=== PATIENT | female | born 1930 | race Caucasian/White ===

== ENCOUNTER 2016-11-17 16:19 | Inpatient (IN) | payer OTHER ==
[~2016-11-17] VITALS: Ht 172.7 cm; Wt 96.5 kg
[2016-11-17] MEDS ORDERED: FURO80TA63 PO (17:04)
[2016-11-17] MEDS ORDERED: TRAZ50TA35 PO (17:04)
[2016-11-17] MEDS ORDERED: ATOR-24 PO (17:04)
[2016-11-17] MEDS ORDERED: GLC/500 PO (17:04)
[2016-11-17] MEDS ORDERED: FLUT0.15 NAE (17:04)
[2016-11-17] MEDS ORDERED: ASPI81TA28 PO (17:04)
[2016-11-17] MEDS ORDERED: LORA-741 PO (17:04)
[2016-11-17] MEDS ORDERED: ALLO300T2 PO (17:04)
[2016-11-17 17:12] LABS: BASO % 0.4 %; BASO ABS # 0.03 K/uL (0-0.2); COMPLETE YES; EOS % 0.6 %; HEMATOCRIT 38.4 % (37-47); IG% 0.4 %; LYMPH % 14.3 %; LYMPH ABS # 0.98 K/uL (1.2-3.4); MEAN CELL VOLUME 90.6 fL (80-100); MEAN CORPUSCULAR HEMOGLOBIN 27.6 pg (25-34); MEAN CORPUSCULAR HGB CONC 30.5 g/dl (32-36); MEAN PLATELET VOLUME 11.3 fL (7.4-10.4); MONO % 5.8 %; NEUT % 78.5 %; PLATELET COUNT 217 K/uL (130-400); RED BLOOD COUNT 4.24 M/uL (4.2-5.4); WHITE BLOOD COUNT 6.85 K/uL (4.8-10.8)
[2016-11-17 17:18] LABS: CALCIUM 9.3 mg/dl (8.5-10.1); CREATININE 2.1 mg/dl (0.60-1.20); POTASSIUM 3.3 mmol/L (3.5-5.1)
--- NOTE | 2016-11-17 17:27 | DIAGNOSTIC IMAGING REPORT ---
CHEST ONE VIEW PORTABLE CLINICAL HISTORY: Respiratory distress COMPARISON STUDY: No previous studies for comparison. FINDINGS: The heart is enlarged. There is slight elevation of the interstitium suggesting mild pulmonary vascular congestion. There is no lobar consolidation. There are no significant pleural fusions.[ IMPRESSION: Cardiomegaly and mild pulmonary vascular congestion. No evidence of lobar consolidation Electronically signed by: Chris Sharif M.D. 11/17/2016 5:26 PM Dictated Date/Time: 11/17/2016 5:25 PM
[2016-11-17 17:30] LABS: ALB/GLOB RATIO 1.2 (0.9-2)
--- NOTE | 2016-11-17 17:41 | EMERGENCY ROOM VISIT NOTE ---
History First contact with patient: 16:47 Chief Complaint: SHORTNESS OF BREATH Stated Complaint: SOB, CHF History of Present Illness The patient is a 86 year old female who presents to the Emergency Room with complaints of exertional shortness of breath over the past month or so that has been progressively worsening. Patient states that she went to see her PCP today for a routine checkup, her doctor was concerned that she hasn't had a 10 pound weight gain in 2 weeks, with increasing lower extremity edema, crackles on lung exam, and shortness of breath at rest. She was sent to the emergency department for further evaluation and possible admission. She does report a history of congestive heart failure in the past and she currently takes 80 mg of oral Lasix daily, she states she has been taking this as prescribed and has not missed any doses. She denies any chest pain, palpitations, dizziness or syncope, abdominal pain, leg pain, urinary complaints, rash. She denies any history of DVT or PE. She is not on blood thinners. Review of Systems A complete 10 point review of systems was reviewed with the patient with pertinent positives and negatives as per history of present illness. All else were negative. Past Medical/Surgical History Medical Problems: (1) Anxiety (2) Breast cancer (3) DM type 2 (diabetes mellitus, type 2) (4) HLD (hyperlipidemia) (5) HTN (hypertension) (6) EVGENY (obstructive sleep apnea) (7) Systolic CHF Social History Smoking Status: Never Smoker Current/Historical Medications Scheduled Allopurinol (Zyloprim), 300 MG PO DAILY Aspirin (Aspirin Ec), 81 MG PO DAILY Atorvastatin (Lipitor), 40 MG PO DAILY Fluticasone Propionate (Nasal) (Flonase Allergy Relief), 2 SPRAYS CLARISSE DAILY Furosemide (Lasix), 80 MG PO DAILY Metformin Hcl (Glucophage), 500 MG PO BID Trazodone Hcl (Trazodone), 2 TAB PO HS Scheduled PRN Lorazepam (Ativan), 0.5 MG PO HS PRN for Insomnia Allergies Coded Allergies: Naproxen (Verified Allergy, Unknown, ., 11/17/16) Tramadol (Verified Allergy, Unknown, ., 11/17/16) Physical Exam Vital Signs Date Time Temp Pulse Resp B/P (MAP) Pulse Ox O2 Delivery O2 Flow Rate FiO2 11/17/16 17:44 Nasal Cannula 2.0 11/17/16 17:42 95 28 102/62 96 Room Air 11/17/16 16:28 95 Room Air 11/17/16 16:28 95 Room Air 11/17/16 16:28 36.9 101 25 98/60 97 Room Air Physical Exam CONSTITUTIONAL: No acute distress, but does appear to have slightly labored breathing. She is able to speak in full sentences. Well appearing and well nourished. Alert and oriented X 4 with normal affect. HEENT: Normocephalic, atraumatic. Pupils equal, round and reactive to light, EOMI. TMs normal. Pharynx normal. NECK: Supple, full active range of motion without discomfort. RESPIRATORY: Mildly tachypnea with labored breathing. Lungs diminished throughout, with fine crackles bilaterally, no wheezing or rhonchi heard. CARDIOVASCULAR: Regular rate and rhythm with no murmurs, rubs or gallops. Normal peripheral perfusion. Bilateral lower extremity 3+ pitting edema. GASTROINTESTINAL: Soft, nontender, distended, obese. Bowel sounds present in all quadrants. MUSCULOSKELETAL: Full range of motion of all joints without discomfort. INTEGUMENTARY: No rash or other significant dermatologic conditions noted. NEUROLOGIC: Cranial nerves II-XII grossly intact. No focal neurologic deficits noted. Medical Decision & Procedures ER Provider Diagnostic Interpretation: CHEST ONE VIEW PORTABLE CLINICAL HISTORY: Respiratory distress COMPARISON STUDY: No previous studies for comparison. FINDINGS: The heart is enlarged. There is slight elevation of the interstitium suggesting mild pulmonary vascular congestion. There is no lobar consolidation. There are no significant pleural fusions. IMPRESSION: Cardiomegaly and mild pulmonary vascular congestion. No evidence of lobar consolidation. Laboratory Results 11/17/16 16:29 Red Blood Count 4.24, Mean Corpuscular Volume 90.6, Mean Corpuscular Hemoglobin 27.6, Mean Corpuscular Hemoglobin Concent 30.5, Mean Platelet Volume 11.3, Neutrophils (%) (Auto) 78.5, Lymphocytes (%) (Auto) 14.3, Monocytes (%) (Auto) 5.8, Eosinophils (%) (Auto) 0.6, Basophils (%) (Auto) 0.4, Neutrophils # (Auto) 5.37, Lymphocytes # (Auto) 0.98, Monocytes # (Auto) 0.40, Eosinophils # (Auto) 0.04, Basophils # (Auto) 0.03 11/17/16 16:29 Test 11/17/16 16:29 11/17/16 17:38 White Blood Count 6.85 K/uL (4.8-10.8) Red Blood Count 4.24 M/uL (4.2-5.4) Hemoglobin 11.7 g/dL (12.0-16.0) Hematocrit 38.4 % (37-47) Mean Corpuscular Volume 90.6 fL (80-100) Mean Corpuscular Hemoglobin 27.6 pg (25-34) Mean Corpuscular Hemoglobin Concent 30.5 g/dl (32-36) Platelet Count 217 K/uL (130-400) Mean Platelet Volume 11.3 fL (7.4-10.4) Neutrophils (%) (Auto) 78.5 % Lymphocytes (%) (Auto) 14.3 % Monocytes (%) (Auto) 5.8 % Eosinophils (%) (Auto) 0.6 % Basophils (%) (Auto) 0.4 % Neutrophils # (Auto) 5.37 K/uL (1.4-6.5) Lymphocytes # (Auto) 0.98 K/uL (1.2-3.4) Monocytes # (Auto) 0.40 K/uL (0.11-0.59) Eosinophils # (Auto) 0.04 K/uL (0-0.5) Basophils # (Auto) 0.03 K/uL (0-0.2) RDW Standard Deviation 59.4 fL (36.4-46.3) RDW Coefficient of Variation 18.4 % (11.5-14.5) Immature Granulocyte % (Auto) 0.4 % Immature Granulocyte # (Auto) 0.03 K/uL (0.00-0.02) Prothrombin Time 12.6 SECONDS (9.0-12.0) Prothromb Time International Ratio 1.2 (0.9-1.1) Activated Partial Thromboplast Time 25.9 SECONDS (21.0-31.0) Partial Thromboplastin Ratio 1.0 Anion Gap 11.0 mmol/L (3-11) Est Creatinine Clear Calc Drug Dose 23.8 ml/min Estimated GFR () 23.9 Estimated GFR (Non- 20.6 BUN/Creatinine Ratio 29.0 (10-20) Calcium Level 9.3 mg/dl (8.5-10.1) Magnesium Level 1.3 mg/dl (1.8-2.4) Total Bilirubin 1.4 mg/dl (0.2-1) Aspartate Amino Transf (AST/SGOT) 34 U/L (15-37) Alanine Aminotransferase (ALT/SGPT) 20 U/L (12-78) Alkaline Phosphatase 73 U/L (45-117) Pro-B-Type Natriuretic Peptide 85594 pg/ml (0-1800) Total Protein 7.0 gm/dl (6.4-8.2) Albumin 3.8 gm/dl (3.4-5.0) Globulin 3.2 gm/dl (2.5-4.0) Albumin/Globulin Ratio 1.2 (0.9-2) Arterial Blood pH 7.47 (7.35-7.45) Arterial Blood Partial Pressure CO2 34 mmHg (35-46) Arterial Blood Partial Pressure O2 78 mm/Hg (80-95) Arterial Blood HCO3 25 mmol/L (19-24) Arterial Blood Oxygen Saturation 95.2 % (90-95) Arterial Blood Base Excess 1.1 mEq/L (-9-1.8) Arterial Blood Gas Delivery ROOM AIR Rainer Test POS (POS) ECG Indication: SOB/dyspnea Rate (beats per minute): 98 Rhythm: sinus rhythm Findings: PVC Medical Decision CC: Patient presenting with complaint of dyspnea on exertion and at rest Interpretation of Labs: No leukocytosis, no anemia, mild hypokalemia, no other significant electrolyte abnormalities, renal insufficiency with elevated creatinine noted (unknown baseline), elevated T bili, liver enzymes otherwise normal. Slightly elevated troponin, significantly elevated pro-BNP. UA negative. Differential Diagnosis: Includes, but not limited to CHF exacerbation, fluid overload, pleural effusion, pulmonary edema, pneumonia, PE, COPD, among others. Medication Reconciliation: I attest that I have personally reviewed the patient' s current medication list. Vital signs review: I reviewed the patient's vital signs and interpret them as follows: T: Afebrile; BP: Hypotensive; HR: Tachycardic; RR: Tachypneic; Pulse Ox: Within normal limits on room air. Summary: Patient was evaluated at bedside, history of physical exam performed. Patient is alert and in no acute distress, but noted to be mildly tachypneic with respiratory rate 26-30 breaths per minute, mild use of intercostal muscles. She is also noted to be hypotensive and tachycardic on initial evaluation. Lung sounds diminished throughout, bilateral rales two thirds of the way up. EKG reviewed at bedside, sinus rhythm with occasional PVCs, wide-complex QRS and possible lateral ischemic changes, no previous EKG for comparison. Orders were placed at bedside for labs including troponin and pro-BNP, UA, chest x-ray to evaluate for congestive heart failure, pneumonia. Patient discussed with Dr. Gaxiola, who agrees with my assessment and plan. Labs reviewed as above, notable for elevated creatinine of 2.1 (unknown baseline ). Significantly elevated proBNP, as well as a partially elevated troponin which may indicate an ischemia versus developing NSTEMI. Chest x-ray suggestive of pulmonary vascular congestion consistent with CHF exacerbation. I discussed the patient with ALLISON Garcia with the hospitalist group, who agrees to evaluate the patient for admission. I did inform her of patient's hypotension, she requested we withhold any diuretics at this time until she can evaluate the patient. Patient reassessed multiple times throughout ED stay, she remained stable, tachycardia improving, and no acute complaints. She continues to deny any chest pain. Patient stable at time of admission. Impression Primary Impression: Congestive heart failure Additional Impression: Renal insufficiency Departure Information Dispostion Admitted as an inpatient Condition FAIR Referrals Danielle Nicholson M.D. (PCP) Patient Instructions My [facility] Problem Qualifiers Primary Impression: Congestive heart failure Congestive heart failure type: unspecified congestive heart failure type Congestive heart failure chronicity: acute on chronic Qualified Codes: I50.9 - Heart failure, unspecified
[2016-11-17 18:00] LABS: ALLEN TEST POS (POS); ARTERIAL BLD GAS O2 SATURATION 95.2 % (90-95); ARTERIAL BLOOD GAS BASE EXCESS 1.1 mEq/L (-9-1.8); ARTERIAL BLOOD GAS HCO3 25 mmol/L (19-24); ARTERIAL BLOOD GAS PO2 78 mm/Hg (80-95); ARTERIAL BLOOD GAS pH 7.47 (7.35-7.45); O2 ADMINISTRATION ROOM AIR
--- NOTE | 2016-11-17 18:31 | DIAGNOSTIC IMAGING REPORT ---
BILATERAL LOWER EXTREMITY VENOUS DOPPLER CLINICAL HISTORY: Bilateral lower extremity edema. COMPARISON STUDY: No previous studies for comparison. TECHNIQUE: Sonography of the deep venous system of the bilateral lower extremities was performed. Compression and augmentation were evaluated. FINDINGS: The bilateral common femoral, superficial femoral and popliteal veins were compressible. Augmentation was normal. Flow was shown within the deep calf vessels. Lower extremity edema was identified. IMPRESSION: No evidence of deep venous thrombus within the bilateral lower extremities. Electronically signed by: Cruz Barajas M.D. 11/17/2016 6:30 PM Dictated Date/Time: 11/17/2016 6:29 PM
[2016-11-17] MEDS ORDERED: ACETAMINOPHEN 325 MG TAB PO PRN (19:00)
[2016-11-17] MEDS ORDERED: PROMETHAZINE HCL INJ 12.5 MG in SODIUM CHLORIDE 0.9% 50ML 50 ML IV PRN (19:15)
--- NOTE | 2016-11-17 19:26 | EMERGENCY ROOM VISIT NOTE ---
ED Visit Note First contact with patient: 16:47 Patient was seen by our PA/COKE OVEN MASON. I was involved in the patient's care and did evaluate the patient myself. I was involved in the care throughout the ER stay. The patient appears to be fluid overloaded. She presents mildly tachycardic and somewhat hypotensive. She has been short of breath. BNP is quite elevated. Troponin is mildly elevated. There is renal insufficiency. A hospital stay for diuresis and further care is required. The on-call hospitalist has been consulted.
[2016-11-17 19:34] VITALS: Ht 172.7 cm; Wt 96.5 kg
[2016-11-17] MEDS ORDERED: GLUCOSE 10 TABS/TUBE PO PRN (20:00)
[2016-11-17] MEDS ORDERED: GLUCAGON FOR INJ 1 MG VIAL SQ PRN (20:00)
[2016-11-17] MEDS ORDERED: GLUCOSE 40% GEL 15 GM TUBE PO PRN (20:00)
[2016-11-17] MEDS ORDERED: DEXTROSE 50% 50 ML SYR IV PRN (20:00)
[2016-11-17 20:15] VITALS: BP 106/70; PULSE 105; TEMP 36.6; O2SAT 100
[2016-11-17] MEDS: INSULIN ASPART 100 UNITS/ML 3 ML PEN SC SCH (21:00)
[2016-11-17] MEDS ORDERED: FUROSEMIDE INJ 40 MG in SYRINGE 0 ML IV ONE (21:00)
[2016-11-17] MEDS ORDERED: POTASSIUM CHLORIDE 20 MEQ TABCR PO ONE (21:00)
[2016-11-17] MEDS ORDERED: INFLUENZA VACCINE HIGH DOSE 65+ 0.5 ML SYR IM. ONE (21:00)
[2016-11-17] MEDS ORDERED: INFLUENZA ADMINISTRATION CHARGE ONE (21:00)
[2016-11-17] MEDS: MAGNESIUM SULFATE 1GM / D5W 1 GM in PREMIXED IN D5W 100 ML IV SCH ×3 (21:01→23:06)
[2016-11-17 21:04] LABS: INR 1.2 (0.9-1.1); PROTHROMBIN TIME (PATIENT) 12.6 SECONDS (9.0-12.0)
[2016-11-17 21:30] LABS: URINE APPEARANCE CLOUDY (CLEAR); URINE BILIRUBIN NEG (NEG); URINE COLOR DK YELLOW; URINE NITRITE NEG (NEG); URINE SPECIFIC GRAVITY 1.022 (1.000-1.030); UROBILINOGEN NEG (NEG)
[2016-11-17 21:42] LABS: MANUAL MICROSCOPIC REQUIRED? YES; REVIEW REQ? NO
[2016-11-17 21:43] LABS: URINE AMORPHOUS SEDIMENT PRESENT (NONE PRSENT); URINE BACTERIA NEG (NEG); URINE MUCUS PRESENT (NONE PRSENT); URINE RBC 0-4 /hpf (0-4)
[2016-11-17] MEDS: HEPARIN SOD 5000 UNIT/0.5 ML CARP SQ SCH (22:05)
--- NOTE | 2016-11-17 22:42 | History and Physical ---
History & Physical Date & Time of Service: Nov 17, 2016 ~ 18:30 Chief Complaint: Shortness of Breath, Weight Gain, Edema Primary Care Physician: Radames Valdez M.D. History of Present Illness 86 year old female who presented to the ED by referral of her PCP for evaluation of shortness of breath, worsening edema, and weight gain. 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 She has been been having symptoms of shortness of breath and edema for the past 1 1/2 months. She initially was taking Lasix 80mg daily and that was increased to BID dosing. She continued to have symptoms so Zaroxolyn 3 times weekly was added. Then due to worsening renal function, Zaroxolyn was stopped and she was continued on the Lasix 80mg BID. Labs were then again checked and renal function was unchanged so she was decreased back down to Lasix 80mg daily. Patient reports persistent shortness of breath. She has shortness of breath with minimal activity. She has had a dry non productive cough. She denies chest pain or palpitations. She reports some mild lightheadedness when standing too quickly. No syncopal events. She has lower extremity edema that has been gradually worsening. Abdomen is a little more swollen as well. She denies abdominal pain, nausea, vomiting, or diarrhea. She denies fever or chills. No urinary symptoms. In the ED, patient is saturating well on room air. CXR shows mild CHF. Creat is 2.1, K+ 3.3, Mg+ 1.3. Past Medical/Surgical History Medical Problems: (1) Anxiety Status: Chronic (2) Breast cancer Permanent Comment: s/p lymph node resection Status: Chronic (3) DM type 2 (diabetes mellitus, type 2) Status: Chronic (4) HLD (hyperlipidemia) Status: Chronic (5) HTN (hypertension) Status: Chronic (6) EVGENY (obstructive sleep apnea) Status: Chronic (7) Systolic CHF Status: Chronic Family History non contributory due to patient's advanced age Social History Smoking Status: Never Smoker Alcohol Use: none Immunizations History of Influenza Vaccine: Yes Influenza Vaccine Date: Nov 27, 2015 History of Tetanus Vaccine?: Yes Tetanus Immunization Date: Sep 17, 2015 History of Pneumococcal: Yes Pneumococcal Date: Oct 29, 2014 Multi-Drug Resistant Organisms History of MDRO: No Allergies Coded Allergies: Naproxen (Verified Allergy, Unknown, ., 11/17/16) Tramadol (Verified Allergy, Unknown, ., 11/17/16) Home Medications Scheduled Allopurinol (Zyloprim), 300 MG PO DAILY Aspirin (Aspirin Ec), 81 MG PO DAILY Atorvastatin (Lipitor), 40 MG PO DAILY Fluticasone Propionate (Nasal) (Flonase Allergy Relief), 2 SPRAYS CLARISSE DAILY Furosemide (Lasix), 80 MG PO DAILY Metformin Hcl (Glucophage), 500 MG PO BID Trazodone Hcl (Trazodone), 2 TAB PO HS Scheduled PRN Lorazepam (Ativan), 0.5 MG PO HS PRN for Insomnia Review of Systems ROS per HPI, all other systems reviewed and negative Physical Exam Vital Signs Date Time Temp Pulse Resp B/P (MAP) Pulse Ox O2 Delivery O2 Flow Rate FiO2 11/17/16 19:41 100 18 102/66 97 Nasal Cannula 2.0 11/17/16 19:34 Nasal Cannula 2.5 11/17/16 17:44 Nasal Cannula 2.0 11/17/16 17:42 95 28 102/62 96 Room Air 11/17/16 16:28 95 Room Air 11/17/16 16:28 95 Room Air 11/17/16 16:28 36.9 101 25 98/60 97 Room Air General Appearance: no apparent distress Head: normocephalic, atraumatic Eyes: normal inspection ENT: hearing grossly normal Neck: supple Respiratory/Chest: + decreased breath sounds, + pertinent finding (mild conversational dyspnea) Cardiovascular: + tachycardia (mild, HR in the 90s; regular rhythm), + pertinent finding (+2 pitting edema BLLE) Abdomen/GI: normal bowel sounds, non tender, soft, + distended Extremities/Musculoskelatal: normal inspection, no calf tenderness Neurologic/Psych: no motor/sensory deficits, alert, normal mood/affect, oriented x 3 Skin: normal color, warm/dry Diagnostics Laboratory Results Results Past 24 Hours Test 11/17/16 16:29 11/17/16 17:38 Range/Units White Blood Count 6.85 4.8-10.8 K/uL Red Blood Count 4.24 4.2-5.4 M/uL Hemoglobin 11.7 12.0-16.0 g/dL Hematocrit 38.4 37-47 % Mean Corpuscular Volume 90.6 80-100 fL Mean Corpuscular Hemoglobin 27.6 25-34 pg Mean Corpuscular Hemoglobin Concent 30.5 32-36 g/dl Platelet Count 217 130-400 K/uL Mean Platelet Volume 11.3 7.4-10.4 fL Neutrophils (%) (Auto) 78.5 % Lymphocytes (%) (Auto) 14.3 % Monocytes (%) (Auto) 5.8 % Eosinophils (%) (Auto) 0.6 % Basophils (%) (Auto) 0.4 % Neutrophils # (Auto) 5.37 1.4-6.5 K/uL Lymphocytes # (Auto) 0.98 1.2-3.4 K/uL Monocytes # (Auto) 0.40 0.11-0.59 K/uL Eosinophils # (Auto) 0.04 0-0.5 K/uL Basophils # (Auto) 0.03 0-0.2 K/uL RDW Standard Deviation 59.4 36.4-46.3 fL RDW Coefficient of Variation 18.4 11.5-14.5 % Immature Granulocyte % (Auto) 0.4 % Immature Granulocyte # (Auto) 0.03 0.00-0.02 K/uL Sodium Level 141 136-145 mmol/L Potassium Level 3.3 3.5-5.1 mmol/L Chloride Level 101 98-107 mmol/L Carbon Dioxide Level 29 21-32 mmol/L Anion Gap 11.0 3-11 mmol/L Blood Urea Nitrogen 61 7-18 mg/dl Creatinine 2.10 0.60-1.20 mg/dl Est Creatinine Clear Calc Drug Dose 23.8 ml/min Estimated GFR () 23.9 Estimated GFR (Non- 20.6 BUN/Creatinine Ratio 29.0 10-20 Random Glucose 115 70-99 mg/dl Calcium Level 9.3 8.5-10.1 mg/dl Magnesium Level 1.3 1.8-2.4 mg/dl Total Bilirubin 1.4 0.2-1 mg/dl Aspartate Amino Transf (AST/SGOT) 34 15-37 U/L Alanine Aminotransferase (ALT/SGPT) 20 12-78 U/L Alkaline Phosphatase 73 45-117 U/L Troponin I 0.086 0-0.045 ng/ml Pro-B-Type Natriuretic Peptide 82731 0-1800 pg/ml Total Protein 7.0 6.4-8.2 gm/dl Albumin 3.8 3.4-5.0 gm/dl Globulin 3.2 2.5-4.0 gm/dl Albumin/Globulin Ratio 1.2 0.9-2 Arterial Blood pH 7.47 7.35-7.45 Arterial Blood Partial Pressure CO2 34 35-46 mmHg Arterial Blood Partial Pressure O2 78 80-95 mm/Hg Arterial Blood HCO3 25 19-24 mmol/L Arterial Blood Oxygen Saturation 95.2 90-95 % Arterial Blood Base Excess 1.1 -9-1.8 mEq/L Arterial Blood Gas Delivery ROOM AIR Rainer Test POS POS Diagnostic Radiology CXR IMPRESSION: Cardiomegaly and mild pulmonary vascular congestion. No evidence of lobar consolidation BLLE DOPPLER IMPRESSION: No evidence of deep venous thrombus within the bilateral lower extremities. Impression Assessment and Plan ACUTE ON CHRONIC SYSTOLIC CHF SONIA ON CKD STAGE III - admit to tele - patient presenting to the ED by referral of her PCP for worsening shortness of breath and edema over the past ~ 6 weeks - patient with history of cardiomyopathy, presumed ischemic, with an EF of 20-25 % on echo from 02/2015 (note patient declined further ischemic work up) - patient had been on beta nadeen therapy in the past however it appears as though she self stopped this over the summer - PCP has been titrating diuretic therapy over the past ~ 6 weeks however patient has developed worsening renal function; baseline creat had run in the mid 1's and more recently has been running ~ 1.9-2.1; may need to allow higher creatine to allow for appropriate diuresis - noted no TAMMY/ARB therapy due to CKD - consider resumption of beta nadeen if BP allows - will give Lasix 40mg IV tonight - place squires for strict I/Os, daily weight, low Na+ diet - update echo - cardiology consult, input appreciated ELEVATED TROPONIN - likely demand ischemia due to acute CHF - no reports of chest pain - EKG shows new intraventricular block which is new from EKG from April 2015 however was present on EKG from the clinic on 11/06/16 - will continue to cycle cardiac enzymes - continue ASA and statin HYPOKALEMIA, HYPOMAGNESEMIA - replace, follow up labs in AM DM - hgb a1c 5.9 08/2016 - hold metformin and utilize SSI while hospitalized DVT PROPHYLAXIS - SQ Heparin CODE STATUS - Patient is a DNR as per my discussion with her. DISPO - In my clinical judgment this beneficiary meets acute admission criteria, established by [facility], that includes being hospitalized through two midnights. 86 yo F with chronic systolic heart failure from presumed ischemic heart disease (declined workup in past/no ICD in place-declined) p/w 10 lb weight gain. She has chronic orthopnea and JASMINE that has not changed. She is comfortable and denies any chest pain. She has had multiple changes in her diuretic therapy as above with Lasix and metolazone in recent weeks. She also reports a dry cough x 2 weeks. Agree that mildly elevated troponin is related to demand ischemia, however, TRS is 5 so would be quick to add heparin if cardiac enzymes carlos overnight. She self administers meds and has noted noncompliance in the past. Would likely benefit from spironolactone, hydralazine/nitrates as cannot take ACEI or ARB at this time, BB. No mortality benefit from dig but this has also been suggested. Defer med management to Cardiology. Repeat TTE pending with h/o . Denies syncope or angina. Awaiting response from Lasix given tonight and titrate as tolerated for symptom relief. I have seen and examined the patient and otherwise agree with the assessment and plan as stated. DO Parmjit Level of Care Telemetry Advanced Directives Existing Living Will: Yes Existing Power of Supervisor Tank Storage: Yes Resuscitation Status DO NOT RESUSCITATE VTE Prophylaxis VTE Risk Assessment Done? Y/N: Yes Risk Level: Moderate
[2016-11-17 23:24] VITALS: BP 105/70; PULSE 99; TEMP 36.8; O2SAT 98
[2016-11-18] MEDS: MAGNESIUM SULFATE 1GM / D5W 1 GM in PREMIXED IN D5W 100 ML IV SCH (00:21)
[2016-11-18 04:00] VITALS: BP 93/68; PULSE 99; TEMP 36.5; O2SAT 94
[2016-11-18 04:14] LABS: HEMATOCRIT 36.7 % (37-47); MEAN CELL VOLUME 91.5 fL (80-100); MEAN CORPUSCULAR HEMOGLOBIN 27.9 pg (25-34); MEAN CORPUSCULAR HGB CONC 30.5 g/dl (32-36); MEAN PLATELET VOLUME 10.7 fL (7.4-10.4); PLATELET COUNT 198 K/uL (130-400); RED BLOOD COUNT 4.01 M/uL (4.2-5.4); WHITE BLOOD COUNT 7.34 K/uL (4.8-10.8)
[2016-11-18 04:43] LABS: BLOOD UREA NITROGEN 59 mg/dl (7-18); BUN/CREATININE RATIO 31.2 (10-20); CALCIUM 8.9 mg/dl (8.5-10.1); CARBON DIOXIDE 28 mmol/L (21-32); CHLORIDE 103 mmol/L (98-107); GLUCOSE 129 mg/dl (70-99); MAGNESIUM 2.2 mg/dl (1.8-2.4); POTASSIUM 3.9 mmol/L (3.5-5.1); SODIUM 141 mmol/L (136-145)
[2016-11-18] MEDS: HEPARIN SOD 5000 UNIT/0.5 ML CARP SQ SCH ×2 (06:11→20:50)
[2016-11-18] MEDS ORDERED: PERFLUTREN LIPID MICROSPHERE (DEFINITY) IV ONE (06:42)
[2016-11-18 08:15] VITALS: BP 101/67; PULSE 99; TEMP 36.5; O2SAT 94
[2016-11-18] MEDS: INSULIN ASPART 100 UNITS/ML 3 ML PEN SC SCH ×4 (09:34→20:44)
[2016-11-18] MEDS: ASPIRIN 81 MG ECTAB PO SCH (09:34)
[2016-11-18] MEDS: ATORVASTATIN 40 MG TAB PO SCH (09:35)
--- NOTE | 2016-11-18 09:36 | ECHOCARDIOGRAM REPORT ---
*NOTICE TO RECEIVING [employer] AGENCY This information is strictly Confidential and protected under [place] law. [place] law prohibits you from making any further disclosure of this information unless further disclosure is expressly permitted by the written consent of the person to whom it pertains or is authorized by law. A general authorization for the release of medical or other information is not sufficient for this purpose. Hospital accepts no responsibility if the information is made available to any other person, INCLUDING THE PATIENT. Interpretation Summary * Name: LOTUS ZALDIVAR Study Date: 11/18/2016 06:17 AM BP: 93/68 mmHg * Patient Location: C.2T\S\E221\S\1 HR: 100 * : 1930 (M/d/y) Gender: Female Height: 68 in * Age: 86 yrs Ethnicity: CA Weight: 229 lb * Ordering Physician: Suzy Martinez * Referring Physician: Radames Valdez * Performed By: Yolie Rao RCS * * Reason For Study: CHF * BSA: 2.2 m2 * -- Conclusions -- * The left ventricle is mildly dilated. * There is diffuse left ventricular myocardial thinning. * There is diffuse hypokinesis to dyskinesis. * Left ventricular systolic function is severely reduced. * The qualitative left ventricular ejection fraction is < 20% * The right ventricle is normal size. * The right ventricular systolic function is reduced as assessed by tricuspid annular plane systolic excursion (TAPSE) (TAPSE <1.6 cm). * The left atrium is moderately dilated. * Aortic valve sclerosis moderate, without significant aortic valvular stenosis. 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 * There is moderate mitral annular calcification. * There is mild secondary mitral regurgitation, due to the cardiomyopathy. * There is moderate to severe tricuspid regurgitation. * Doppler findings do not suggest pulmonary hypertension. * Diastolic dysfunction, Grade III (restrictive pattern), consistent with markedly increased left atrial pressure. * Compared to the report of the prior study performed as an outpatient on 03/26/15 at [facility] , severe LV systolic dysfunction was noted at that time as well. Procedure Details * A complete two-dimensional transthoracic echocardiogram was performed (2D, M-mode, Doppler and color flow Doppler). * A contrast injection of Definity was performed to improve assessment of LV function. * Contrast was injected into an intravenous site in the right arm. * One vial of Definity ultrasound contrast was diluted in normal saline to a total volume of 10 ml. A total of '1' ml of solution was administered during imaging. * Lot # [id number] of Definity utilized for procedure. * Expiration date DEC 15. * The attending nurse who injected the contrast agent was NEETA BUI, RN. Left Ventricle * The left ventricle is mildly dilated. * There is diffuse left ventricular myocardial thinning. * Left ventricular systolic function is severely reduced. * The qualitative left ventricular ejection fraction is < 20% * There is diffuse hypokinesis to dyskinesis. Right Ventricle * The right ventricle is normal size. * The right ventricular systolic function is reduced as assessed by tricuspid annular plane systolic excursion (TAPSE) (TAPSE <1.6 cm). Atria * The left atrium is moderately dilated. * The right atrium is mildly dilated. * There is no evidence of atrial septal defect, but resolution does not allow assessment for a patent foramen ovale. Mitral Valve * There is moderate mitral annular calcification. * There is no mitral valve stenosis. * There is mild mitral regurgitation. Tricuspid Valve * The tricuspid valve is normal. * There is no tricuspid stenosis. * There is moderate to severe tricuspid regurgitation. * Doppler findings do not suggest pulmonary hypertension. Aortic Valve * The aortic valve is trileaflet. * Aortic valve sclerosis moderate, without significant aortic valvular stenosis. * Aortic stenosis is absent. * There is no significant aortic regurgitation. Pulmonic Valve * The pulmonary valve is inadequately visualized, but the Doppler data is adequate for interpretation. * There is no pulmonic valvular stenosis. * Mild pulmonic valvular regurgitation. Great Vessels * The aortic root and proximal ascending aorta are normal sized. Pericardium/Pleural * There is a trace circumferential pericardial effusion. * There are no echocardiographic indications of cardiac tamponade. * Small left pleural effusion. Great Vessels * Normal inferior vena cava diameter and respiratory variation suggests normal central venous pressure. Left Ventricular Diastolic Function * Diastolic dysfunction, Grade III (restrictive pattern), consistent with markedly increased left atrial pressure. MMode 2D Measurements and Calculations IVSd 1.3 cm IVSs 1.3 cm LVIDd 5.7 cm LVIDs 5.2 cm LVPWd 1.1 cm LVPWs 0.82 cm IVS/LVPW 1.1 FS 7.6 % EDV(Teich) 158.2 ml ESV(Teich) 131.7 ml EF(Teich) 16.8 % EDV(cubed) 182.4 ml ESV(cubed) 143.7 ml EF(cubed) 21.2 % % IVS thick 1.7 % % LVPW thick -26.53 % LV mass(C)d 283.5 grams LV mass(C)dI 131.0 grams/m\S\2 LV mass(C)s 211.0 grams LV mass(C)sI 97.5 grams/m\S\2 SV(Teich) 26.5 ml SI(Teich) 12.2 ml/m\S\2 SV(cubed) 38.7 ml SI(cubed) 17.9 ml/m\S\2 Ao root diam 2.8 cm Ao root area 6.1 cm\S\2 ACS 1.3 cm LA dimension 4.3 cm LA/Ao 1.6 LVOT diam 2.0 cm LVOT area 3.3 cm\S\2 Doppler Measurements and Calculations MV E max waqar 104.6 cm/sec MV A max waqar 91.1 cm/sec MV E/A 1.1 MV P1/2t max waqar 119.1 cm/sec MV P1/2t 69.7 msec MVA(P1/2t) 3.2 cm\S\2 MV dec slope 500.6 cm/sec\S\2 MV dec time 0.18 sec Ao V2 max 221.5 cm/sec Ao max PG 19.6 mmHg Ao max PG (full) 19.0 mmHg Ao V2 mean 158.0 cm/sec Ao mean PG 10.9 mmHg Ao V2 VTI 43.2 cm MARIA ALEJANDRA(V,A) 0.60 cm\S\2 MARIA ALEJANDRA(V,D) 0.60 cm\S\2 LV V1 max PG 0.67 mmHg LV V1 max 41.0 cm/sec MR max waqar 413.5 cm/sec MR max PG 68.4 mmHg SV(Ao) 261.7 ml SI(Ao) 120.9 ml/m\S\2 PA V2 max 74.2 cm/sec PA max PG 2.2 mmHg TR max waqar 240.1 cm/sec
[2016-11-18] MEDS: ALLOPURINOL 300 MG TAB PO SCH (09:37)
--- NOTE | 2016-11-18 09:55 | Cardiology Consultation ---
Cardiology Consultation Date of Consultation: Nov 18, 2016 Requesting Physician: Paula Attending Multifocal Lens Assembler: Juliano (Antwon Reese PA-C) History of Present Illness Ms. Villegas is a pleasant 86 year old female who is being seen at the request of Dr. Parnell. Reason for consultation is congestive heart failure. Ms. Villegas notes a nonproductive cough without fevers or chills for the past three weeks. This cough is associated with acute on chronic dyspnea that does not permit her from ambulating from one room to another in her house without having to stop and rest for a few minutes. On questioning she describes 2 pillow orthopnea with intermittent PND, abdominal bloating, lower extremity peripheral edema, and progressive weight gain. She has been followed closely by her PCP with titration of furosemide as well as the addition of metolazone not providing any symptomatic relief, though with worsening renal dysfunction observed. She denies chest pain or discomfort. She denies palpitations. She has mild intermittent lightheadedness with positional changes. No dizziness. No near syncope or syncope. No fevers or chills. No rash. No nausea, vomiting, or diarrhea. No dysuria or hematuria. No uremic symptoms. (Antwon Reese PA-C) Past Medical/Surgical History Problem List: Past Medical and Surgical History: Chronic systolic congestive heart failure, severe cardiomyopathy - presumably ischemic (declined ischemic workup) Chart history of CAD noted in 2010 (declined by the patient) NYHA Class III+ dyspnea with LVEF 15-20% and a QRS interval less than 150 ms. Aortic stenosis, likely underestimated due to reduced systolic function. Type II diabetes mellitus ACEI/ARB contraindicated Stage III chronic kidney disease Untreated obstructive sleep apnea by remote testing Hypertension Dyslipidemia Left breast cancer status post lumpectomy and radiation therapy, 2002 History of gout Right ureteral calculus Generalized anxiety disorder Irritable bowel syndrome Slow transit constipation Osteoarthritis (Antwon Reese PA-C) Family History Family History: Mother at 35 with breast cancer. Her father and four paternal uncles all with DC's prior to the age of 64. Two brothers with DC's. (Antwon Reese PA-C) Social History Social History: Lifelong nonsmoker. No alcohol. No illegal drug use. . Two son and one daughter, four grandchildren, four great grandchildren. 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 (Antwon Reese PA-C) Review Of Systems General: Weight gain. "They said 10 pounds but I don't no." No fever or chills. HEENT: Glasses. Cataracts. No amaurosis fugax. No headaches. Cardiovascular: See above. Pulmonary: See above. + Cough. + Untreated sleep apnea. Sleep testing was ~10- 12 years ago. No pleurisy. No hemoptysis. Gastrointestinal: Constipation of late. Taking laxative as needed. No nausea, vomiting, or diarrhea. Denies melena or hematochezia. Skin: No rash. Musculoskeletal: See above. Neurological: Denies history of TIA, CVA, or seizure disorder. Complete review of systems is as stated above, negative, or noncontributory. (Antwon Reese PA-C) Allergies Coded Allergies: Naproxen (Verified Allergy, Unknown, ., 11/17/16) Tramadol (Verified Allergy, Unknown, ., 11/17/16) Medications Reported Home Medications Medications Dose Route/Sig Max Daily Dose Days Date Category Aspirin Ec (Aspirin) 81 Mg Tab 81 Mg PO DAILY 11/17/16 Reported Flonase Allergy Relief (Fluticasone Propionate (Nasal)) 50 Mcg/Act Spr 2 Sprays CLARISSE DAILY 11/17/16 Reported Zyloprim (Allopurinol) 300 Mg Tab 300 Mg PO DAILY 11/17/16 Reported Ativan (Lorazepam) 0.5 Mg Tab 0.5 Mg PO HS PRN 11/17/16 Reported Trazodone (Trazodone HCl) 50 Mg Tab 2 Tab PO HS 11/17/16 Reported Lipitor (Atorvastatin Calcium) 40 Mg Tab 40 Mg PO DAILY 11/17/16 Reported Lasix (Furosemide) 80 Mg Tab 80 Mg PO DAILY 11/17/16 Reported Glucophage (Metformin Hcl) 500 Mg Tab 500 Mg PO BID 11/17/16 Reported (Antwon Reese PA-C) Physical Exam Vital Signs (Last 8hrs): Last 8 Hrs Date Time Temp Pulse Resp B/P (MAP) Pulse Ox O2 Delivery O2 Flow Rate FiO2 11/18/16 04:00 36.5 99 18 93/68 (76) 94 Nasal Cannula 2.0 11/18/16 04:00 Nasal Cannula 2.0 General Appearance: Alert and Oriented x3. NAD. Hard of hearing HEENT: Normocephalic Atraumatic. PER, EOMI, conjunctiva and sclera clear Neck: Elevated JVP. + HJR. Bilateral carotid bruits. Respiratory: Diminished. Faint left posterior expiratory wheeze. Fine left basilar rales. No rhonchi. Cardiovascular: Somewhat distant heart sounds. Irregular irregular. + Gallop. Grade II/ systolic ejection murmur. No diastolic murmur. No rub. PMI was not felt. Abdomen: Obese. +BS. No bruits. Soft. Nontender. Extremities: 1-2+ edema. No clubbing. No cyanosis. Distal pulses were weak, 1/4 bilaterally. Neuro: No focal deficits. Psychiatric: Normal affect. (Antwon Reese, PARickiC) Data Last 24 Hours Test 11/17/16 16:29 11/17/16 17:38 11/17/16 21:15 11/17/16 22:00 White Blood Count 6.85 K/uL Red Blood Count 4.24 M/uL Hemoglobin 11.7 g/dL Hematocrit 38.4 % Mean Corpuscular Volume 90.6 fL Mean Corpuscular Hemoglobin 27.6 pg Mean Corpuscular Hemoglobin Concent 30.5 g/dl Platelet Count 217 K/uL Mean Platelet Volume 11.3 fL Neutrophils (%) (Auto) 78.5 % Lymphocytes (%) (Auto) 14.3 % Monocytes (%) (Auto) 5.8 % Eosinophils (%) (Auto) 0.6 % Basophils (%) (Auto) 0.4 % Neutrophils # (Auto) 5.37 K/uL Lymphocytes # (Auto) 0.98 K/uL Monocytes # (Auto) 0.40 K/uL Eosinophils # (Auto) 0.04 K/uL Basophils # (Auto) 0.03 K/uL RDW Standard Deviation 59.4 fL RDW Coefficient of Variation 18.4 % Immature Granulocyte % (Auto) 0.4 % Immature Granulocyte # (Auto) 0.03 K/uL Prothrombin Time 12.6 SECONDS Prothromb Time International Ratio 1.2 Activated Partial Thromboplast Time 25.9 SECONDS Partial Thromboplastin Ratio 1.0 Sodium Level 141 mmol/L Potassium Level 3.3 mmol/L Chloride Level 101 mmol/L Carbon Dioxide Level 29 mmol/L Anion Gap 11.0 mmol/L Blood Urea Nitrogen 61 mg/dl Creatinine 2.10 mg/dl Est Creatinine Clear Calc Drug Dose 23.8 ml/min Estimated GFR () 23.9 Estimated GFR (Non- 20.6 BUN/Creatinine Ratio 29.0 Random Glucose 115 mg/dl Calcium Level 9.3 mg/dl Magnesium Level 1.3 mg/dl Total Bilirubin 1.4 mg/dl Aspartate Amino Transf (AST/SGOT) 34 U/L Alanine Aminotransferase (ALT/SGPT) 20 U/L Alkaline Phosphatase 73 U/L Troponin I 0.086 ng/ml Pro-B-Type Natriuretic Peptide 35874 pg/ml Total Protein 7.0 gm/dl Albumin 3.8 gm/dl Globulin 3.2 gm/dl Albumin/Globulin Ratio 1.2 Arterial Blood pH 7.47 Arterial Blood Partial Pressure CO2 34 mmHg Arterial Blood Partial Pressure O2 78 mm/Hg Arterial Blood HCO3 25 mmol/L Arterial Blood Oxygen Saturation 95.2 % Arterial Blood Base Excess 1.1 mEq/L Arterial Blood Gas Delivery ROOM AIR Rainer Test POS Urine Color DK YELLOW Urine Appearance CLOUDY Urine pH 5.0 Urine Specific [place] 1.022 Urine Protein 2+ Urine Glucose (UA) NEG Urine Ketones NEG Urine Occult Blood NEG Urine Nitrite NEG Urine Bilirubin NEG Urine Urobilinogen NEG Urine Leukocyte Esterase NEG Urine WBC (Auto) /hpf Urine RBC (Auto) /hpf Urine Hyaline Casts (Auto) /lpf Urine Epithelial Cells (Auto) /lpf Urine Bacteria (Auto) Urine RBC 0-4 /hpf Urine WBC 1-5 /hpf Urine Epithelial Cells >30 /lpf Urine Renal Epithelial Cells /lpf Urine Amorphous Sediment PRESENT Urine Bacteria NEG Urine Pathogenic Casts /lpf Urine Mucus PRESENT Creatine Kinase MB Ratio Test 11/17/16 22:22 11/18/16 04:00 11/18/16 06:39 Creatine Kinase MB 2.5 ng/ml 2.7 ng/ml Troponin I 0.104 ng/ml 0.094 ng/ml White Blood Count 7.34 K/uL Red Blood Count 4.01 M/uL Hemoglobin 11.2 g/dL Hematocrit 36.7 % Mean Corpuscular Volume 91.5 fL Mean Corpuscular Hemoglobin 27.9 pg Mean Corpuscular Hemoglobin Concent 30.5 g/dl RDW Standard Deviation 59.7 fL RDW Coefficient of Variation 18.2 % Platelet Count 198 K/uL Mean Platelet Volume 10.7 fL Sodium Level 141 mmol/L Potassium Level 3.9 mmol/L Chloride Level 103 mmol/L Carbon Dioxide Level 28 mmol/L Anion Gap 10.0 mmol/L Blood Urea Nitrogen 59 mg/dl Creatinine 1.90 mg/dl Est Creatinine Clear Calc Drug Dose 26.3 ml/min Estimated GFR () 27.0 Estimated GFR (Non- 23.3 BUN/Creatinine Ratio 31.2 Random Glucose 129 mg/dl Calcium Level 8.9 mg/dl Magnesium Level 2.2 mg/dl Creatine Kinase MB Ratio Bedside Glucose 120 mg/dl Chest x-ray on presentation was read as cardiomegaly and mild pulmonary vascular congestion with no evidence of lobar consolidation. EKG dated and timed 17-NOV-2016 @ 16:28:32: Sinus rhythm at 98 bpm with premature supraventricular complexes, occasional premature ventricular complexes , and fusion complexes. Low voltage QRS. Cannot rule out anteroseptal infarct, age undetermined. ST & T wave abnormality, consider lateral ischemia. EKG dated and timed 18-NOV-2016 @ 07:01:36: Sinus tachycardia at 101 bpm with premature atrial complexes with aberrant conduction, left bundle branch block pattern. QRS duration 136 bpm. QTc: 516. Telemetry: Sinus/sinus tachycardia with frequent atrial ectopy, left bundle branch block pattern. No overt atrial fibrillation. No significant pauses. TTE: Pending Venous duplex was negative for DVT bilaterally on admission. Creatinine Clearance (Cockcroft-Gault Equation): 31.81 mL/min (86 y/o female with creatinine 1.9 mg/dL, weight of 96.9 kg) (Antwon Reese PA-C) Assessment & Plan Admission with acute decompensated systolic congestive heart failure, failing outpatient attempts of management with titration of furosemide and use of metolazone. Severe systolic congestive heart failure (presumably ischemic) with NYHA Class III+ dyspnea, LVEF 15-20%, QRS interval less than 150 ms. Valvular heart disease with at least moderate aortic valve stenosis by auscultation today Stage III chronic kidney disease Untreated obstructive sleep apnea Type II diabetes mellitus ACEI/ARB contraindicated Hypokalemia History of left breast cancer status post lumpectomy and radiation therapy, 2001 RECOMMENDATIONS/PLAN: Low dose IV furosemide, 40 mg once or twice a day pending response. Start spironolactone 12.5 mg/day Start Toprol XL 12.5 mg/day Start Isordil 5 mg twice a day if BP permits following the above. No TAMMY inhibition, ARB, or Entresto. No hydralazine. No digoxin. Sodium restrict to less than 1,500 mg/day Maintain electrolytes Transition to oral Torsemide prior to discharge. Continue ASA and statin Recommend reevaluation and treatment of the sleep apnea. Further recommendations pending TTE interpretation, evaluation by Dr. Henao, and her ongoing hospitalization. (Antwon Reese PA-C) CARDIOLOGY ATTENDING ADDENDUM: The patient was seen and personally examined. Agree with Antwon Reese PA-C's findings and plans as documented above. The patient is seen and examined in room 221. She is completed by her daughter at the bedside. She believes her shortness of breath is improved. Exam: Last Vital Signs Documentation Date Time Temp Pulse Resp B/P (MAP) Pulse Ox O2 Delivery O2 Flow Rate FiO2 11/18/16 15:38 36.6 92 20 93/59 (70) 100 Nasal Cannula 2.0 Cardiovascular regular rate and rhythm, no murmurs Extremities 1+ ankle edema Abdomen, mild abdominal bloating EKG, sinus rhythm left bundle branch block, QRS duration 130 ms Telemetry sinus rhythm with occasional ventricular and supraventricular ectopy Echocardiogram performed today and reviewed independently reveals severe left ventricular systolic dysfunction with grade 3 diastolic dysfunction, compared to the prior outpatient echocardiogram performed at [facility] dated 03/26/15, severe LV systolic dysfunction was also noted at that time Impression Acute decompensation, acute on chronic systolic heart failure, based on appearance of echocardiogram, suspect possible ischemic etiology, although given left bundle branch block, 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 Plan: Patient received furosemide 40 mg IV today. Plan to reassess her clinically and reassess her labs tomorrow prior to next dose. Recommend ongoing conservative medical management of cardiomyopathy in this frail 86-year-old female. Tyrese Henao DO (Daniel Henao.,D.O.)
--- NOTE | 2016-11-18 10:21 | Progress Note ---
Medicine Progress Note Date & Time of Visit: Nov 18, 2016 at 10:19. Subjective patient seen sitting in wheelchair states she got winded after walking breathing is better at rest, on 2 liters denies chest pain, dizziness no other symptoms Objective Last 8 Hrs Date Time Temp Pulse Resp B/P (MAP) Pulse Ox O2 Delivery O2 Flow Rate FiO2 11/18/16 08:15 Nasal Cannula 2.0 11/18/16 04:00 36.5 99 18 93/68 (76) 94 Nasal Cannula 2.0 11/18/16 04:00 Nasal Cannula 2.0 Physical Exam: General- oriented x 3, not in distress, speaks in sentences with no effort Head- atraumatic Eyes- EOMI, anicteric ENT- oropharynx clear Neck- supple, no JVD, no adenopathy, no thyromegaly Lungs- mild rales at the bases, no wheezing Heart- regular rhythm; (+) grade 4/6 LPSB murmur, normal rate Abdomen- normal bowel sounds, soft, nontender, no masses Extremities- mild lower leg edema, no calf tenderness; peripheral pulses intact Neuro- alert, oriented x 3; no gross focal deficits Skin- warm & dry Laboratory Results: Last 24 Hours Test 11/17/16 16:29 11/17/16 17:38 11/17/16 21:15 11/17/16 22:00 White Blood Count 6.85 K/uL Red Blood Count 4.24 M/uL Hemoglobin 11.7 g/dL Hematocrit 38.4 % Mean Corpuscular Volume 90.6 fL Mean Corpuscular Hemoglobin 27.6 pg Mean Corpuscular Hemoglobin Concent 30.5 g/dl Platelet Count 217 K/uL Mean Platelet Volume 11.3 fL Neutrophils (%) (Auto) 78.5 % Lymphocytes (%) (Auto) 14.3 % Monocytes (%) (Auto) 5.8 % Eosinophils (%) (Auto) 0.6 % Basophils (%) (Auto) 0.4 % Neutrophils # (Auto) 5.37 K/uL Lymphocytes # (Auto) 0.98 K/uL Monocytes # (Auto) 0.40 K/uL Eosinophils # (Auto) 0.04 K/uL Basophils # (Auto) 0.03 K/uL RDW Standard Deviation 59.4 fL RDW Coefficient of Variation 18.4 % Immature Granulocyte % (Auto) 0.4 % Immature Granulocyte # (Auto) 0.03 K/uL Prothrombin Time 12.6 SECONDS Prothromb Time International Ratio 1.2 Activated Partial Thromboplast Time 25.9 SECONDS Partial Thromboplastin Ratio 1.0 Sodium Level 141 mmol/L Potassium Level 3.3 mmol/L Chloride Level 101 mmol/L Carbon Dioxide Level 29 mmol/L Anion Gap 11.0 mmol/L Blood Urea Nitrogen 61 mg/dl Creatinine 2.10 mg/dl Est Creatinine Clear Calc Drug Dose 23.8 ml/min Estimated GFR () 23.9 Estimated GFR (Non- 20.6 BUN/Creatinine Ratio 29.0 Random Glucose 115 mg/dl Calcium Level 9.3 mg/dl Magnesium Level 1.3 mg/dl Total Bilirubin 1.4 mg/dl Aspartate Amino Transf (AST/SGOT) 34 U/L Alanine Aminotransferase (ALT/SGPT) 20 U/L Alkaline Phosphatase 73 U/L Troponin I 0.086 ng/ml Pro-B-Type Natriuretic Peptide 88556 pg/ml Total Protein 7.0 gm/dl Albumin 3.8 gm/dl Globulin 3.2 gm/dl Albumin/Globulin Ratio 1.2 Arterial Blood pH 7.47 Arterial Blood Partial Pressure CO2 34 mmHg Arterial Blood Partial Pressure O2 78 mm/Hg Arterial Blood HCO3 25 mmol/L Arterial Blood Oxygen Saturation 95.2 % Arterial Blood Base Excess 1.1 mEq/L Arterial Blood Gas Delivery ROOM AIR Rainer Test POS Urine Color DK YELLOW Urine Appearance CLOUDY Urine pH 5.0 Urine Specific [place] 1.022 Urine Protein 2+ Urine Glucose (UA) NEG Urine Ketones NEG Urine Occult Blood NEG Urine Nitrite NEG Urine Bilirubin NEG Urine Urobilinogen NEG Urine Leukocyte Esterase NEG Urine WBC (Auto) /hpf Urine RBC (Auto) /hpf Urine Hyaline Casts (Auto) /lpf Urine Epithelial Cells (Auto) /lpf Urine Bacteria (Auto) Urine RBC 0-4 /hpf Urine WBC 1-5 /hpf Urine Epithelial Cells >30 /lpf Urine Renal Epithelial Cells /lpf Urine Amorphous Sediment PRESENT Urine Bacteria NEG Urine Pathogenic Casts /lpf Urine Mucus PRESENT Creatine Kinase MB Ratio Test 11/17/16 22:22 11/18/16 04:00 11/18/16 06:39 Creatine Kinase MB 2.5 ng/ml 2.7 ng/ml Troponin I 0.104 ng/ml 0.094 ng/ml White Blood Count 7.34 K/uL Red Blood Count 4.01 M/uL Hemoglobin 11.2 g/dL Hematocrit 36.7 % Mean Corpuscular Volume 91.5 fL Mean Corpuscular Hemoglobin 27.9 pg Mean Corpuscular Hemoglobin Concent 30.5 g/dl RDW Standard Deviation 59.7 fL RDW Coefficient of Variation 18.2 % Platelet Count 198 K/uL Mean Platelet Volume 10.7 fL Sodium Level 141 mmol/L Potassium Level 3.9 mmol/L Chloride Level 103 mmol/L Carbon Dioxide Level 28 mmol/L Anion Gap 10.0 mmol/L Blood Urea Nitrogen 59 mg/dl Creatinine 1.90 mg/dl Est Creatinine Clear Calc Drug Dose 26.3 ml/min Estimated GFR () 27.0 Estimated GFR (Non- 23.3 BUN/Creatinine Ratio 31.2 Random Glucose 129 mg/dl Calcium Level 8.9 mg/dl Magnesium Level 2.2 mg/dl Creatine Kinase MB Ratio Bedside Glucose 120 mg/dl Assessment & Plan ACUTE ON CHRONIC SYSTOLIC CHF SONIA ON CKD STAGE III - Cardiology input noted - Lasix IV + Spironolactone,Metoprolol ordered - monitor response, crea ELEVATED TROPONIN - likely demand ischemia due to acute CHF - no reports of chest pain HYPOKALEMIA, HYPOMAGNESEMIA - improved, monitor DM - hgb a1c 5.9 08/2016 - hold metformin and utilize SSI while hospitalized DVT PROPHYLAXIS - SQ Heparin CODE STATUS - Patient is a DNR DISPO pending lives at home will need PT/OT, 2 step exercise test if not going to Rehab/SNF, will need home health services Current Inpatient Medications: Current Inpatient Medications Medications (Trade) Dose Ordered Sig/Jeri Route Start Time Stop Time Status Last Admin Dose Admin Acetaminophen (Tylenol Tab) 650 mg Q4H PRN PO 11/17/16 19:00 12/17/16 18:59 Promethazine HCl 12.5 mg/Sodium Chloride 50.5 ml @ 204 mls/hr Q6H PRN IV 11/17/16 19:15 12/17/16 19:14 Allopurinol (Zyloprim Tab) 300 mg DAILY PO 11/18/16 09:00 12/18/16 08:59 11/18/16 09:37 300 MG Aspirin (Ecotrin Tab) 81 mg DAILY PO 11/18/16 09:00 12/18/16 08:59 11/18/16 09:34 81 MG Atorvastatin Calcium (Lipitor Tab) 40 mg DAILY PO 11/18/16 09:00 12/18/16 08:59 11/18/16 09:35 40 MG Lorazepam (Ativan Tab) 0.5 mg HS PRN PO 11/17/16 20:00 12/17/16 19:59 Insulin Aspart (novoLOG ASPART) SLIDING SCALE If C... ACHS SC 11/17/16 21:00 12/17/16 20:59 11/18/16 09:34 1 UNITS Glucose (Glucose 40% Gel) 15-30 GRAMS 15 GRAMS... UD PRN PO 11/17/16 20:00 12/17/16 19:59 Glucose (Glucose Chew Tab) 4-8 Tablets 4 Tabl... UD PRN PO 11/17/16 20:00 12/17/16 19:59 Dextrose (Dextrose 50% 50ML Syringe) 25-50ML OF 50% DW IV FOR... UD PRN IV 11/17/16 20:00 12/17/16 19:59 Glucagon (Glucagon Inj) 1 mg UD PRN SQ 11/17/16 20:00 12/17/16 19:59 Heparin Sodium (Porcine) (Heparin Sq 5000 Unit/0.5ml) 5,000 unit Q12 SQ 11/18/16 21:00 12/17/16 21:59 Furosemide 40 mg/ Syringe 4 ml @ 4 mls/min ONE ONCE IV 11/18/16 10:30 11/18/16 10:31 Potassium Chloride (Klor-Con M10) 10 meq ONE ONCE PO 11/18/16 10:30 11/18/16 10:31 Spironolactone (Aldactone Tab) 12.5 mg QAM PO 11/19/16 09:00 12/19/16 08:59 Metoprolol Succinate (Toprol Xl Tab) 12.5 mg QAM PO 11/18/16 11:00 12/18/16 10:59
[2016-11-18] MEDS ORDERED: POTASSIUM CHLORIDE 10 MEQ TABCR PO ONE (10:30)
[2016-11-18] MEDS ORDERED: FUROSEMIDE INJ 40 MG in SYRINGE 0 ML IV ONE (10:30)
[2016-11-18] MEDS: METOPROLOL SUCC 25MG EXT REL TAB PO SCH (11:17)
[2016-11-18 14:54] VITALS: BP 98/68; PULSE 91; O2SAT 97
[2016-11-18 15:23] VITALS: BP 103/69; PULSE 94; TEMP 35; O2SAT 99
[2016-11-18 15:38] VITALS: BP 93/59; PULSE 92; TEMP 36.6; O2SAT 100
[2016-11-18 20:20] VITALS: BP 103/69; PULSE 92; TEMP 36.4; O2SAT 99
[2016-11-19] VITALS (7 sets, daily range): BP systolic 96–119; BP diastolic 58–70; PULSE 90–99; TEMP 36.3–37; O2SAT 94–100
[2016-11-19] MEDS ORDERED: FUROSEMIDE INJ 40 MG in SYRINGE 0 ML IV STA (04:01)
[2016-11-19] MEDS: ALLOPURINOL 300 MG TAB PO SCH (07:38)
[2016-11-19] MEDS: METOPROLOL SUCC 25MG EXT REL TAB PO SCH (07:38)
[2016-11-19] MEDS: ATORVASTATIN 40 MG TAB PO SCH (07:39)
[2016-11-19] MEDS: ASPIRIN 81 MG ECTAB PO SCH (07:39)
[2016-11-19] MEDS: SPIRONOLACTONE 25 MG TAB PO SCH (07:40)
[2016-11-19] MEDS: HEPARIN SOD 5000 UNIT/0.5 ML CARP SQ SCH ×2 (07:44→19:57)
[2016-11-19 07:49] LABS: BUN/CREATININE RATIO 31.4 (10-20); CALCIUM 9.5 mg/dl (8.5-10.1); POTASSIUM 4.2 mmol/L (3.5-5.1)
[2016-11-19] MEDS: INSULIN ASPART 100 UNITS/ML 3 ML PEN SC SCH ×4 (08:15→19:56)
--- NOTE | 2016-11-19 09:34 | Cardiology Follow-Up ---
Subjective General Date of Service: Nov 19, 2016. History of Present Illness Patient seen and examined. Dyspneic with minimal ambulation Nonproductive cough Unchanged fluid retention Slept well "except for when they woke me." No chest pain. No palpitations. No fevers or chills. No rash. Telemetry: Currently sinus at 93 bpm. Intermittent sinus tachycardia. Atrial ectopy. Nonspecific intraventricular block, left bundle branch block pattern. November 18, 2016 TTE Interpretation Summary ([facility], Dr. Henao): The left ventricle is mildly dilated. There is diffuse left ventricular myocardial thinning. There is diffuse hypokinesis to dyskinesis. Left ventricular systolic function is severely reduced. The qualitative left ventricular ejection fraction is < 20%. The right ventricle is normal size. The right ventricular systolic function is reduced as assessed by tricuspid annular plane systolic excursion (TAPSE) (TAPSE <1.6 cm). The left atrium is moderately dilated. Aortic valve sclerosis moderate, without significant aortic valvular stenosis. 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 There is moderate mitral annular calcification. There is mild secondary mitral regurgitation, due to the cardiomyopathy. There is moderate to severe tricuspid regurgitation. Doppler findings do not suggest pulmonary hypertension. Diastolic dysfunction, Grade III (restrictive pattern), consistent with markedly increased left atrial pressure. Compared to the report of the prior study performed as an outpatient on 03/26/15 at [facility], severe LV systolic dysfunction was noted at that time as well. Allergies Coded Allergies: Naproxen (Verified Allergy, Unknown, ., 11/17/16) Tramadol (Verified Allergy, Unknown, ., 11/17/16) Social History Hx Tobacco Use In Past Year?: No Hx Alcohol Use - Type And Amou: No Physical Exam Vital Signs Last Vital Signs Documentation Date Time Temp Pulse Resp B/P (MAP) Pulse Ox O2 Delivery O2 Flow Rate FiO2 11/19/16 07:45 Nasal Cannula 2.0 11/19/16 07:30 37.0 90 18 119/68 (85) 100 Physical Exam Constitutional: General Apperance: overweight Level of Distress: NAD Psychiatric: Mental Status: active & alert Orientation: to time, to place, to person Memory: recent memory normal, remote memory normal Head: normocephalic, atraumatic Eyes: Pupils: PERRLA Neck: pertinent finding (No overt JVD (examined in the bedside chair)) Lungs: Respiratory effort: no dyspnea Auscultation: no wheezing, no rales/crackles, no rhonchi, deminished air movement, decreased breath sounds Cardiovascular: Heart Auscultation: no rubs, II/ TONIA, gallop, irregular rate rhythm Peripheral Pulses: Radial Pulse: normal on the left, normal on the right Dorsalis Pedis Pulse: absent on the left, absent on the right Abdomen: Bowel Sounds: normal Inspection & Palpation: soft, non-distended, no masses Extremities: no varicosities, no clubbing, no ulcers, edema (1-2+) Neurologic: Cranial Nerves: grossly intact Additional Comments: Avila catheter draining concentrated urine Assessment and Plan Assessment and Plan Admission with acute decompensated systolic congestive heart failure, failing outpatient attempts of management with titration of furosemide and use of metolazone. Severe systolic congestive heart failure (presumably ischemic) with NYHA Class III+ dyspnea, LVEF 15-20%, QRS interval less than 150 ms. Stage III chronic kidney disease Untreated obstructive sleep apnea Type II diabetes mellitus ACEI/ARB contraindicated History of left breast cancer status post lumpectomy and radiation therapy, 2001 RECOMMENDATIONS/PLAN: Continue cautious diuresis. She received 40 mg IV furosemide at 04:11 this morning. Orders written for another dose this afternoon Increase Toprol XL to 25 mg/day. Trial Isordil 5 mg twice a day Continue low dose spironolactone. No TAMMY inhibition, ARB, Entresto, hydralazine, or digoxin. Maintain electrolytes Sodium restrict to less than 1,500 mg/day Transition to oral Torsemide prior to discharge. Assess need for supplemental oxygen therapy prior to discharge Continue ASA and statin Consider reevaluation and treatment of the sleep apnea. CARDIOLOGY ATTENDING ADDENDUM: The patient was seen and personally examined. Agree with Antwon Reese PA-C's findings and plans as documented above. Laboratory Results Last 24 Hours Test 11/18/16 10:50 11/18/16 16:10 11/18/16 20:23 11/19/16 06:36 Bedside Glucose 121 mg/dl 130 mg/dl 140 mg/dl 115 mg/dl Test 9/22/17 06:59 Sodium Level 138 mmol/L Potassium Level 4.2 mmol/L Chloride Level 102 mmol/L Carbon Dioxide Level 25 mmol/L Anion Gap 11.0 mmol/L Blood Urea Nitrogen 63 mg/dl Creatinine 2.00 mg/dl Est Creatinine Clear Calc Drug Dose 24.4 ml/min Estimated GFR () 25.4 Estimated GFR (Non- 21.9 BUN/Creatinine Ratio 31.4 Random Glucose 111 mg/dl Calcium Level 9.5 mg/dl
--- NOTE | 2016-11-19 12:33 | DIAGNOSTIC IMAGING REPORT ---
SINGLE VIEW CHEST CLINICAL HISTORY: Follow-up CHF. FINDINGS: An AP, portable, upright chest radiograph is compared to study dated 11/17/2016. The examination is degraded by portable technique and patient rotation. The heart is enlarged and there is atherosclerotic calcification of the thoracic and. There is mild pulmonary basilar congestion. Small pleural effusions are suspected and there is bibasilar atelectasis. No pneumothorax is seen. The skeletal structures are osteopenic. The bony thorax is grossly intact. IMPRESSION: 1. Cardiomegaly with mild pulmonary vascular congestion. 2. Suspect small pleural effusions. Electronically signed by: Sohan Burch M.D. 11/19/2016 12:31 PM Dictated Date/Time: 11/19/2016 12:30 PM
[2016-11-19] MEDS ORDERED: FUROSEMIDE INJ 40 MG in SYRINGE 0 ML IV ONE (16:00)
[2016-11-19] MEDS: ISOSORBIDE DINITRATE 5 MG TAB PO SCH (16:08)
--- NOTE | 2016-11-19 19:47 | Progress Note ---
Medicine Progress Note Date & Time of Visit: Nov 19, 2016 at 19:47. Subjective seen sitting in bed, watching tv, comfortable had mild shortness of breath with exertion no chest pain no other symptoms Objective Last 8 Hrs Date Time Temp Pulse Resp B/P (MAP) Pulse Ox O2 Delivery O2 Flow Rate FiO2 11/19/16 19:38 36.4 96 20 96/63 (74) 100 Nasal Cannula 2.0 11/19/16 17:02 36.5 90 18 103/69 (80) 98 Nasal Cannula 2.0 11/19/16 16:00 Nasal Cannula 2.0 11/19/16 11:52 Nasal Cannula 2.0 Physical Exam: General- oriented x 3, not in distress, speaks in sentences with no effort Eyes- anicteric Neck- supple, no JVD Lungs- mild rales at the bases, no wheezes Heart- regular rhythm; (+) grade 4/6 LPSB murmur, normal rate Abdomen- normal bowel sounds, soft, nontender, no masses Extremities- grade 1 lower leg edema, no calf tenderness; peripheral pulses intact Neuro- alert, oriented x 3; no gross focal deficits Skin- warm & dry Laboratory Results: Last 24 Hours Test 11/18/16 20:23 11/19/16 06:36 11/19/16 06:59 11/19/16 11:38 Bedside Glucose 140 mg/dl 115 mg/dl 106 mg/dl Sodium Level 138 mmol/L Potassium Level 4.2 mmol/L Chloride Level 102 mmol/L Carbon Dioxide Level 25 mmol/L Anion Gap 11.0 mmol/L Blood Urea Nitrogen 63 mg/dl Creatinine 2.00 mg/dl Est Creatinine Clear Calc Drug Dose 24.4 ml/min Estimated GFR () 25.4 Estimated GFR (Non- 21.9 BUN/Creatinine Ratio 31.4 Random Glucose 111 mg/dl Calcium Level 9.5 mg/dl Test 11/19/16 16:17 Bedside Glucose 110 mg/dl Assessment & Plan ACUTE ON CHRONIC SYSTOLIC CHF SONIA ON CKD STAGE III - Cardiology input noted - Lasix IV BID + Spironolactone,Metoprolol, Imdur ordered - diuresing slowly - monitor response, crea ELEVATED TROPONIN - likely demand ischemia due to acute CHF - no reports of chest pain HYPOKALEMIA, HYPOMAGNESEMIA - improved, monitor DM - hgb a1c 5.9 08/2016 - hold metformin and utilize SSI while hospitalized DVT PROPHYLAXIS - SQ Heparin CODE STATUS - Patient is a DNR DISPO pending lives at home will need PT/OT, 2 step exercise test if not going to Rehab/SNF, will need home health services Current Inpatient Medications: Current Inpatient Medications Medications (Trade) Dose Ordered Sig/Jeri Route Start Time Stop Time Status Last Admin Dose Admin Acetaminophen (Tylenol Tab) 650 mg Q4H PRN PO 11/17/16 19:00 12/17/16 18:59 Promethazine HCl 12.5 mg/Sodium Chloride 50.5 ml @ 204 mls/hr Q6H PRN IV 11/17/16 19:15 12/17/16 19:14 Allopurinol (Zyloprim Tab) 300 mg DAILY PO 11/18/16 09:00 12/18/16 08:59 11/19/16 07:38 300 MG Aspirin (Ecotrin Tab) 81 mg DAILY PO 11/18/16 09:00 12/18/16 08:59 11/19/16 07:39 81 MG Atorvastatin Calcium (Lipitor Tab) 40 mg DAILY PO 11/18/16 09:00 12/18/16 08:59 11/19/16 07:39 40 MG Lorazepam (Ativan Tab) 0.5 mg HS PRN PO 11/17/16 20:00 12/17/16 19:59 Insulin Aspart (novoLOG ASPART) SLIDING SCALE If C... ACHS SC 11/17/16 21:00 12/17/16 20:59 11/19/16 17:22 2 UNITS Glucose (Glucose 40% Gel) 15-30 GRAMS 15 GRAMS... UD PRN PO 11/17/16 20:00 12/17/16 19:59 Glucose (Glucose Chew Tab) 4-8 Tablets 4 Tabl... UD PRN PO 11/17/16 20:00 12/17/16 19:59 Dextrose (Dextrose 50% 50ML Syringe) 25-50ML OF 50% DW IV FOR... UD PRN IV 11/17/16 20:00 12/17/16 19:59 Glucagon (Glucagon Inj) 1 mg UD PRN SQ 11/17/16 20:00 12/17/16 19:59 Heparin Sodium (Porcine) (Heparin Sq 5000 Unit/0.5ml) 5,000 unit Q12 SQ 11/18/16 21:00 12/17/16 21:59 11/19/16 07:44 5,000 UNIT Spironolactone (Aldactone Tab) 12.5 mg QAM PO 11/19/16 09:00 12/19/16 08:59 11/19/16 07:40 12.5 MG Metoprolol Succinate (Toprol Xl Tab) 25 mg QAM PO 11/20/16 09:00 12/18/16 10:59 Isosorbide Dinitrate (Isordil Tab) 5 mg BID17 PO 11/19/16 17:00 12/19/16 16:59 11/19/16 16:08 5 MG
[2016-11-20] VITALS (7 sets, daily range): BP systolic 94–128; BP diastolic 65–99; PULSE 82–135; TEMP 36.5–36.9; O2SAT 97–99
[2016-11-20 05:23] LABS: HEMATOCRIT 39.4 % (37-47); MEAN CELL VOLUME 90.8 fL (80-100); MEAN CORPUSCULAR HEMOGLOBIN 28.8 pg (25-34); MEAN CORPUSCULAR HGB CONC 31.7 g/dl (32-36); MEAN PLATELET VOLUME 11.2 fL (7.4-10.4); PLATELET COUNT 203 K/uL (130-400); RED BLOOD COUNT 4.34 M/uL (4.2-5.4)
[2016-11-20 05:45] LABS: BUN/CREATININE RATIO 33.1 (10-20); CALCIUM 9.2 mg/dl (8.5-10.1); POTASSIUM 4.2 mmol/L (3.5-5.1)
[2016-11-20] MEDS: METOPROLOL SUCC 25MG EXT REL TAB PO SCH (07:56)
[2016-11-20] MEDS: SPIRONOLACTONE 25 MG TAB PO SCH (07:56)
[2016-11-20] MEDS: ASPIRIN 81 MG ECTAB PO SCH (07:56)
[2016-11-20] MEDS: ALLOPURINOL 300 MG TAB PO SCH (07:57)
[2016-11-20] MEDS: ATORVASTATIN 40 MG TAB PO SCH (07:57)
[2016-11-20] MEDS: ISOSORBIDE DINITRATE 5 MG TAB PO SCH ×2 (07:58→15:37)
[2016-11-20] MEDS: INSULIN ASPART 100 UNITS/ML 3 ML PEN SC SCH ×4 (07:59→19:37)
[2016-11-20] MEDS: HEPARIN SOD 5000 UNIT/0.5 ML CARP SQ SCH ×2 (08:01→20:43)
--- NOTE | 2016-11-20 09:28 | Progress Note ---
Medicine Progress Note Date & Time of Visit: Nov 20, 2016 at 09:23. Subjective patient noted to be tachycardic in early AM, EKG showing possible SVT, HR 136 BP on the low side, patient asymptomatic back to SR HR 65 this am after Metoprolol PO sitting in bedside chair, reports orthopnea, no chest pain/dizziness also reports lack of sleep, being awakened at night to be checked and to get blood work no other symptoms Objective Last 8 Hrs Date Time Temp Pulse Resp B/P (MAP) Pulse Ox O2 Delivery O2 Flow Rate FiO2 11/20/16 08:00 Nasal Cannula 2.0 11/20/16 06:52 36.6 135 24 98/66 (77) 97 Nasal Cannula 2.0 11/20/16 04:45 36.5 132 20 95/65 (75) 97 Nasal Cannula 2.0 11/20/16 04:45 97 Nasal Cannula 2.0 Physical Exam: General- oriented x 3, not in distress, speaks in sentences with no effort Neck- no JVD Lungs- decreased breath sounds right base, mild rales on the left Heart- regular rhythm; (+) grade 4/6 LPSB murmur, normal rate Abdomen- normal bowel sounds, soft, nontender, no masses Extremities- grade 1 lower leg edema, no calf tenderness; peripheral pulses intact Neuro- alert, oriented x 3; no gross focal deficits Skin- warm & dry Laboratory Results: Last 24 Hours Test 11/19/16 11:38 11/19/16 16:17 11/19/16 19:48 11/20/16 05:07 Bedside Glucose 106 mg/dl 110 mg/dl 127 mg/dl White Blood Count 8.20 K/uL Red Blood Count 4.34 M/uL Hemoglobin 12.5 g/dL Hematocrit 39.4 % Mean Corpuscular Volume 90.8 fL Mean Corpuscular Hemoglobin 28.8 pg Mean Corpuscular Hemoglobin Concent 31.7 g/dl RDW Standard Deviation 60.1 fL RDW Coefficient of Variation 18.5 % Platelet Count 203 K/uL Mean Platelet Volume 11.2 fL Sodium Level 137 mmol/L Potassium Level 4.2 mmol/L Chloride Level 102 mmol/L Carbon Dioxide Level 26 mmol/L Anion Gap 9.0 mmol/L Blood Urea Nitrogen 66 mg/dl Creatinine 2.00 mg/dl Est Creatinine Clear Calc Drug Dose 24.4 ml/min Estimated GFR () 25.4 Estimated GFR (Non- 21.9 BUN/Creatinine Ratio 33.1 Random Glucose 116 mg/dl Calcium Level 9.2 mg/dl Test 11/20/16 06:57 Bedside Glucose 111 mg/dl Assessment & Plan ACUTE ON CHRONIC SYSTOLIC CHF SONIA ON CKD STAGE III - Cardiology input noted - Lasix IV BID + Spironolactone,Metoprolol, Imdur ordered - repeat CXR today Lasix 40mg IV now further diuretic recommendations per Cardiology - diuresing slowly - monitor response, crea EPISODE OF TACHYCARDIA - WIDE COMPLEX, HR 130S - resolved this AM - electrolytes ok ELEVATED TROPONIN - likely demand ischemia due to acute CHF - no reports of chest pain HYPOKALEMIA, HYPOMAGNESEMIA - improved, monitor DM - hgb a1c 5.9 08/2016 - hold metformin and utilize SSI while hospitalized DVT PROPHYLAXIS - SQ Heparin CODE STATUS - Patient is a DNR DISPO pending lives at home will need PT/OT, 2 step exercise test if not going to Rehab/SNF, will need home health services Current Inpatient Medications: Current Inpatient Medications Medications (Trade) Dose Ordered Sig/Jeri Route Start Time Stop Time Status Last Admin Dose Admin Acetaminophen (Tylenol Tab) 650 mg Q4H PRN PO 11/17/16 19:00 12/17/16 18:59 Promethazine HCl 12.5 mg/Sodium Chloride 50.5 ml @ 204 mls/hr Q6H PRN IV 11/17/16 19:15 12/17/16 19:14 Allopurinol (Zyloprim Tab) 300 mg DAILY PO 11/18/16 09:00 12/18/16 08:59 11/20/16 07:57 300 MG Aspirin (Ecotrin Tab) 81 mg DAILY PO 11/18/16 09:00 12/18/16 08:59 11/20/16 07:56 81 MG Atorvastatin Calcium (Lipitor Tab) 40 mg DAILY PO 11/18/16 09:00 12/18/16 08:59 11/20/16 07:57 40 MG Lorazepam (Ativan Tab) 0.5 mg HS PRN PO 11/17/16 20:00 12/17/16 19:59 Insulin Aspart (novoLOG ASPART) SLIDING SCALE If C... ACHS SC 11/17/16 21:00 12/17/16 20:59 11/20/16 07:59 2 UNITS Glucose (Glucose 40% Gel) 15-30 GRAMS 15 GRAMS... UD PRN PO 11/17/16 20:00 12/17/16 19:59 Glucose (Glucose Chew Tab) 4-8 Tablets 4 Tabl... UD PRN PO 11/17/16 20:00 12/17/16 19:59 Dextrose (Dextrose 50% 50ML Syringe) 25-50ML OF 50% DW IV FOR... UD PRN IV 11/17/16 20:00 12/17/16 19:59 Glucagon (Glucagon Inj) 1 mg UD PRN SQ 11/17/16 20:00 12/17/16 19:59 Heparin Sodium (Porcine) (Heparin Sq 5000 Unit/0.5ml) 5,000 unit Q12 SQ 11/18/16 21:00 12/17/16 21:59 11/20/16 08:01 5,000 UNIT Spironolactone (Aldactone Tab) 12.5 mg QAM PO 11/19/16 09:00 12/19/16 08:59 11/20/16 07:56 12.5 MG Metoprolol Succinate (Toprol Xl Tab) 25 mg QAM PO 11/20/16 09:00 12/18/16 10:59 11/20/16 07:56 25 MG Isosorbide Dinitrate (Isordil Tab) 5 mg BID17 PO 11/19/16 17:00 12/19/16 16:59 11/20/16 07:58 5 MG Furosemide 40 mg/ Syringe 4 ml @ 4 mls/min ONE IV 11/20/16 09:30 12/20/16 09:29 UNV
[2016-11-20] MEDS ORDERED: FUROSEMIDE INJ 40 MG in SYRINGE 0 ML IV ONE ×2 (10:00→10:30)
[2016-11-20] MEDS ORDERED: DIGOXIN 0.25 MG TAB PO ONE (10:30)
--- NOTE | 2016-11-20 10:30 | CARDIOLOGY PROGRESS NOTE ---
DATE: 11/20/2016 HISTORY OF PRESENT ILLNESS: Ms. Villegas is an 86-year-old female who was admitted to the hospital on 11/17/2016 with acute decompensated systolic heart failure. The patient has been treated with intravenous diuretic therapy. She has had mild diuresis at best. The patient failed outpatient therapy prior to admission. Over the past 24 hours, her fluid balance is essentially even. Overnight, she developed an episode of sustained supraventricular tachycardia. Heart rate approximately 130 beats per minute. The patient states she was awoken by the staff to notice her heart racing. The tachycardia spontaneously resolved. She is currently resting comfortably. Telemetry demonstrates sinus rhythm with left bundle-branch block and occasional premature atrial complexes as well as atrial bigeminy. She describes orthopnea as well as paroxysmal nocturnal dyspnea. She notes dyspnea with minimal exertion. Denies chest discomfort. No lightheadedness, dizziness, syncope or near syncope. REVIEW OF SYSTEMS: The pertinent positives noted above. A comprehensive 10-system review is otherwise negative. LABORATORY DATA: Sodium 137, potassium 4.2, chloride is 102, BUN is 66, and creatinine is 2.0. White blood cell count 8.20, hemoglobin is 12.5, and platelet count is 203. Echocardiogram read by Dr. Henao on November 18 demonstrates severe left ventricular systolic dysfunction with an ejection fraction of less than 20% and aortic sclerosis, moderate, without significant stenosis. 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 PHYSICAL EXAMINATION: VITAL SIGNS: Temperature 36.6 degrees centigrade, pulse currently 90 beats per minute and irregular, respiratory rate 24 breaths per minute, blood pressure 98/66, and SaO2 is 97% on 2 liters. GENERAL: NAD, awake and alert. HEENT: Her mucous membranes are moist. No scleral icterus. Conjunctivae pink. NECK: Supple without carotid bruit. There is no elevated jugular venous distention in upright position. HEART: Regular with frequent ectopy. Normal S1 and S2. There is a soft 1/6 systolic ejection murmur heard best at the right second intercostal space. LUNGS: Demonstrate crackles at the bases bilaterally, faint expiratory wheezing noted. ABDOMEN: Soft with mild distention. No rebound or guarding. Normal bowel sounds. EXTREMITIES: Demonstrate 2+ pitting LE and presacral edema. NEUROLOGIC: Demonstrates no focal deficit. FINAL IMPRESSION: 1. Acute on chronic decompensated systolic heart failure with cardorenal syndrome. 2. 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 3. Paroxysmal supraventricular tachycardia, PSVT versus possible flutter. 4. Moderate to severe tricuspid regurgitation without evidence of pulmonary hypertension on recent resting 2D transthoracic echo. 5. Chronic kidney disease stage III. PLAN AND RECOMMENDATIONS: The patient's diuretics will be increased today, I have ordered Lasix 40 mg IV q. 12 hours. Consider addition of Zaroxolyn to aide diuresis pending clinical response. In light of her episode of sustained supraventricular tachycardia, I am adding digoxin, 250 mcg x1 now. We will follow closely due to renal dysfunction. Consider titration of Toprol further during hospitalization. Her Toprol was increased to 25 mg daily yesterday. Her blood pressures remain borderline hypotensive. We will continue sodium restriction as well as total fluid restriction of less than 1500 mL daily. We will continue to follow closely. Repeat magnesium level has also been ordered as well. MTDD
[2016-11-20] MEDS: FUROSEMIDE INJ 40 MG in SYRINGE 0 ML IV SCH (15:37)
[2016-11-21] VITALS (8 sets, daily range): BP systolic 88–131; BP diastolic 48–91; PULSE 80–95; TEMP 36.2–37; O2SAT 96–100
[2016-11-21 07:32] LABS: BUN/CREATININE RATIO 34.6 (10-20); CALCIUM 9.8 mg/dl (8.5-10.1); CREATININE 2.1 mg/dl (0.60-1.20); POTASSIUM 4.2 mmol/L (3.5-5.1)
[2016-11-21] MEDS: ALLOPURINOL 300 MG TAB PO SCH (07:44)
[2016-11-21] MEDS: ASPIRIN 81 MG ECTAB PO SCH (07:44)
[2016-11-21] MEDS: ATORVASTATIN 40 MG TAB PO SCH (07:45)
[2016-11-21] MEDS: ISOSORBIDE DINITRATE 5 MG TAB PO SCH ×2 (07:45→15:37)
[2016-11-21] MEDS: METOPROLOL SUCC 25MG EXT REL TAB PO SCH ×3 (07:47→22:13)
[2016-11-21] MEDS: SPIRONOLACTONE 25 MG TAB PO SCH (07:48)
[2016-11-21] MEDS: HEPARIN SOD 5000 UNIT/0.5 ML CARP SQ SCH ×2 (07:52→21:37)
[2016-11-21] MEDS: INSULIN ASPART 100 UNITS/ML 3 ML PEN SC SCH ×4 (07:52→21:00)
[2016-11-21] MEDS: FUROSEMIDE INJ 40 MG in SYRINGE 0 ML IV SCH (07:56)
--- NOTE | 2016-11-21 11:42 | Cardiology Follow-Up ---
Subjective General Date of Service: Nov 21, 2016. Pt evaluation today including: conversation w/ patient, physical exam, chart review, lab review, review of studies, review of inpatient medication list History of Present Illness The patient is a 86 year old female seen in follow-up. Patient's fluid balance remains positive with mild weight gain overnight. No significant diuresis despite titration of Lasix. Patient denies chest pain or unusual shortness of breath. Dyspnea on exertion unchanged. Continues to report orthopnea and difficulty sleeping. She would like to be discharged if possible. No recurrent supraventricular tachycardia overnight. Allergies Coded Allergies: Naproxen (Verified Allergy, Unknown, ., 11/17/16) Tramadol (Verified Allergy, Unknown, ., 11/17/16) Social History Hx Tobacco Use In Past Year?: No Hx Alcohol Use - Type And Amou: No Review of Systems Respiratory: + shortness of breath, + dyspnea on exertion, No cough, No sputum , No dyspnea at rest, No hemoptysis Cardiac: + orthopnea, + edema, No chest pain, No PND, No claudication, No palpitations Physical Exam Vital Signs Last Vital Signs Documentation Date Time Temp Pulse Resp B/P (MAP) Pulse Ox O2 Delivery O2 Flow Rate FiO2 11/21/16 10:37 36.8 80 17 99/66 (77) 96 Nasal Cannula 3.0 Physical Exam Constitutional: General Apperance: overweight Level of Distress: NAD Psychiatric: Mental Status: active & alert Orientation: to time, to place, to person Memory: recent memory normal, remote memory normal Head: normocephalic, atraumatic Eyes: Pupils: PERRLA Neck: pertinent finding (No overt JVD (examined in the bedside chair)) Lungs: Respiratory effort: no dyspnea Auscultation: no wheezing, no rales/crackles, no rhonchi, deminished air movement, decreased breath sounds Cardiovascular: Heart Auscultation: no rubs, II/ TONIA, gallop, irregular rate rhythm Peripheral Pulses: Radial Pulse: normal on the left, normal on the right Dorsalis Pedis Pulse: absent on the left, absent on the right Abdomen: Bowel Sounds: normal Inspection & Palpation: soft, non-distended, no masses Extremities: no varicosities, no clubbing, no ulcers, edema (2+ LE edema up to her waist. +presacral edema) Neurologic: Cranial Nerves: grossly intact Assessment and Plan Assessment and Plan FINAL IMPRESSION: 1. Acute on chronic decompensated biventricular systolic heart failure with cardiorenal syndrome and 2+ pitting lower extremity and presacral edema. Patient has not diuresed significantly despite titration of Lasix to 40 mg twice daily 2. 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 3. Paroxysmal supraventricular tachycardia, PSVT versus possible flutter. -No recurrence overnight 4. Moderate to severe tricuspid regurgitation without evidence of pulmonary hypertension on recent resting 2D transthoracic echo. 5. Chronic kidney disease stage III. PLAN AND RECOMMENDATIONS: Give 2.5 mg of oral Zaroxolyn then 80 mg of intravenous lasix. Lasix will be increased to 80 mg IV BID. Metoprolol will be increased to 25 mg twice daily. Follow daily weight, GFR, fluid balance, and electrolytes closely. Laboratory Results Last 24 Hours Test 11/20/16 16:15 11/20/16 19:35 11/21/16 06:42 11/21/16 06:51 Bedside Glucose 124 mg/dl 157 mg/dl 119 mg/dl Sodium Level 136 mmol/L Potassium Level 4.2 mmol/L Chloride Level 99 mmol/L Carbon Dioxide Level 26 mmol/L Anion Gap 11.0 mmol/L Blood Urea Nitrogen 73 mg/dl Creatinine 2.10 mg/dl Est Creatinine Clear Calc Drug Dose 23.4 ml/min Estimated GFR () 23.9 Estimated GFR (Non- 20.6 BUN/Creatinine Ratio 34.6 Random Glucose 116 mg/dl Calcium Level 9.8 mg/dl
[2016-11-21] MEDS ORDERED: METOLAZONE 2.5 MG TAB PO ONE (12:45)
[2016-11-21] MEDS: FUROSEMIDE INJ 80 MG in SYRINGE 0 ML IV ONE ×2 (13:50→13:54)
[2016-11-21] MEDS ORDERED: NURSING VERBAL MED ORDER ONE (18:15)
--- NOTE | 2016-11-21 18:21 | Progress Note ---
Medicine Progress Note Date & Time of Visit: Nov 21, 2016 at 18:19. Subjective sitting on bedside chair comfortable states she feels fine denies dyspnea, orthopnea no leg pain no chest pain, dyspnea, dizziness no other symptoms Objective Last 8 Hrs Date Time Temp Pulse Resp B/P (MAP) Pulse Ox O2 Delivery O2 Flow Rate FiO2 11/21/16 17:52 82 94/62 (73) 11/21/16 16:09 36.2 81 18 104/70 (81) 99 Nasal Cannula 3.0 11/21/16 16:00 Nasal Cannula 3.0 11/21/16 13:51 88/48 (61) 11/21/16 12:00 Nasal Cannula 3.0 11/21/16 10:37 36.8 80 17 99/66 (77) 96 Nasal Cannula 3.0 Physical Exam: General- oriented x 3, not in distress, speaks in sentences with no effort Neck- no JVD Lungs- mild rales bilateral bases Heart- regular rhythm; (+) grade 4/6 LPSB murmur, normal rate Abdomen- normal bowel sounds, soft, nontender, no masses Extremities- grade 1 lower leg edema, no calf tenderness; peripheral pulses intact Neuro- alert, oriented x 3; no gross focal deficits Skin- warm & dry Laboratory Results: Last 24 Hours Test 11/20/16 19:35 11/21/16 06:42 11/21/16 06:51 11/21/16 11:09 Bedside Glucose 157 mg/dl 119 mg/dl 141 mg/dl Sodium Level 136 mmol/L Potassium Level 4.2 mmol/L Chloride Level 99 mmol/L Carbon Dioxide Level 26 mmol/L Anion Gap 11.0 mmol/L Blood Urea Nitrogen 73 mg/dl Creatinine 2.10 mg/dl Est Creatinine Clear Calc Drug Dose 23.4 ml/min Estimated GFR () 23.9 Estimated GFR (Non- 20.6 BUN/Creatinine Ratio 34.6 Random Glucose 116 mg/dl Calcium Level 9.8 mg/dl Test 11/21/16 16:32 Bedside Glucose 111 mg/dl Assessment & Plan ACUTE ON CHRONIC SYSTOLIC CHF SONIA ON CKD STAGE III - Cardiology input noted - Lasix IV BID + Spironolactone,Metoprolol, Imdur ordered -- Lasix increased to 80mg BID IV, Zaroxylyn added Metoprolol increased further diuretic recommendations per Cardiology - diuresing slowly - monitor response, crea EPISODE OF PSVT - WIDE COMPLEX, HR 130S - Digoxin added ELEVATED TROPONIN - likely demand ischemia due to acute CHF - no reports of chest pain HYPOKALEMIA, HYPOMAGNESEMIA - improved, monitor DM - hgb a1c 5.9 08/2016 - hold metformin and utilize SSI while hospitalized DVT PROPHYLAXIS - SQ Heparin CODE STATUS - Patient is a DNR DISPO pending lives at home will need PT/OT, 2 step exercise test if not going to Rehab/SNF, will need home health services Current Inpatient Medications: Current Inpatient Medications Medications (Trade) Dose Ordered Sig/Jeri Route Start Time Stop Time Status Last Admin Dose Admin Acetaminophen (Tylenol Tab) 650 mg Q4H PRN PO 11/17/16 19:00 12/17/16 18:59 Promethazine HCl 12.5 mg/Sodium Chloride 50.5 ml @ 204 mls/hr Q6H PRN IV 11/17/16 19:15 12/17/16 19:14 Allopurinol (Zyloprim Tab) 300 mg DAILY PO 11/18/16 09:00 12/18/16 08:59 11/21/16 07:44 300 MG Aspirin (Ecotrin Tab) 81 mg DAILY PO 11/18/16 09:00 12/18/16 08:59 11/21/16 07:44 81 MG Atorvastatin Calcium (Lipitor Tab) 40 mg DAILY PO 11/18/16 09:00 12/18/16 08:59 11/21/16 07:45 40 MG Lorazepam (Ativan Tab) 0.5 mg HS PRN PO 11/17/16 20:00 12/17/16 19:59 Insulin Aspart (novoLOG ASPART) SLIDING SCALE If C... ACHS SC 11/17/16 21:00 12/17/16 20:59 11/21/16 07:52 2 UNITS Glucose (Glucose 40% Gel) 15-30 GRAMS 15 GRAMS... UD PRN PO 11/17/16 20:00 12/17/16 19:59 Glucose (Glucose Chew Tab) 4-8 Tablets 4 Tabl... UD PRN PO 11/17/16 20:00 12/17/16 19:59 Dextrose (Dextrose 50% 50ML Syringe) 25-50ML OF 50% DW IV FOR... UD PRN IV 11/17/16 20:00 12/17/16 19:59 Glucagon (Glucagon Inj) 1 mg UD PRN SQ 11/17/16 20:00 12/17/16 19:59 Heparin Sodium (Porcine) (Heparin Sq 5000 Unit/0.5ml) 5,000 unit Q12 SQ 11/18/16 21:00 12/17/16 21:59 11/21/16 07:52 5,000 UNIT Spironolactone (Aldactone Tab) 12.5 mg QAM PO 11/19/16 09:00 12/19/16 08:59 11/21/16 07:48 12.5 MG Isosorbide Dinitrate (Isordil Tab) 5 mg BID17 PO 11/19/16 17:00 12/19/16 16:59 11/21/16 07:45 5 MG Furosemide 80 mg/ Syringe 8 ml @ 4 mls/min BID17 IV 11/21/16 17:00 12/21/16 16:59 Metoprolol Succinate (Toprol Xl Tab) 25 mg BID PO 11/21/16 21:00 12/21/16 20:59 Miscellaneous Information (Nursing Verbal Med Order) 1 ea ONE ONCE N/A 11/21/16 18:15 11/21/16 18:16 UNV
[2016-11-21] MEDS: FUROSEMIDE INJ 80 MG in SYRINGE 0 ML IV SCH (22:13)
[2016-11-22] VITALS (8 sets, daily range): BP systolic 90–115; BP diastolic 53–86; PULSE 73–88; TEMP 36.3–36.9; O2SAT 97–100
[2016-11-22 07:48] LABS: BUN/CREATININE RATIO 35.7 (10-20); CALCIUM 9.5 mg/dl (8.5-10.1); CREATININE 2.1 mg/dl (0.60-1.20); POTASSIUM 3.6 mmol/L (3.5-5.1)
[2016-11-22] MEDS: INSULIN ASPART 100 UNITS/ML 3 ML PEN SC SCH ×4 (08:27→20:28)
[2016-11-22] MEDS: ALLOPURINOL 300 MG TAB PO SCH (08:53)
[2016-11-22] MEDS: METOPROLOL SUCC 25MG EXT REL TAB PO SCH ×2 (08:54→20:28)
[2016-11-22] MEDS: ISOSORBIDE DINITRATE 5 MG TAB PO SCH ×2 (08:54→17:00)
[2016-11-22] MEDS: ATORVASTATIN 40 MG TAB PO SCH (08:54)
[2016-11-22] MEDS: ASPIRIN 81 MG ECTAB PO SCH (08:54)
[2016-11-22] MEDS: METOLAZONE 2.5 MG TAB PO SCH (08:55)
[2016-11-22] MEDS: SPIRONOLACTONE 25 MG TAB PO SCH (08:55)
[2016-11-22] MEDS: HEPARIN SOD 5000 UNIT/0.5 ML CARP SQ SCH ×2 (08:56→20:37)
--- NOTE | 2016-11-22 09:31 | Cardiology Follow-Up ---
Subjective General Date of Service: Nov 22, 2016. Pt evaluation today including: conversation w/ patient, physical exam, chart review, lab review, review of studies, review of inpatient medication list History of Present Illness The patient is a 86 year old female seen in follow-up. Diuresis improved with titration of Lasix and addition of a.m. Zaroxolyn. Patient resting comfortably. Edema has not significantly changed. Confusion noted overnight. No recurrent tachycardia. Allergies Coded Allergies: Naproxen (Verified Allergy, Unknown, ., 11/17/16) Tramadol (Verified Allergy, Unknown, ., 11/17/16) Social History Hx Tobacco Use In Past Year?: No Hx Alcohol Use - Type And Amou: No Review of Systems Respiratory: + cough, + shortness of breath, + dyspnea on exertion, No sputum, No wheezing, No dyspnea at rest, No hemoptysis Cardiac: + orthopnea, + edema, No chest pain, No PND, No claudication, No palpitations Physical Exam Vital Signs Last Vital Signs Documentation Date Time Temp Pulse Resp B/P (MAP) Pulse Ox O2 Delivery O2 Flow Rate FiO2 11/22/16 08:00 36.3 73 16 105/67 (80) 97 Nasal Cannula 3.0 Physical Exam Constitutional: General Apperance: overweight Level of Distress: NAD Psychiatric: Mental Status: active & alert Orientation: to time, to place, to person Memory: recent memory normal, remote memory normal Head: normocephalic, atraumatic Eyes: Pupils: PERRLA Neck: pertinent finding (No overt JVD (examined in the bedside chair)) Lungs: Respiratory effort: no dyspnea Auscultation: no wheezing, no rales/crackles, no rhonchi, decreased breath sounds Cardiovascular: Heart Auscultation: no rubs, II/ TONIA, gallop, irregular rate rhythm Peripheral Pulses: Radial Pulse: normal on the left, normal on the right Dorsalis Pedis Pulse: absent on the left, absent on the right Abdomen: Bowel Sounds: normal Inspection & Palpation: soft, non-distended, no masses Extremities: no varicosities, no clubbing, no ulcers, edema (2+ LE edema up to her waist. +presacral edema) Neurologic: Cranial Nerves: grossly intact Assessment and Plan Assessment and Plan FINAL IMPRESSION: 1. Acute on chronic decompensated biventricular systolic heart failure with cardiorenal syndrome and 2+ pitting lower extremity and presacral edema. - urine output improved with titration of lasix plus addition of Zaroxolyn. 2. 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 3. Paroxysmal supraventricular tachycardia, PSVT versus possible flutter. -No recurrence overnight 4. Moderate to severe tricuspid regurgitation without evidence of pulmonary hypertension on recent resting 2D transthoracic echo. 5. Chronic kidney disease stage III. PLAN AND RECOMMENDATIONS: Give 2.5 mg of oral Zaroxolyn 30 minutes prior to a.m. dose intravenous lasix. Continue Lasix 80 mg IV BID plus aldactone. Continue Toprol-XL 25 mg twice daily. Follow daily weight, GFR, fluid balance, and electrolytes closely. Laboratory Results Last 24 Hours Test 11/21/16 11:09 11/21/16 16:32 11/21/16 21:31 11/22/16 06:26 Bedside Glucose 141 mg/dl 111 mg/dl 126 mg/dl Sodium Level 137 mmol/L Potassium Level 3.6 mmol/L Chloride Level 99 mmol/L Carbon Dioxide Level 25 mmol/L Anion Gap 13.0 mmol/L Blood Urea Nitrogen 75 mg/dl Creatinine 2.10 mg/dl Est Creatinine Clear Calc Drug Dose 23.4 ml/min Estimated GFR () 23.9 Estimated GFR (Non- 20.6 BUN/Creatinine Ratio 35.7 Random Glucose 108 mg/dl Calcium Level 9.5 mg/dl
[2016-11-22] MEDS: FUROSEMIDE INJ 80 MG in SYRINGE 0 ML IV SCH ×2 (10:13→17:00)
[2016-11-22] MEDS: LORAZEPAM 0.5 MG TAB PO PRN (20:38)
--- NOTE | 2016-11-22 20:44 | Progress Note ---
Medicine Progress Note Date & Time of Visit: Nov 22, 2016 at 20:42. Subjective seen sitting at the bed, RN at bedside, patient was upset states she really wants to go home tomorrow occasional gets confused denies shortness of breath, chest pain, dizziness no others symptoms Objective Last 8 Hrs Date Time Temp Pulse Resp B/P (MAP) Pulse Ox O2 Delivery O2 Flow Rate FiO2 11/22/16 19:34 36.9 80 18 99/63 (75) 98 Nasal Cannula 3.0 11/22/16 16:00 Nasal Cannula 2.0 11/22/16 15:40 36.4 76 20 91/53 (66) 98 Nasal Cannula 2.0 11/22/16 13:03 36.7 80 22 114/69 (84) 100 Room Air Physical Exam: General- oriented x 3, not in distress, speaks in sentences with no effort Neck- no JVD Lungs- mild rales BL bases Heart- regular rhythm; (+) grade 4/6 LPSB murmur, normal rate Abdomen- normal bowel sounds, soft, nontender, no masses Extremities- grade 1 lower leg edema, no calf tenderness; peripheral pulses intact Neuro- alert, oriented x 3; no gross focal deficits Skin- warm & dry Laboratory Results: Last 24 Hours Test 11/21/16 21:31 11/22/16 06:26 11/22/16 11:03 11/22/16 16:09 Bedside Glucose 126 mg/dl 136 mg/dl 112 mg/dl Sodium Level 137 mmol/L Potassium Level 3.6 mmol/L Chloride Level 99 mmol/L Carbon Dioxide Level 25 mmol/L Anion Gap 13.0 mmol/L Blood Urea Nitrogen 75 mg/dl Creatinine 2.10 mg/dl Est Creatinine Clear Calc Drug Dose 23.4 ml/min Estimated GFR () 23.9 Estimated GFR (Non- 20.6 BUN/Creatinine Ratio 35.7 Random Glucose 108 mg/dl Calcium Level 9.5 mg/dl Assessment & Plan ACUTE ON CHRONIC SYSTOLIC CHF SONIA ON CKD STAGE III - Cardiology input noted - Lasix IV BID + Spironolactone, Metoprolol, Imdur ordered -- Lasix increased to 80mg BID IV, Zaroxylyn added Metoprolol increased -- diureses improving further diuretic recommendations per Cardiology - monitor response, crea EPISODE OF PSVT - WIDE COMPLEX, HR 130S - Digoxin added - resolved CONFUSION - possible hospital delirium - usual Trazodone at HS resumed has PRN Ativan at HS ELEVATED TROPONIN - likely demand ischemia due to acute CHF - no reports of chest pain HYPOKALEMIA, HYPOMAGNESEMIA - improved, monitor DM - hgb a1c 5.9 08/2016 - hold metformin and utilize SSI while hospitalized DVT PROPHYLAXIS - SQ Heparin CODE STATUS - Patient is a DNR DISPO pending lives at home will need PT/OT, 2 step exercise test if not going to Rehab/SNF, will need home health services Current Inpatient Medications: Current Inpatient Medications Medications (Trade) Dose Ordered Sig/Jeri Route Start Time Stop Time Status Last Admin Dose Admin Acetaminophen (Tylenol Tab) 650 mg Q4H PRN PO 11/17/16 19:00 12/17/16 18:59 Promethazine HCl 12.5 mg/Sodium Chloride 50.5 ml @ 204 mls/hr Q6H PRN IV 11/17/16 19:15 12/17/16 19:14 Allopurinol (Zyloprim Tab) 300 mg DAILY PO 11/18/16 09:00 12/18/16 08:59 11/22/16 08:53 300 MG Aspirin (Ecotrin Tab) 81 mg DAILY PO 11/18/16 09:00 12/18/16 08:59 11/22/16 08:54 81 MG Atorvastatin Calcium (Lipitor Tab) 40 mg DAILY PO 11/18/16 09:00 12/18/16 08:59 11/22/16 08:54 40 MG Lorazepam (Ativan Tab) 0.5 mg HS PRN PO 11/17/16 20:00 12/17/16 19:59 11/22/16 20:38 0.5 MG Insulin Aspart (novoLOG ASPART) SLIDING SCALE If C... ACHS SC 11/17/16 21:00 12/17/16 20:59 11/22/16 16:15 3 UNITS Glucose (Glucose 40% Gel) 15-30 GRAMS 15 GRAMS... UD PRN PO 11/17/16 20:00 12/17/16 19:59 Glucose (Glucose Chew Tab) 4-8 Tablets 4 Tabl... UD PRN PO 11/17/16 20:00 12/17/16 19:59 Dextrose (Dextrose 50% 50ML Syringe) 25-50ML OF 50% DW IV FOR... UD PRN IV 11/17/16 20:00 12/17/16 19:59 Glucagon (Glucagon Inj) 1 mg UD PRN SQ 11/17/16 20:00 12/17/16 19:59 Heparin Sodium (Porcine) (Heparin Sq 5000 Unit/0.5ml) 5,000 unit Q12 SQ 11/18/16 21:00 12/17/16 21:59 11/22/16 20:37 5,000 UNIT Spironolactone (Aldactone Tab) 12.5 mg QAM PO 11/19/16 09:00 12/19/16 08:59 11/22/16 08:55 12.5 MG Isosorbide Dinitrate (Isordil Tab) 5 mg BID17 PO 11/19/16 17:00 12/19/16 16:59 11/22/16 17:00 5 MG Furosemide 80 mg/ Syringe 8 ml @ 4 mls/min BID17 IV 11/21/16 17:00 12/21/16 16:59 11/22/16 17:00 4 MLS/MIN Metoprolol Succinate (Toprol Xl Tab) 25 mg BID PO 11/21/16 21:00 12/21/16 20:59 11/22/16 20:28 25 MG Metolazone (Zaroxolyn Tab) 2.5 mg DAILY@0830 PO 11/22/16 08:30 12/22/16 08:29 11/22/16 08:55 2.5 MG Trazodone HCl (Desyrel Tab) 100 mg HS PO 11/22/16 21:00 12/22/16 20:59
[2016-11-22] MEDS: TRAZODONE HCL 50 MG TAB PO SCH (21:00)
[2016-11-23] VITALS (8 sets, daily range): BP systolic 92–171; BP diastolic 52–72; PULSE 60–79; TEMP 36.3–36.5; O2SAT 90–99
[2016-11-23 05:39] LABS: HEMATOCRIT 35.3 % (37-47); MEAN CELL VOLUME 89.4 fL (80-100); MEAN CORPUSCULAR HEMOGLOBIN 27.8 pg (25-34); MEAN CORPUSCULAR HGB CONC 31.2 g/dl (32-36); MEAN PLATELET VOLUME 10.9 fL (7.4-10.4); PLATELET COUNT 159 K/uL (130-400); RED BLOOD COUNT 3.95 M/uL (4.2-5.4); WHITE BLOOD COUNT 6.34 K/uL (4.8-10.8)
[2016-11-23 06:09] LABS: BUN/CREATININE RATIO 42.2 (10-20); CALCIUM 9.3 mg/dl (8.5-10.1); CREATININE 1.9 mg/dl (0.60-1.20); POTASSIUM 3.2 mmol/L (3.5-5.1)
--- NOTE | 2016-11-23 08:50 | Progress Note ---
Medicine Progress Note Date & Time of Visit: Nov 23, 2016 at 08:42. Subjective called by RN as patient was very agitated towards them, would not answer questions or allow VS to be taken on exam, patient sleeping, not in distress tried to put back oxygen on, as O2 sats 87-90%, patient would push it away aggressively explained she needs to wear it so she does not get short of breath, states go away when asked how she is feeling, patient was yelling "go away" repeatedly not in distress, speaks in sentences with no effort does not report any symptoms Objective Last 8 Hrs Date Time Temp Pulse Resp B/P (MAP) Pulse Ox O2 Delivery O2 Flow Rate FiO2 11/23/16 04:00 Nasal Cannula 3.0 11/23/16 03:37 36.4 78 23 97/64 (75) 92 Nasal Cannula 3.0 Physical Exam: patient did not allow me to examine her at this time, will re-evaluated General- not in distress, speaks in sentences with no effort, no accessory muscle use, orientation not able to be assessed Laboratory Results: Last 24 Hours Test 11/22/16 11:03 11/22/16 16:09 11/22/16 20:26 11/23/16 05:17 Bedside Glucose 136 mg/dl 112 mg/dl 138 mg/dl White Blood Count 6.34 K/uL Red Blood Count 3.95 M/uL Hemoglobin 11.0 g/dL Hematocrit 35.3 % Mean Corpuscular Volume 89.4 fL Mean Corpuscular Hemoglobin 27.8 pg Mean Corpuscular Hemoglobin Concent 31.2 g/dl RDW Standard Deviation 59.6 fL RDW Coefficient of Variation 18.7 % Platelet Count 159 K/uL Mean Platelet Volume 10.9 fL Sodium Level 138 mmol/L Potassium Level 3.2 mmol/L Chloride Level 99 mmol/L Carbon Dioxide Level 27 mmol/L Anion Gap 12.0 mmol/L Blood Urea Nitrogen 80 mg/dl Creatinine 1.90 mg/dl Est Creatinine Clear Calc Drug Dose 25.9 ml/min Estimated GFR () 27.0 Estimated GFR (Non- 23.3 BUN/Creatinine Ratio 42.2 Random Glucose 114 mg/dl Calcium Level 9.3 mg/dl Test 11/23/16 06:34 Bedside Glucose 121 mg/dl Assessment & Plan ACUTE ON CHRONIC SYSTOLIC CHF SONIA ON CKD STAGE III - Cardiology input noted - Lasix IV BID + Spironolactone, Metoprolol, Imdur ordered -- Lasix increased to 80mg BID IV + Metolazone Metoprolol increased -- diuresing better -1600 so far further diuretic recommendations per Cardiology - monitor response, crea EPISODE OF PSVT - WIDE COMPLEX, HR 130S - Digoxin added - resolved CONFUSION - possible hospital delirium possible Trazodone withdrawal? has not received x 5 days, resumed last night will order Psych consult possible Ativan withdrawal? has not received x 5 days, received last night r/o UTI, Infection check UA, Urinalysis - discussed with RN monitor pulse ox closely ELEVATED TROPONIN - likely demand ischemia due to acute CHF - no reports of chest pain HYPOKALEMIA, HYPOMAGNESEMIA - replace DM - hgb a1c 5.9 08/2016 - hold metformin and utilize SSI while hospitalized DVT PROPHYLAXIS - SQ Heparin CODE STATUS - Patient is a DNR DISPO pending lives at home will need PT/OT, 2 step exercise test if not going to Rehab/SNF, will need home health services Current Inpatient Medications: Current Inpatient Medications Medications (Trade) Dose Ordered Sig/Jeri Route Start Time Stop Time Status Last Admin Dose Admin Acetaminophen (Tylenol Tab) 650 mg Q4H PRN PO 11/17/16 19:00 12/17/16 18:59 Promethazine HCl 12.5 mg/Sodium Chloride 50.5 ml @ 204 mls/hr Q6H PRN IV 11/17/16 19:15 12/17/16 19:14 Allopurinol (Zyloprim Tab) 300 mg DAILY PO 11/18/16 09:00 12/18/16 08:59 11/22/16 08:53 300 MG Aspirin (Ecotrin Tab) 81 mg DAILY PO 11/18/16 09:00 12/18/16 08:59 11/22/16 08:54 81 MG Atorvastatin Calcium (Lipitor Tab) 40 mg DAILY PO 11/18/16 09:00 12/18/16 08:59 11/22/16 08:54 40 MG Lorazepam (Ativan Tab) 0.5 mg HS PRN PO 11/17/16 20:00 12/17/16 19:59 11/22/16 20:38 0.5 MG Insulin Aspart (novoLOG ASPART) SLIDING SCALE If C... ACHS SC 11/17/16 21:00 12/17/16 20:59 11/22/16 16:15 3 UNITS Glucose (Glucose 40% Gel) 15-30 GRAMS 15 GRAMS... UD PRN PO 11/17/16 20:00 12/17/16 19:59 Glucose (Glucose Chew Tab) 4-8 Tablets 4 Tabl... UD PRN PO 11/17/16 20:00 12/17/16 19:59 Dextrose (Dextrose 50% 50ML Syringe) 25-50ML OF 50% DW IV FOR... UD PRN IV 11/17/16 20:00 12/17/16 19:59 Glucagon (Glucagon Inj) 1 mg UD PRN SQ 11/17/16 20:00 12/17/16 19:59 Heparin Sodium (Porcine) (Heparin Sq 5000 Unit/0.5ml) 5,000 unit Q12 SQ 11/18/16 21:00 12/17/16 21:59 11/22/16 20:37 5,000 UNIT Spironolactone (Aldactone Tab) 12.5 mg QAM PO 11/19/16 09:00 12/19/16 08:59 11/22/16 08:55 12.5 MG Isosorbide Dinitrate (Isordil Tab) 5 mg BID17 PO 11/19/16 17:00 12/19/16 16:59 11/22/16 17:00 5 MG Furosemide 80 mg/ Syringe 8 ml @ 4 mls/min BID17 IV 11/21/16 17:00 12/21/16 16:59 11/22/16 17:00 4 MLS/MIN Metoprolol Succinate (Toprol Xl Tab) 25 mg BID PO 11/21/16 21:00 12/21/16 20:59 11/22/16 20:28 25 MG Metolazone (Zaroxolyn Tab) 2.5 mg DAILY@0830 PO 11/22/16 08:30 12/22/16 08:29 11/22/16 08:55 2.5 MG Trazodone HCl (Desyrel Tab) 100 mg HS PO 11/22/16 21:00 12/22/16 20:59 11/22/16 21:00 100 MG Metolazone (Zaroxolyn Tab) 2.5 mg NOW ONCE PO 11/23/16 08:30 11/23/16 08:31 UNV Potassium Chloride (Klor-Con Tab) 20 meq QAM PO 11/23/16 09:00 12/23/16 08:59 UNV Potassium Chloride (Klor-Con Tab) 20 meq 0829 ONCE PO 11/23/16 08:29 11/23/16 08:30 UNV
[2016-11-23] MEDS: ISOSORBIDE DINITRATE 5 MG TAB PO SCH ×3 (09:00→17:32)
[2016-11-23] MEDS: ALLOPURINOL 300 MG TAB PO SCH ×2 (09:00→11:04)
[2016-11-23] MEDS: METOPROLOL SUCC 25MG EXT REL TAB PO SCH ×3 (09:00→20:55)
[2016-11-23] MEDS: ASPIRIN 81 MG ECTAB PO SCH ×2 (09:00→11:05)
[2016-11-23] MEDS: SPIRONOLACTONE 25 MG TAB PO SCH ×2 (09:00→11:06)
[2016-11-23] MEDS: ATORVASTATIN 40 MG TAB PO SCH ×2 (09:00→11:05)
[2016-11-23] MEDS: INSULIN ASPART 100 UNITS/ML 3 ML PEN SC SCH ×4 (09:11→20:55)
[2016-11-23] MEDS: METOLAZONE 2.5 MG TAB PO SCH ×2 (09:12→11:07)
[2016-11-23] MEDS ORDERED: METOLAZONE 2.5 MG TAB PO ONE (09:15)
[2016-11-23] MEDS ORDERED: POTASSIUM CHLORIDE 20 MEQ TABCR PO ONE (09:15)
[2016-11-23 09:40] LABS: URINE APPEARANCE CLEAR (CLEAR); URINE BILIRUBIN NEG (NEG); URINE COLOR YELLOW; URINE EPITHELIAL CELL AUTO >30 /lpf (0-5); URINE NITRITE NEG (NEG); URINE PH 5.5 (4.5-7.5); URINE SPECIFIC GRAVITY 1.011 (1.000-1.030); UROBILINOGEN NEG (NEG)
[2016-11-23 09:43] LABS: MANUAL MICROSCOPIC REQUIRED? NO; REVIEW REQ? YES
[2016-11-23] MEDS: FUROSEMIDE INJ 80 MG in SYRINGE 0 ML IV SCH ×2 (09:55→17:33)
[2016-11-23] MEDS: HEPARIN SOD 5000 UNIT/0.5 ML CARP SQ SCH ×2 (09:56→20:55)
[2016-11-23] MEDS ORDERED: ROCEPHIN CONSULT PHARMACY PRN (10:58)
[2016-11-23] MEDS: CEFTRIAXONE SOD INJ 1 GM in DEXTROSE 5% ADD-VANTAGE 50ML 50 ML IV SCH (12:15)
[2016-11-23] MEDS ORDERED: NURSING VERBAL MED ORDER ONE (12:30)
--- NOTE | 2016-11-23 14:11 | Psychiatric Consultation ---
Consultation Date of Consultation Nov 23, 2016. Identifying Data 86-year-old woman who was admitted November 17 with acute on chronic systolic heart failure. We are consulted to evaluate anxiety and aggressive behaviors. Information is gathered from the electronic medical record, the patient and her daughter who was at the bedside, and all considered to be reliable. Chief Complaint "I don't know who to trust". History of Present Illness The patient is an 86-year-old woman, who resides at home with her daughter, who was brought to the emergency room on November 17 due to increasing edema and shortness of breath. Her condition has been improving but over the course of the last day or so has been becoming increasingly confused and combative. At the time I see the patient, she is complaining loudly that she wants to be out of bed. She is complaining that she doesn't know why multiple people are coming at her with needles and says "I don't know who to trust". The nurses are adjusting her position in bed and after she is settled comfortably, we resume our conversation. She begins by saying that she had been in the hospital and expected to see a lot of different people but thought that she was no longer in the hospital. She is aware that it is October 2016. She is able to accurately identify her daughter who was in the room. She admits that she feels confused and even remembers trying to call her several get days ago, now knowing that it was wrong but feeling at the time that was the right thing to do. She has become agitated, striking out against her nurses and refusing her oxygen. When we discuss these things, she is able to say she recognizes that she is confused. She remembers refusing her oxygen but felt that she did not need it when she was at rest in bed. Her daughter denies that she has seen her hallucinate and says that her mother has always been "ornery". The patient is described dressed because she wants to go home and feels that she was promised by the attending that he would be around to see her yesterday morning but did not arrive until after 9 PM last night. This upset her. She also gives other examples in which she was promised treatment, for example to get out of bed, which never happened has been nursing staff said they were busy. She admits that these things are disappointing and irritate her. She understands that she is in the hospital for treatment of her cardiac condition and can say that she has been told if she "takes it easy" in life that she will do all right. She was also told that they would discuss discharge this morning which has not yet happened. The patient says that her mood has been "pretty good". She is able to sleep well when she takes her medicines which include trazodone and Ativan. She is denying any current hallucinations, but acknowledging fearful confused thoughts that she doesn't know who to trust. She denies any previous psychiatric history. I ask her daughter whether there are any other concerns, whether she has seen her to hallucinate and the daughter says that she has not. Past Psychiatric History Current OP Treatment: no current treatment Prior OP Treatment: no prior treatment Prior Psych Hospitalizations: none Access to a Gun: No Suicide Attempts: No Past Medical/Surgical History (1) CKD (chronic kidney disease), stage III (2) DM type 2 (diabetes mellitus, type 2) (3) HTN (hypertension) (4) Systolic CHF (5) EVGENY (obstructive sleep apnea) (6) HLD (hyperlipidemia) Allergies Allergies: Coded Allergies: Naproxen (Verified Allergy, Unknown, ., 11/17/16) Tramadol (Verified Allergy, Unknown, ., 11/17/16) Home Medications Scheduled Allopurinol (Zyloprim), 300 MG PO DAILY Aspirin (Aspirin Ec), 81 MG PO DAILY Atorvastatin (Lipitor), 40 MG PO DAILY Fluticasone Propionate (Nasal) (Flonase Allergy Relief), 2 SPRAYS CLARISSE DAILY Furosemide (Lasix), 80 MG PO DAILY Metformin Hcl (Glucophage), 500 MG PO BID Trazodone Hcl (Trazodone), 2 TAB PO HS Scheduled PRN Lorazepam (Ativan), 0.5 MG PO HS PRN for Insomnia Alcohol Use Alcohol Use In Past 12 Months: No Personal History Lives in: [place] with her daughter Relationship History: (3 years ago) Examination Physical Examination As per Dr. Oneil Vital Signs Vital Signs Past 12 Hours Date Time Temp Pulse Resp B/P (MAP) Pulse Ox O2 Delivery O2 Flow Rate FiO2 11/23/16 12:00 Nasal Cannula 2.0 11/23/16 10:58 36.4 74 20 103/66 (78) 98 Nasal Cannula 2.0 11/23/16 08:00 90 Room Air 2.0 11/23/16 04:00 Nasal Cannula 3.0 11/23/16 03:37 36.4 78 23 97/64 (75) 92 Nasal Cannula 3.0 Laboratory Results Last 24 Hours Test 11/22/16 16:09 11/22/16 20:26 11/23/16 00:00 11/23/16 05:17 Bedside Glucose 112 mg/dl 138 mg/dl Urine Color YELLOW Urine Appearance CLEAR Urine pH 5.5 Urine Specific [place] 1.011 Urine Protein 1+ Urine Glucose (UA) NEG Urine Ketones NEG Urine Occult Blood 3+ Urine Nitrite NEG Urine Bilirubin NEG Urine Urobilinogen NEG Urine Leukocyte Esterase SMALL Urine WBC (Auto) 5-10 /hpf Urine RBC (Auto) >30 /hpf Urine Hyaline Casts (Auto) 5-10 /lpf Urine Epithelial Cells (Auto) >30 /lpf Urine Bacteria (Auto) NEG Urine Renal Epithelial Cells 0-5 /lpf Urine Yeast (Auto) BUD W/ HYPHAE White Blood Count 6.34 K/uL Red Blood Count 3.95 M/uL Hemoglobin 11.0 g/dL Hematocrit 35.3 % Mean Corpuscular Volume 89.4 fL Mean Corpuscular Hemoglobin 27.8 pg Mean Corpuscular Hemoglobin Concent 31.2 g/dl RDW Standard Deviation 59.6 fL RDW Coefficient of Variation 18.7 % Platelet Count 159 K/uL Mean Platelet Volume 10.9 fL Sodium Level 138 mmol/L Potassium Level 3.2 mmol/L Chloride Level 99 mmol/L Carbon Dioxide Level 27 mmol/L Anion Gap 12.0 mmol/L Blood Urea Nitrogen 80 mg/dl Creatinine 1.90 mg/dl Est Creatinine Clear Calc Drug Dose 25.9 ml/min Estimated GFR () 27.0 Estimated GFR (Non- 23.3 BUN/Creatinine Ratio 42.2 Random Glucose 114 mg/dl Calcium Level 9.3 mg/dl Test 11/23/16 06:34 11/23/16 11:15 Bedside Glucose 121 mg/dl 102 mg/dl Mental Examination During interview pt is: alert and oriented, cooperative Appearance: appropriately groomed Eye contact is: good Motor behavior is: psychomotor agitation (mild) Speech: normal in rate, rhythm & volume Affect: irritable Mood is: irritable Thought process: goal directed Thought content: paranoid Suicidal thought are: denied Homicidal thoughts are: denied Hallucinations: denies auditory, denies visual Cognition: attention grossly intact, language grossly intact Intelligence estimated to be: average Insight: fair Judgement: fair Impression / Recommendations Impression 86-year-old woman admitted with acute on chronic heart failure. We are consulted to evaluate agitation and anxiety. The patient is a very pleasant woman and admits that she is confused. She is oriented but remembers trying to phone her and can feeling confused about who to trust. Beyond this, she is aware why she is here and her sole purpose right now is to get home where she feels more comfortable, with her daughter. Her daughter is in the room, confirms her mother's presentation. I do not think that this delirium is in need of medications at this time as the patient is relatively easily reoriented and calmed when you're able to spend time with her. She is a woman who holds due to her word and finds frustration when those things do not happen. I talked with both patient and the daughter that if her confusion gets worse we may have medications that can be helpful, but at this time I think nursing interventions relative to her delirium, specifically reorientation, introducing yourself in your task with her, getting her out of bed when able will all be of benefit. There are multiple contributing factors to her delirium including her age, change in location, medical conditions, possible hypoxia. She takes trazodone and Ativan at bedtime and although this has helped her at home, I would encourage that we moved toward discontinuing the Ativan to reduce the possibility for confusion or falls in the future. If the patient becomes combative and ways that cannot be managed less intrusive measures, we could certainly consider low-dose when necessary of Seroquel. Inventory Assets Strengths: Lives with daughter Risk Factors Assessment : Yes /single/: Yes Higher / Fall in social status: No Access to guns: No Health problems: Yes Mental Health Diagnoses: No Substance use disorders: No Protective Factors Assessment Temple beliefs: Yes : No Responsible for young children: No Employed: No Stable relationships: Yes Supportive family: Yes Recommendations (1) Delirium 11/23 - No recommendations for medications at this time in deference to her age. - Recommend that nursing employed good delirium techniques including out of bed when possible, good day night cycles, frequent reorientation, etc. - Verbal redirection and reassurance. Orientation cues with each interaction. Fall precautions to include low bed. Consider need for 1-on-1 observation. Encourage regular visits from family and friends if medically appropriate. Lights on in day, windows open; opposite at night. Use of glasses, dentures and hearing aides. Avoid opiate analgesics where possible. Avoid anticholinergics and benzos Has been reviewed with Dr. Wandy Quinones
--- NOTE | 2016-11-23 14:23 | Cardiology Follow-Up ---
Subjective General Date of Service: Nov 23, 2016. Pt evaluation today including: conversation w/ patient, conversation w/ family , physical exam, chart review, lab review, review of studies, review of inpatient medication list History of Present Illness The patient is a 86 year old female seen in follow-up. Fluid balance -1600 mL overnight. Edema improving. She was able to sleep well lying supine. No orthopnea or PND. Creatinine trending downward. Allergies Coded Allergies: Naproxen (Verified Allergy, Unknown, ., 11/17/16) Tramadol (Verified Allergy, Unknown, ., 11/17/16) Social History Hx Tobacco Use In Past Year?: No Hx Alcohol Use - Type And Amou: No Review of Systems Respiratory: + dyspnea on exertion, No cough, No sputum, No wheezing, No shortness of breath, No dyspnea at rest, No hemoptysis Cardiac: + edema, No chest pain, No orthopnea, No PND, No claudication, No palpitations Physical Exam Vital Signs Last Vital Signs Documentation Date Time Temp Pulse Resp B/P (MAP) Pulse Ox O2 Delivery O2 Flow Rate FiO2 11/23/16 12:00 Nasal Cannula 2.0 11/23/16 10:58 36.4 74 20 103/66 (78) 98 Physical Exam Constitutional: General Apperance: overweight Level of Distress: NAD Psychiatric: Mental Status: active & alert Orientation: to time, to place, to person Memory: recent memory normal, remote memory normal Head: normocephalic, atraumatic Eyes: Pupils: PERRLA Neck: pertinent finding (No overt JVD (examined in the bedside chair)) Lungs: Respiratory effort: no dyspnea Auscultation: no wheezing, no rales/crackles, no rhonchi, decreased breath sounds Cardiovascular: Heart Auscultation: no rubs, II/ TONIA, gallop, irregular rate rhythm Peripheral Pulses: Radial Pulse: normal on the left, normal on the right Dorsalis Pedis Pulse: absent on the left, absent on the right Abdomen: Bowel Sounds: normal Inspection & Palpation: soft, non-distended, no masses Extremities: no varicosities, no clubbing, no ulcers, edema (2+ LE edema up to her waist. +presacral edema) Neurologic: Cranial Nerves: grossly intact Assessment and Plan Assessment and Plan FINAL IMPRESSION: 1. Acute on chronic decompensated biventricular systolic heart failure with cardiorenal syndrome and 2+ pitting lower extremity and presacral edema. - urine output improving with titration of lasix plus addition of Zaroxolyn. 2. 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 3. Paroxysmal supraventricular tachycardia, PSVT versus possible flutter. -No recurrence overnight 4. Moderate to severe tricuspid regurgitation without evidence of pulmonary hypertension on recent resting 2D transthoracic echo. 5. Chronic kidney disease stage III -Creatinine trending downward PLAN AND RECOMMENDATIONS: Continue Zaroxolyn 2.5 mg daily in the a.m. 30 minutes prior to intravenous dose of Lasix. Continue Lasix 80 mg IV BID plus aldactone. Continue Toprol-XL 25 mg twice daily. Follow daily weight, GFR, fluid balance, and electrolytes closely. Patient's medical condition and therapeutic goals discussed with her daughter at bedside. They understand patient requires inpatient care at this time for intravenous diuretic therapy and close monitoring. Laboratory Results Last 24 Hours Test 11/22/16 16:09 11/22/16 20:26 11/23/16 00:00 11/23/16 05:17 Bedside Glucose 112 mg/dl 138 mg/dl Urine Color YELLOW Urine Appearance CLEAR Urine pH 5.5 Urine Specific [place] 1.011 Urine Protein 1+ Urine Glucose (UA) NEG Urine Ketones NEG Urine Occult Blood 3+ Urine Nitrite NEG Urine Bilirubin NEG Urine Urobilinogen NEG Urine Leukocyte Esterase SMALL Urine WBC (Auto) 5-10 /hpf Urine RBC (Auto) >30 /hpf Urine Hyaline Casts (Auto) 5-10 /lpf Urine Epithelial Cells (Auto) >30 /lpf Urine Bacteria (Auto) NEG Urine Renal Epithelial Cells 0-5 /lpf Urine Yeast (Auto) BUD W/ HYPHAE White Blood Count 6.34 K/uL Red Blood Count 3.95 M/uL Hemoglobin 11.0 g/dL Hematocrit 35.3 % Mean Corpuscular Volume 89.4 fL Mean Corpuscular Hemoglobin 27.8 pg Mean Corpuscular Hemoglobin Concent 31.2 g/dl RDW Standard Deviation 59.6 fL RDW Coefficient of Variation 18.7 % Platelet Count 159 K/uL Mean Platelet Volume 10.9 fL Sodium Level 138 mmol/L Potassium Level 3.2 mmol/L Chloride Level 99 mmol/L Carbon Dioxide Level 27 mmol/L Anion Gap 12.0 mmol/L Blood Urea Nitrogen 80 mg/dl Creatinine 1.90 mg/dl Est Creatinine Clear Calc Drug Dose 25.9 ml/min Estimated GFR () 27.0 Estimated GFR (Non- 23.3 BUN/Creatinine Ratio 42.2 Random Glucose 114 mg/dl Calcium Level 9.3 mg/dl Test 11/23/16 06:34 11/23/16 11:15 Bedside Glucose 121 mg/dl 102 mg/dl
[2016-11-23] MEDS: TRAZODONE HCL 50 MG TAB PO SCH (21:42)
[2016-11-24] VITALS (8 sets, daily range): BP systolic 92–119; BP diastolic 53–86; PULSE 65–76; TEMP 36–36.8; O2SAT 92–99
[2016-11-24] MEDS: INSULIN ASPART 100 UNITS/ML 3 ML PEN SC SCH ×4 (07:00→20:17)
[2016-11-24 07:01] LABS: BUN/CREATININE RATIO 38.2 (10-20); CALCIUM 9.2 mg/dl (8.5-10.1); CREATININE 2.1 mg/dl (0.60-1.20); POTASSIUM 3.2 mmol/L (3.5-5.1)
[2016-11-24] MEDS: FUROSEMIDE INJ 80 MG in SYRINGE 0 ML IV SCH ×2 (08:31→16:37)
[2016-11-24] MEDS: METOLAZONE 2.5 MG TAB PO SCH (08:32)
[2016-11-24] MEDS: SPIRONOLACTONE 25 MG TAB PO SCH (08:32)
[2016-11-24] MEDS: ATORVASTATIN 40 MG TAB PO SCH (08:33)
[2016-11-24] MEDS: ASPIRIN 81 MG ECTAB PO SCH (08:33)
[2016-11-24] MEDS: ALLOPURINOL 300 MG TAB PO SCH (08:33)
[2016-11-24] MEDS: ISOSORBIDE DINITRATE 5 MG TAB PO SCH ×2 (08:36→16:37)
[2016-11-24] MEDS: METOPROLOL SUCC 25MG EXT REL TAB PO SCH ×2 (08:37→20:17)
[2016-11-24] MEDS: HEPARIN SOD 5000 UNIT/0.5 ML CARP SQ SCH ×2 (08:39→20:22)
[2016-11-24] MEDS ORDERED: POTASSIUM CHLORIDE 20 MEQ TABCR PO SCH (09:00)
[2016-11-24] MEDS: POTASSIUM CHLORIDE 20 MEQ TABCR PO SCH (11:02)
[2016-11-24] MEDS: CEFTRIAXONE SOD INJ 1 GM in DEXTROSE 5% ADD-VANTAGE 50ML 50 ML IV SCH (11:03)
--- NOTE | 2016-11-24 12:00 | Progress Note ---
Subjective Date of Service: Nov 24, 2016. Subjective Pt evaluation today including: conversation w/ patient, physical exam, lab review, review of studies, review of inpatient medication list Saw/examined the patient in room 221 She is seated in a chair States she's doing well; knows she has more fluid in her legs that need to come off She is okay with staying in the hospital while getting diuresed Review of Systems Constitutional: No fever, No chills, No weakness Respiratory: + cough, + shortness of breath, + dyspnea on exertion, + dyspnea at rest, No sputum, No wheezing, No hemoptysis Cardiac: + edema, No chest pain, No palpitations Abdomen: No pain, No nausea, No vomiting, No diarrhea Medications Current Inpatient Medications Medications (Trade) Dose Ordered Sig/Jeri Route Start Time Stop Time Status Last Admin Dose Admin Acetaminophen (Tylenol Tab) 650 mg Q4H PRN PO 11/17/16 19:00 12/17/16 18:59 Promethazine HCl 12.5 mg/Sodium Chloride 50.5 ml @ 204 mls/hr Q6H PRN IV 11/17/16 19:15 12/17/16 19:14 Allopurinol (Zyloprim Tab) 300 mg DAILY PO 11/18/16 09:00 12/18/16 08:59 11/24/16 08:33 300 MG Aspirin (Ecotrin Tab) 81 mg DAILY PO 11/18/16 09:00 12/18/16 08:59 11/24/16 08:33 81 MG Atorvastatin Calcium (Lipitor Tab) 40 mg DAILY PO 11/18/16 09:00 12/18/16 08:59 11/24/16 08:33 40 MG Lorazepam (Ativan Tab) 0.5 mg HS PRN PO 11/17/16 20:00 12/17/16 19:59 11/22/16 20:38 0.5 MG Insulin Aspart (novoLOG ASPART) SLIDING SCALE If C... ACHS SC 11/17/16 21:00 12/17/16 20:59 11/22/16 16:15 3 UNITS Glucose (Glucose 40% Gel) 15-30 GRAMS 15 GRAMS... UD PRN PO 11/17/16 20:00 12/17/16 19:59 Glucose (Glucose Chew Tab) 4-8 Tablets 4 Tabl... UD PRN PO 11/17/16 20:00 12/17/16 19:59 Dextrose (Dextrose 50% 50ML Syringe) 25-50ML OF 50% DW IV FOR... UD PRN IV 11/17/16 20:00 12/17/16 19:59 Glucagon (Glucagon Inj) 1 mg UD PRN SQ 11/17/16 20:00 12/17/16 19:59 Heparin Sodium (Porcine) (Heparin Sq 5000 Unit/0.5ml) 5,000 unit Q12 SQ 11/18/16 21:00 12/17/16 21:59 11/24/16 08:39 5,000 UNIT Spironolactone (Aldactone Tab) 12.5 mg QAM PO 11/19/16 09:00 12/19/16 08:59 11/24/16 08:32 12.5 MG Isosorbide Dinitrate (Isordil Tab) 5 mg BID17 PO 11/19/16 17:00 12/19/16 16:59 11/24/16 08:36 5 MG Furosemide 80 mg/ Syringe 8 ml @ 4 mls/min BID17 IV 11/21/16 17:00 12/21/16 16:59 11/24/16 08:31 4 MLS/MIN Metoprolol Succinate (Toprol Xl Tab) 25 mg BID PO 11/21/16 21:00 12/21/16 20:59 11/24/16 08:37 25 MG Metolazone (Zaroxolyn Tab) 2.5 mg DAILY@0830 PO 11/22/16 08:30 12/22/16 08:29 11/24/16 08:32 2.5 MG Trazodone HCl (Desyrel Tab) 100 mg HS PO 11/22/16 21:00 12/22/16 20:59 11/23/16 21:42 100 MG Miscellaneous Information (Pharmacy Consult) 1 ea UD PRN N/A 11/23/16 10:58 12/23/16 10:57 Ceftriaxone Sodium 1 gm/ Dextrose 50 ml @ 120 mls/hr Q24H IV 11/23/16 12:00 12/03/16 11:59 11/24/16 11:03 120 MLS/HR Potassium Chloride (Klor-Con Tab) 40 meq QAM PO 11/24/16 10:00 12/24/16 09:59 11/24/16 11:02 40 MEQ Objective Vital Signs Date Time Temp Pulse Resp B/P (MAP) Pulse Ox O2 Delivery O2 Flow Rate FiO2 11/24/16 08:30 65 119/86 (97) 11/24/16 08:00 Nasal Cannula 2.0 11/24/16 07:56 36.8 71 24 94/55 (68) 96 Nasal Cannula 2.0 11/24/16 04:00 Room Air 11/24/16 03:25 36.4 76 20 93/53 (66) 94 Nasal Cannula 2.0 11/24/16 00:01 Room Air 11/23/16 23:20 36.5 79 18 100/64 (76) 97 Nasal Cannula 2.0 11/23/16 20:50 97/64 (75) 11/23/16 20:00 Room Air 11/23/16 19:38 36.4 77 18 92/63 (73) 92 Room Air 11/23/16 16:04 36.3 74 18 99/52 (68) 99 Nasal Cannula 3.0 11/23/16 16:00 Nasal Cannula 3.0 11/23/16 12:00 Nasal Cannula 2.0 Physical Exam General Appearance: no apparent distress Respiratory/Chest: no respiratory distress, no accessory muscle use, + decreased breath sounds Cardiovascular: regular rate, rhythm, no murmur Extremities: + pertinent finding (+3 pitting edema b/l LE) Laboratory Results Last 24 Hours Test 11/23/16 16:32 11/23/16 20:30 11/24/16 06:24 11/24/16 06:29 Bedside Glucose 111 mg/dl 153 mg/dl 113 mg/dl Sodium Level 135 mmol/L Potassium Level 3.2 mmol/L Chloride Level 96 mmol/L Carbon Dioxide Level 28 mmol/L Anion Gap 11.0 mmol/L Blood Urea Nitrogen 80 mg/dl Creatinine 2.10 mg/dl Est Creatinine Clear Calc Drug Dose 22.8 ml/min Estimated GFR () 23.9 Estimated GFR (Non- 20.6 BUN/Creatinine Ratio 38.2 Random Glucose 109 mg/dl Calcium Level 9.2 mg/dl Assessment and Plan This is an 86 year old female with a PMH of CAD, presumed ischemic cardiomyopathy and systolic CHF with EF of ~ 15-20%, HTN, DM2, HLD, CKD stage 3 presents with worsening shortness of breath, edema, weight gain Ischemic Cardiomyopathy Acute on Chronic Systolic CHF presented with bilateral lower extremity edema echo shows an EF of around 15-20% diuretic dosing being adjusted by cardiology; currently on Lasix and Zaroxolyn has been added continue Aldactone IV Lasix 80mg BID for now; monitor kidney function replete K, which was added this morning (11/24) by cardiology negative 2.5L fluid balance on 11/23 Acute Kidney Injury superimposed on CKD stage 3 creatinine on admission = 2.1 creatinine has been fluctuating likely cardiorenal syndrome due to above monitor the creatinine, avoid nephrotoxic agents when able creatinine ~ 2.0 may be new baseline UTI started on Rocephin urine culture pending Confusion likely sundowning/hospital psychosis appreciate mental health input - no medical intervention as this would make things worse reassurance and possibly one-to-one may be needed CAD continue aspirin, statin, b-nadeen, Imdur DVT ppx subq heparin DNR
--- NOTE | 2016-11-24 12:21 | Cardiology Follow-Up ---
Subjective General Date of Service: Nov 24, 2016. Pt evaluation today including: conversation w/ patient, physical exam, chart review, lab review, review of studies, review of inpatient medication list History of Present Illness The patient is a 86 year old female seen in follow-up. Fluid balance negative 1.5 liters over the past 24 hours. Creatinine has trended upward slightly. Patient is feeling better. Denies orthopnea. Lower extremity edema has improved. Requesting discharge if possible. Allergies Coded Allergies: Naproxen (Verified Allergy, Unknown, ., 11/17/16) Tramadol (Verified Allergy, Unknown, ., 11/17/16) Social History Hx Tobacco Use In Past Year?: No Hx Alcohol Use - Type And Amou: No Review of Systems Respiratory: + dyspnea on exertion, No cough, No wheezing, No shortness of breath, No dyspnea at rest, No hemoptysis Cardiac: + edema, No chest pain, No orthopnea, No PND, No claudication, No palpitations Physical Exam Vital Signs Last Vital Signs Documentation Date Time Temp Pulse Resp B/P (MAP) Pulse Ox O2 Delivery O2 Flow Rate FiO2 11/24/16 11:40 36.0 75 22 98/62 (74) 96 Nasal Cannula 2.0 Physical Exam Constitutional: General Apperance: overweight Level of Distress: NAD Psychiatric: Mental Status: active & alert Orientation: to time, to place, to person Memory: recent memory normal, remote memory normal Head: normocephalic, atraumatic Eyes: Pupils: PERRLA Neck: pertinent finding (No overt JVD (examined in the bedside chair)) Lungs: Respiratory effort: no dyspnea Auscultation: no wheezing, no rales/crackles, no rhonchi, decreased breath sounds Cardiovascular: Heart Auscultation: no rubs, II/ TONIA, gallop, irregular rate rhythm Peripheral Pulses: Radial Pulse: normal on the left, normal on the right Dorsalis Pedis Pulse: absent on the left, absent on the right Abdomen: Bowel Sounds: normal Inspection & Palpation: soft, non-distended, no masses Extremities: no varicosities, no clubbing, no ulcers, edema (2+ LE edema up to her waist. +presacral edema) Neurologic: Cranial Nerves: grossly intact Assessment and Plan Assessment and Plan FINAL IMPRESSION: 1. Acute on chronic decompensated biventricular systolic heart failure with cardiorenal syndrome. -Improving with aggressive IV diuresis -Weight is down 9 kg since admission -Creatinine trending upward slightly today 2. Severe, presumed ischemic, cardiomyopathy with an ejection fraction of 15%- 20%. 3. PSVT versus possible atrial flutter. -No recurrence overnight 4. Moderate to severe tricuspid regurgitation without evidence of pulmonary hypertension on recent resting 2D transthoracic echo. 5. Chronic kidney disease stage III PLAN AND RECOMMENDATIONS: Hold a.m. dose of Zaroxolyn. Continue IV Lasix 80 mg BID plus aldactone. Continue Toprol-XL 25 mg twice daily. Follow daily weight, GFR, fluid balance, and electrolytes closely. 40 mEq of potassium will be given this a.m. Repeat basic metabolic panel tomorrow. Laboratory Results Last 24 Hours Test 11/23/16 16:32 11/23/16 20:30 11/24/16 06:24 11/24/16 06:29 Bedside Glucose 111 mg/dl 153 mg/dl 113 mg/dl Sodium Level 135 mmol/L Potassium Level 3.2 mmol/L Chloride Level 96 mmol/L Carbon Dioxide Level 28 mmol/L Anion Gap 11.0 mmol/L Blood Urea Nitrogen 80 mg/dl Creatinine 2.10 mg/dl Est Creatinine Clear Calc Drug Dose 22.8 ml/min Estimated GFR () 23.9 Estimated GFR (Non- 20.6 BUN/Creatinine Ratio 38.2 Random Glucose 109 mg/dl Calcium Level 9.2 mg/dl Test 11/24/16 11:20 Bedside Glucose 153 mg/dl
[2016-11-24] MEDS ORDERED: DOCUSATE SODIUM 100 MG CAP PO ONE (16:45)
[2016-11-24] MEDS ORDERED: NURSING DECISION MEDICATION ORDER SCH (16:45)
[2016-11-24] MEDS ORDERED: COUGH DROP (SUGAR FREE) LOZ 24 LOZ/1 BOX PO PRN (17:00)
[2016-11-24] MEDS: TRAZODONE HCL 50 MG TAB PO SCH (20:19)
[2016-11-24] MEDS: DOCUSATE SODIUM 100 MG CAP PO SCH (20:19)
[2016-11-25] VITALS (8 sets, daily range): BP systolic 93–109; BP diastolic 53–72; PULSE 60–82; TEMP 36.2–36.8; O2SAT 92–98
[2016-11-25 06:56] LABS: HEMATOCRIT 34.9 % (37-47); MEAN CELL VOLUME 89.5 fL (80-100); MEAN CORPUSCULAR HEMOGLOBIN 27.4 pg (25-34); MEAN CORPUSCULAR HGB CONC 30.7 g/dl (32-36); MEAN PLATELET VOLUME 10.9 fL (7.4-10.4); PLATELET COUNT 150 K/uL (130-400)
[2016-11-25 07:33] LABS: BUN/CREATININE RATIO 38.9 (10-20); CALCIUM 9.2 mg/dl (8.5-10.1); CREATININE 2.1 mg/dl (0.60-1.20); MAGNESIUM 1.6 mg/dl (1.8-2.4); POTASSIUM 3.2 mmol/L (3.5-5.1)
[2016-11-25] MEDS: FUROSEMIDE INJ 80 MG in SYRINGE 0 ML IV SCH ×2 (07:45→17:14)
[2016-11-25] MEDS: DOCUSATE SODIUM 100 MG CAP PO SCH ×2 (07:46→19:30)
[2016-11-25] MEDS: SPIRONOLACTONE 25 MG TAB PO SCH (07:46)
[2016-11-25] MEDS: ISOSORBIDE DINITRATE 5 MG TAB PO SCH ×2 (07:47→17:00)
[2016-11-25] MEDS: ASPIRIN 81 MG ECTAB PO SCH (07:47)
[2016-11-25] MEDS: POTASSIUM CHLORIDE 20 MEQ TABCR PO SCH (07:47)
[2016-11-25] MEDS: METOPROLOL SUCC 25MG EXT REL TAB PO SCH ×2 (07:48→19:30)
[2016-11-25] MEDS: ATORVASTATIN 40 MG TAB PO SCH (07:48)
[2016-11-25] MEDS: SENNA 8.6 MG TAB PO SCH (07:48)
[2016-11-25] MEDS: HEPARIN SOD 5000 UNIT/0.5 ML CARP SQ SCH ×2 (07:49→22:14)
[2016-11-25] MEDS: ALLOPURINOL 300 MG TAB PO SCH (07:49)
[2016-11-25] MEDS: INSULIN ASPART 100 UNITS/ML 3 ML PEN SC SCH ×4 (07:51→21:00)
[2016-11-25] MEDS ORDERED: POTASSIUM CHLORIDE 10 MEQ TABCR PO ONE (08:30)
[2016-11-25] MEDS: MAGNESIUM SULFATE 1GM / D5W 1 GM in PREMIXED IN D5W 100 ML IV SCH ×2 (09:20→10:33)
[2016-11-25] MEDS: POTASSIUM CHLR 10 MEQ / WTR 10 MEQ in PREMIXED WATER 100 ML IV SCH ×2 (11:30→14:01)
[2016-11-25] MEDS: CEFTRIAXONE SOD INJ 1 GM in DEXTROSE 5% ADD-VANTAGE 50ML 50 ML IV SCH (12:12)
[2016-11-25] MEDS ORDERED: ALBUT/IPRATROP 3MG/0.5MG NEB 3 ML VIAL INH ONE (13:00)
[2016-11-25] MEDS ORDERED: POTASSIUM CHLORIDE 10 MEQ TABCR PO STA (14:17)
--- NOTE | 2016-11-25 14:26 | Cardiology Follow-Up ---
Subjective General Date of Service: Nov 25, 2016. Pt evaluation today including: conversation w/ patient, conversation w/ family , physical exam, chart review, lab review, review of studies, conversation w/ political consultant, review of inpatient medication list History of Present Illness The patient is a 86 year old female seen in follow-up. Edema somewhat worse today. She's gained approximately 3 kg. Renal function remained stable. No orthopnea. Occasional PVCs on telemetry. No recurrent PSVT. Currently complaining of arm discomfort related to potassium infusion. Allergies Coded Allergies: Naproxen (Verified Allergy, Unknown, ., 11/17/16) Tramadol (Verified Allergy, Unknown, ., 11/17/16) Social History Hx Tobacco Use In Past Year?: No Hx Alcohol Use - Type And Amou: No Review of Systems Respiratory: + dyspnea on exertion, No cough, No sputum, No wheezing, No shortness of breath, No dyspnea at rest, No hemoptysis Cardiac: + edema, No chest pain, No orthopnea, No PND, No claudication, No palpitations Physical Exam Vital Signs Last Vital Signs Documentation Date Time Temp Pulse Resp B/P (MAP) Pulse Ox O2 Delivery O2 Flow Rate FiO2 11/25/16 13:01 63 18 97 Nasal Cannula 2.0 11/25/16 11:41 36.6 101/63 (76) Physical Exam Constitutional: General Apperance: overweight Level of Distress: NAD Psychiatric: Mental Status: active & alert Orientation: to time, to place, to person Memory: recent memory normal, remote memory normal Head: normocephalic, atraumatic Eyes: Pupils: PERRLA Neck: pertinent finding (No overt JVD (examined in the bedside chair)) Lungs: Respiratory effort: no dyspnea Auscultation: no wheezing, no rales/crackles, no rhonchi, decreased breath sounds Cardiovascular: Heart Auscultation: RRR, normal S1, normal S2, no rubs, II/ TONIA, gallop Peripheral Pulses: Radial Pulse: normal on the left, normal on the right Dorsalis Pedis Pulse: absent on the left, absent on the right Abdomen: Bowel Sounds: normal Inspection & Palpation: soft, non-distended, no masses Extremities: no varicosities, no clubbing, no ulcers, edema (2+ LE edema up to her waist. +presacral edema) Neurologic: Cranial Nerves: grossly intact Assessment and Plan Assessment and Plan FINAL IMPRESSION: 1. Acute on chronic decompensated biventricular systolic heart failure with cardiorenal syndrome. -Weight gain noted overnight -Creatinine stable 2. Severe, presumed ischemic, cardiomyopathy with an ejection fraction of 15%- 20%. 3. PSVT versus possible atrial flutter. -No recurrence overnight 4. Moderate to severe tricuspid regurgitation without evidence of pulmonary hypertension on recent resting 2D transthoracic echo. 5. Chronic kidney disease stage III 6. Hypokalemia related to diuretic therapy. PLAN AND RECOMMENDATIONS: Give 5 mg of Zaroxolyn this evening 30 minutes prior to dose of intravenous Lasix. Continue IV Lasix 80 mg BID plus aldactone. Continue Toprol-XL 25 mg twice daily. Follow daily weight, GFR, fluid balance, and electrolytes closely. IV potassium discontinued due to significant arm discomfort. I will give the patient 10 mEq orally times one now. Repeat basic metabolic panel tomorrow. Laboratory Results Last 24 Hours Test 11/24/16 16:41 11/24/16 20:01 11/25/16 06:26 11/25/16 06:35 Bedside Glucose 132 mg/dl 147 mg/dl 117 mg/dl White Blood Count 4.40 K/uL Red Blood Count 3.90 M/uL Hemoglobin 10.7 g/dL Hematocrit 34.9 % Mean Corpuscular Volume 89.5 fL Mean Corpuscular Hemoglobin 27.4 pg Mean Corpuscular Hemoglobin Concent 30.7 g/dl RDW Standard Deviation 61.9 fL RDW Coefficient of Variation 19.0 % Platelet Count 150 K/uL Mean Platelet Volume 10.9 fL Nucleated RBC Absolute Count (auto) 0.02 K/uL Nucleated Red Blood Cells % 0.5 % Sodium Level 136 mmol/L Potassium Level 3.2 mmol/L Chloride Level 95 mmol/L Carbon Dioxide Level 28 mmol/L Anion Gap 13.0 mmol/L Blood Urea Nitrogen 82 mg/dl Creatinine 2.10 mg/dl Est Creatinine Clear Calc Drug Dose 23.2 ml/min Estimated GFR () 23.9 Estimated GFR (Non- 20.6 BUN/Creatinine Ratio 38.9 Random Glucose 109 mg/dl Calcium Level 9.2 mg/dl Magnesium Level 1.6 mg/dl Test 11/25/16 11:14 Bedside Glucose 214 mg/dl
[2016-11-25] MEDS ORDERED: METOLAZONE 5 MG TAB PO ONE (16:30)
[2016-11-25] MEDS: TRAZODONE HCL 50 MG TAB PO SCH (19:31)
[2016-11-26] VITALS (8 sets, daily range): BP systolic 84–111; BP diastolic 44–70; PULSE 64–76; TEMP 36.2–36.8; O2SAT 91–96
[2016-11-26 07:19] LABS: HEMATOCRIT 35.9 % (37-47); MEAN CELL VOLUME 89.1 fL (80-100); MEAN CORPUSCULAR HEMOGLOBIN 27.8 pg (25-34); MEAN CORPUSCULAR HGB CONC 31.2 g/dl (32-36); MEAN PLATELET VOLUME 10.8 fL (7.4-10.4); PLATELET COUNT 152 K/uL (130-400); RED BLOOD COUNT 4.03 M/uL (4.2-5.4); WHITE BLOOD COUNT 5.28 K/uL (4.8-10.8)
--- NOTE | 2016-11-26 07:35 | Progress Note ---
Subjective Date of Service: Nov 25, 2016. Subjective Pt evaluation today including: conversation w/ patient, physical exam, lab review, review of studies, review of inpatient medication list Saw/examined the patient in room 221 She felt better today, no shortness of breath (11/25) Leg swelling persists Review of Systems Respiratory: No shortness of breath Cardiac: + edema, No chest pain Abdomen: No pain, No nausea, No vomiting, No diarrhea Medications Current Inpatient Medications Medications (Trade) Dose Ordered Sig/Jeri Route Start Time Stop Time Status Last Admin Dose Admin Acetaminophen (Tylenol Tab) 650 mg Q4H PRN PO 11/17/16 19:00 12/17/16 18:59 Promethazine HCl 12.5 mg/Sodium Chloride 50.5 ml @ 204 mls/hr Q6H PRN IV 11/17/16 19:15 12/17/16 19:14 Allopurinol (Zyloprim Tab) 300 mg DAILY PO 11/18/16 09:00 12/18/16 08:59 11/25/16 07:49 300 MG Aspirin (Ecotrin Tab) 81 mg DAILY PO 11/18/16 09:00 12/18/16 08:59 11/25/16 07:47 81 MG Atorvastatin Calcium (Lipitor Tab) 40 mg DAILY PO 11/18/16 09:00 12/18/16 08:59 11/25/16 07:48 40 MG Lorazepam (Ativan Tab) 0.5 mg HS PRN PO 11/17/16 20:00 12/17/16 19:59 11/22/16 20:38 0.5 MG Insulin Aspart (novoLOG ASPART) SLIDING SCALE If C... ACHS SC 11/17/16 21:00 12/17/16 20:59 11/25/16 17:16 5 UNITS Glucose (Glucose 40% Gel) 15-30 GRAMS 15 GRAMS... UD PRN PO 11/17/16 20:00 12/17/16 19:59 Glucose (Glucose Chew Tab) 4-8 Tablets 4 Tabl... UD PRN PO 11/17/16 20:00 12/17/16 19:59 Dextrose (Dextrose 50% 50ML Syringe) 25-50ML OF 50% DW IV FOR... UD PRN IV 11/17/16 20:00 12/17/16 19:59 Glucagon (Glucagon Inj) 1 mg UD PRN SQ 11/17/16 20:00 12/17/16 19:59 Heparin Sodium (Porcine) (Heparin Sq 5000 Unit/0.5ml) 5,000 unit Q12 SQ 11/18/16 21:00 12/17/16 21:59 11/25/16 22:14 5,000 UNIT Spironolactone (Aldactone Tab) 12.5 mg QAM PO 11/19/16 09:00 12/19/16 08:59 11/25/16 07:46 12.5 MG Isosorbide Dinitrate (Isordil Tab) 5 mg BID17 PO 11/19/16 17:00 12/19/16 16:59 11/24/16 08:36 5 MG Furosemide 80 mg/ Syringe 8 ml @ 4 mls/min BID17 IV 11/21/16 17:00 12/21/16 16:59 11/25/16 17:14 4 MLS/MIN Metoprolol Succinate (Toprol Xl Tab) 25 mg BID PO 11/21/16 21:00 12/21/16 20:59 11/25/16 19:30 25 MG Trazodone HCl (Desyrel Tab) 100 mg HS PO 11/22/16 21:00 12/22/16 20:59 11/25/16 19:31 100 MG Potassium Chloride (Klor-Con Tab) 40 meq QAM PO 11/24/16 10:00 12/24/16 09:59 11/25/16 07:47 40 MEQ Docusate Sodium (coLACE CAP) 100 mg BID PO 11/24/16 21:00 12/24/16 20:59 11/25/16 19:30 100 MG Senna (Senokot Tab) 8.6 mg QAM PO 11/25/16 09:00 12/25/16 08:59 11/25/16 07:48 8.6 MG Menthol (Nice Adilson) 1 adilson PRN PRN PO 11/24/16 17:00 12/24/16 16:59 11/24/16 17:54 1 ADILSON Objective Vital Signs Date Time Temp Pulse Resp B/P (MAP) Pulse Ox O2 Delivery O2 Flow Rate FiO2 11/26/16 07:26 36.4 64 20 102/62 (75) 94 Room Air 11/26/16 04:15 36.4 67 21 111/70 (84) 94 Room Air 11/26/16 04:03 Room Air 11/26/16 00:01 Room Air 11/25/16 23:41 36.8 70 22 109/71 (84) 92 Room Air 11/25/16 20:00 Room Air 11/25/16 18:48 36.3 76 20 102/66 (78) 93 Room Air 11/25/16 16:00 Nasal Cannula 2.0 11/25/16 15:20 36.3 72 20 97/53 (68) 93 Room Air 11/25/16 13:01 63 18 97 Nasal Cannula 2.0 11/25/16 12:00 97 Nasal Cannula 3.0 11/25/16 11:41 36.6 60 18 101/63 (76) 98 11/25/16 08:00 Nasal Cannula 3.0 Physical Exam General Appearance: no apparent distress Respiratory/Chest: lungs clear, normal breath sounds, no respiratory distress, no accessory muscle use Cardiovascular: regular rate, rhythm, no murmur Extremities: + swelling (+3 pitting edema b/l LE) Neurologic/Psychiatric: alert, normal mood/affect Laboratory Results Last 24 Hours Test 11/25/16 11:14 11/25/16 16:08 11/25/16 20:07 11/26/16 06:40 Bedside Glucose 214 mg/dl 142 mg/dl 137 mg/dl 122 mg/dl Test 11/26/16 07:03 White Blood Count 5.28 K/uL Red Blood Count 4.03 M/uL Hemoglobin 11.2 g/dL Hematocrit 35.9 % Mean Corpuscular Volume 89.1 fL Mean Corpuscular Hemoglobin 27.8 pg Mean Corpuscular Hemoglobin Concent 31.2 g/dl RDW Standard Deviation 61.1 fL RDW Coefficient of Variation 19.1 % Platelet Count 152 K/uL Mean Platelet Volume 10.8 fL Assessment and Plan This is an 86 year old female with a PMH of CAD, presumed ischemic cardiomyopathy and systolic CHF with EF of ~ 15-20%, HTN, DM2, HLD, CKD stage 3 presents with worsening shortness of breath, edema, weight gain Ischemic Cardiomyopathy Acute on Chronic Systolic CHF 11/25 restarted Zaroxolyn as per cardiology continue Aldactone + Lasix 11/24 presented with bilateral lower extremity edema echo shows an EF of around 15-20% diuretic dosing being adjusted by cardiology; currently on Lasix and Zaroxolyn has been added continue Aldactone IV Lasix 80mg BID for now; monitor kidney function replete K, which was added this morning (11/24) by cardiology negative 2.5L fluid balance on 11/23 Acute Kidney Injury superimposed on CKD stage 3 creatinine on admission = 2.1 creatinine has been fluctuating likely cardiorenal syndrome due to above monitor the creatinine, avoid nephrotoxic agents when able creatinine ~ 2.0 may be new baseline UTI started on Rocephin urine culture pending Confusion likely sundowning/hospital psychosis appreciate mental health input - no medical intervention as this would make things worse reassurance and possibly one-to-one may be needed CAD continue aspirin, statin, b-nadeen, Imdur DVT ppx subq heparin DNR
[2016-11-26] MEDS: INSULIN ASPART 100 UNITS/ML 3 ML PEN SC SCH ×4 (07:57→20:47)
[2016-11-26] MEDS: ALLOPURINOL 300 MG TAB PO SCH (08:42)
[2016-11-26] MEDS: FUROSEMIDE INJ 80 MG in SYRINGE 0 ML IV SCH ×2 (08:42→18:17)
[2016-11-26] MEDS: DOCUSATE SODIUM 100 MG CAP PO SCH ×2 (08:43→20:51)
[2016-11-26] MEDS: SPIRONOLACTONE 25 MG TAB PO SCH (08:43)
[2016-11-26] MEDS: METOPROLOL SUCC 25MG EXT REL TAB PO SCH ×2 (08:44→20:50)
[2016-11-26] MEDS: SENNA 8.6 MG TAB PO SCH (08:44)
[2016-11-26] MEDS: ASPIRIN 81 MG ECTAB PO SCH (08:44)
[2016-11-26] MEDS: ISOSORBIDE DINITRATE 5 MG TAB PO SCH ×2 (08:44→18:16)
[2016-11-26] MEDS: ATORVASTATIN 40 MG TAB PO SCH (08:45)
[2016-11-26] MEDS: POTASSIUM CHLORIDE 20 MEQ TABCR PO SCH (08:45)
[2016-11-26] MEDS: HEPARIN SOD 5000 UNIT/0.5 ML CARP SQ SCH ×2 (08:47→20:51)
--- NOTE | 2016-11-26 12:43 | Progress Note ---
Subjective Date of Service: Nov 26, 2016. Subjective Pt evaluation today including: conversation w/ patient, physical exam, lab review, review of studies, review of inpatient medication list Saw/examined the patient in room 221 No problems; denies shortness of breath/chest pain edema of the lower extremities persist, but improving Review of Systems Constitutional: No fever, No chills Respiratory: No cough, No sputum, No shortness of breath Cardiac: + edema, No chest pain Medications Current Inpatient Medications Medications (Trade) Dose Ordered Sig/Jeri Route Start Time Stop Time Status Last Admin Dose Admin Acetaminophen (Tylenol Tab) 650 mg Q4H PRN PO 11/17/16 19:00 12/17/16 18:59 Promethazine HCl 12.5 mg/Sodium Chloride 50.5 ml @ 204 mls/hr Q6H PRN IV 11/17/16 19:15 12/17/16 19:14 Allopurinol (Zyloprim Tab) 300 mg DAILY PO 11/18/16 09:00 12/18/16 08:59 11/26/16 08:42 300 MG Aspirin (Ecotrin Tab) 81 mg DAILY PO 11/18/16 09:00 12/18/16 08:59 11/26/16 08:44 81 MG Atorvastatin Calcium (Lipitor Tab) 40 mg DAILY PO 11/18/16 09:00 12/18/16 08:59 11/26/16 08:45 40 MG Lorazepam (Ativan Tab) 0.5 mg HS PRN PO 11/17/16 20:00 12/17/16 19:59 11/22/16 20:38 0.5 MG Insulin Aspart (novoLOG ASPART) SLIDING SCALE If C... ACHS SC 11/17/16 21:00 12/17/16 20:59 11/25/16 17:16 5 UNITS Glucose (Glucose 40% Gel) 15-30 GRAMS 15 GRAMS... UD PRN PO 11/17/16 20:00 12/17/16 19:59 Glucose (Glucose Chew Tab) 4-8 Tablets 4 Tabl... UD PRN PO 11/17/16 20:00 12/17/16 19:59 Dextrose (Dextrose 50% 50ML Syringe) 25-50ML OF 50% DW IV FOR... UD PRN IV 11/17/16 20:00 12/17/16 19:59 Glucagon (Glucagon Inj) 1 mg UD PRN SQ 11/17/16 20:00 12/17/16 19:59 Heparin Sodium (Porcine) (Heparin Sq 5000 Unit/0.5ml) 5,000 unit Q12 SQ 11/18/16 21:00 12/17/16 21:59 11/26/16 08:47 5,000 UNIT Spironolactone (Aldactone Tab) 12.5 mg QAM PO 11/19/16 09:00 12/19/16 08:59 11/26/16 08:43 12.5 MG Isosorbide Dinitrate (Isordil Tab) 5 mg BID17 PO 11/19/16 17:00 12/19/16 16:59 11/26/16 08:44 5 MG Furosemide 80 mg/ Syringe 8 ml @ 4 mls/min BID17 IV 11/21/16 17:00 12/21/16 16:59 11/26/16 08:42 4 MLS/MIN Metoprolol Succinate (Toprol Xl Tab) 25 mg BID PO 11/21/16 21:00 12/21/16 20:59 11/26/16 08:44 25 MG Trazodone HCl (Desyrel Tab) 100 mg HS PO 11/22/16 21:00 12/22/16 20:59 11/25/16 19:31 100 MG Potassium Chloride (Klor-Con Tab) 40 meq QAM PO 11/24/16 10:00 12/24/16 09:59 11/26/16 08:45 40 MEQ Docusate Sodium (coLACE CAP) 100 mg BID PO 11/24/16 21:00 12/24/16 20:59 11/26/16 08:43 100 MG Senna (Senokot Tab) 8.6 mg QAM PO 11/25/16 09:00 12/25/16 08:59 11/25/16 07:48 8.6 MG Menthol (Nice Adilson) 1 adilson PRN PRN PO 11/24/16 17:00 12/24/16 16:59 11/24/16 17:54 1 ADILSON Objective Vital Signs Date Time Temp Pulse Resp B/P (MAP) Pulse Ox O2 Delivery O2 Flow Rate FiO2 11/26/16 12:00 Room Air 11/26/16 11:25 36.5 64 16 97/61 (73) 94 Room Air 11/26/16 08:00 Room Air 11/26/16 07:26 36.4 64 20 102/62 (75) 94 Room Air 11/26/16 04:15 36.4 67 21 111/70 (84) 94 Room Air 11/26/16 04:03 Room Air 11/26/16 00:01 Room Air 11/25/16 23:41 36.8 70 22 109/71 (84) 92 Room Air 11/25/16 20:00 Room Air 11/25/16 18:48 36.3 76 20 102/66 (78) 93 Room Air 11/25/16 16:00 Nasal Cannula 2.0 11/25/16 15:20 36.3 72 20 97/53 (68) 93 Room Air 11/25/16 13:01 63 18 97 Nasal Cannula 2.0 Physical Exam General Appearance: no apparent distress Respiratory/Chest: lungs clear, normal breath sounds, no respiratory distress, no accessory muscle use Cardiovascular: regular rate, rhythm, no murmur Extremities: + swelling (+edema; +2 pitting edema b/l LE), + pertinent finding Laboratory Results Last 24 Hours Test 11/25/16 16:08 11/25/16 20:07 11/26/16 06:40 11/26/16 07:03 Bedside Glucose 142 mg/dl 137 mg/dl 122 mg/dl White Blood Count 5.28 K/uL Red Blood Count 4.03 M/uL Hemoglobin 11.2 g/dL Hematocrit 35.9 % Mean Corpuscular Volume 89.1 fL Mean Corpuscular Hemoglobin 27.8 pg Mean Corpuscular Hemoglobin Concent 31.2 g/dl RDW Standard Deviation 61.1 fL RDW Coefficient of Variation 19.1 % Platelet Count 152 K/uL Mean Platelet Volume 10.8 fL Test 11/26/16 10:42 Bedside Glucose 136 mg/dl Assessment and Plan This is an 86 year old female with a PMH of CAD, presumed ischemic cardiomyopathy and systolic CHF with EF of ~ 15-20%, HTN, DM2, HLD, CKD stage 3 presents with worsening shortness of breath, edema, weight gain Ischemic Cardiomyopathy Acute on Chronic Systolic CHF 11/26 continue Lasix, Aldactone; currently on IV Lasix 80mg BID switch to oral when okay with cardio check PRP, kidney function; if it rises, we can decrease diuretic dose 11/25 restarted Zaroxolyn as per cardiology continue Aldactone + Lasix 11/24 presented with bilateral lower extremity edema echo shows an EF of around 15-20% diuretic dosing being adjusted by cardiology; currently on Lasix and Zaroxolyn has been added continue Aldactone IV Lasix 80mg BID for now; monitor kidney function replete K, which was added this morning (11/24) by cardiology negative 2.5L fluid balance on 11/23 Acute Kidney Injury superimposed on CKD stage 3 creatinine on admission = 2.1 creatinine has been fluctuating likely cardiorenal syndrome due to above monitor the creatinine, avoid nephrotoxic agents when able creatinine ~ 2.0 may be new baseline UTI started on Rocephin urine culture pending Confusion likely ing/hospital psychosis appreciate mental health input - no medical intervention as this would make things worse reassurance and possibly one-to-one may be needed CAD continue aspirin, statin, b-nadeen, Imdur DVT ppx subq heparin DNR
[2016-11-26 12:59] LABS: HEMATOCRIT 35.8 % (37-47); MEAN CELL VOLUME 89.9 fL (80-100); MEAN CORPUSCULAR HEMOGLOBIN 27.9 pg (25-34); MEAN PLATELET VOLUME 11.1 fL (7.4-10.4); PLATELET COUNT 164 K/uL (130-400); RED BLOOD COUNT 3.98 M/uL (4.2-5.4); WHITE BLOOD COUNT 5.06 K/uL (4.8-10.8)
[2016-11-26 13:33] LABS: BUN/CREATININE RATIO 38.1 (10-20); CALCIUM 9.7 mg/dl (8.5-10.1); CREATININE 2.1 mg/dl (0.60-1.20); POTASSIUM 3.6 mmol/L (3.5-5.1)
--- NOTE | 2016-11-26 15:55 | Cardiology Follow-Up ---
Subjective General Date of Service: Nov 26, 2016. Pt evaluation today including: conversation w/ patient, conversation w/ family , physical exam, chart review, lab review, review of studies, review of inpatient medication list History of Present Illness The patient is a 86 year old female seen in follow-up. Fluid balance negative approximately 1300 mL over the past 24 hours. Feeling better from a cardiovascular standpoint. Lower extremity edema has not significantly changed. Denies orthopnea or PND. No recurrent SVT on telemetry. Patient offers no new complaints this time. Allergies Coded Allergies: Naproxen (Verified Allergy, Unknown, ., 11/17/16) Tramadol (Verified Allergy, Unknown, ., 11/17/16) Social History Hx Tobacco Use In Past Year?: No Hx Alcohol Use - Type And Amou: No Review of Systems Respiratory: + shortness of breath, + dyspnea on exertion, No cough, No sputum , No wheezing, No dyspnea at rest, No hemoptysis Cardiac: + edema, No chest pain, No orthopnea, No PND, No claudication, No palpitations Physical Exam Vital Signs Last Vital Signs Documentation Date Time Temp Pulse Resp B/P (MAP) Pulse Ox O2 Delivery O2 Flow Rate FiO2 11/26/16 12:00 Room Air 11/26/16 11:25 36.5 64 16 97/61 (73) 94 11/25/16 16:00 2.0 Physical Exam Constitutional: General Apperance: overweight Level of Distress: NAD Psychiatric: Mental Status: active & alert Orientation: to time, to place, to person Memory: recent memory normal, remote memory normal Head: normocephalic, atraumatic Eyes: Pupils: PERRLA Neck: pertinent finding (No overt JVD (examined in the bedside chair)) Lungs: Respiratory effort: no dyspnea Auscultation: no wheezing, no rales/crackles, no rhonchi, decreased breath sounds Cardiovascular: Heart Auscultation: RRR, normal S1, normal S2, no rubs, II/ TONIA, gallop Peripheral Pulses: Radial Pulse: normal on the left, normal on the right Dorsalis Pedis Pulse: absent on the left, absent on the right Abdomen: Bowel Sounds: normal Inspection & Palpation: soft, non-distended, no masses Extremities: no varicosities, no clubbing, no ulcers, edema (2+ LE edema up to her waist. +presacral edema) Neurologic: Cranial Nerves: grossly intact Assessment and Plan Assessment and Plan FINAL IMPRESSION: 1. Acute on chronic decompensated biventricular systolic heart failure with cardiorenal syndrome. -I/O negative 1300cc over past 24 hours -Creatinine stable 2. Severe, presumed ischemic, cardiomyopathy with an ejection fraction of 15%- 20%. 3. PSVT versus possible atrial flutter. -No recurrence overnight 4. Moderate to severe tricuspid regurgitation without evidence of pulmonary hypertension on recent resting 2D transthoracic echo. 5. Chronic kidney disease stage III 6. Hypokalemia related to diuretic therapy. PLAN AND RECOMMENDATIONS: Continue to diurese patient with intravenous Lasix. Order standing dose of Zaroxolyn 5mg 30 minutes prior to evening dose of intravenous Lasix. Continue Toprol-XL 25 mg twice daily. Follow daily weight, GFR, fluid balance, and electrolytes closely. Laboratory Results Last 24 Hours Test 11/25/16 16:08 11/25/16 20:07 11/26/16 06:40 11/26/16 07:03 Bedside Glucose 142 mg/dl 137 mg/dl 122 mg/dl White Blood Count 5.28 K/uL Red Blood Count 4.03 M/uL Hemoglobin 11.2 g/dL Hematocrit 35.9 % Mean Corpuscular Volume 89.1 fL Mean Corpuscular Hemoglobin 27.8 pg Mean Corpuscular Hemoglobin Concent 31.2 g/dl RDW Standard Deviation 61.1 fL RDW Coefficient of Variation 19.1 % Platelet Count 152 K/uL Mean Platelet Volume 10.8 fL Test 11/26/16 10:42 11/26/16 12:49 Bedside Glucose 136 mg/dl White Blood Count 5.06 K/uL Red Blood Count 3.98 M/uL Hemoglobin 11.1 g/dL Hematocrit 35.8 % Mean Corpuscular Volume 89.9 fL Mean Corpuscular Hemoglobin 27.9 pg Mean Corpuscular Hemoglobin Concent 31.0 g/dl RDW Standard Deviation 62.4 fL RDW Coefficient of Variation 19.1 % Platelet Count 164 K/uL Mean Platelet Volume 11.1 fL Sodium Level 134 mmol/L Potassium Level 3.6 mmol/L Chloride Level 94 mmol/L Carbon Dioxide Level 30 mmol/L Anion Gap 10.0 mmol/L Blood Urea Nitrogen 80 mg/dl Creatinine 2.10 mg/dl Est Creatinine Clear Calc Drug Dose 23.2 ml/min Estimated GFR () 23.9 Estimated GFR (Non- 20.6 BUN/Creatinine Ratio 38.1 Random Glucose 134 mg/dl Calcium Level 9.7 mg/dl
[2016-11-26] MEDS: METOLAZONE 5 MG TAB PO SCH (18:17)
[2016-11-26] MEDS: TRAZODONE HCL 50 MG TAB PO SCH (20:51)
[2016-11-27] VITALS (10 sets, daily range): BP systolic 82–113; BP diastolic 52–64; PULSE 65–77; TEMP 36.3–36.6; O2SAT 91–96
[2016-11-27] MEDS: INSULIN ASPART 100 UNITS/ML 3 ML PEN SC SCH ×4 (07:30→21:00)
[2016-11-27 07:36] LABS: CALCIUM 9.7 mg/dl (8.5-10.1); MAGNESIUM 1.9 mg/dl (1.8-2.4); POTASSIUM 3.2 mmol/L (3.5-5.1)
[2016-11-27 07:53] LABS: HEMATOCRIT 35.6 % (37-47); MEAN CELL VOLUME 90.1 fL (80-100); MEAN CORPUSCULAR HEMOGLOBIN 28.1 pg (25-34); MEAN CORPUSCULAR HGB CONC 31.2 g/dl (32-36); MEAN PLATELET VOLUME 10.6 fL (7.4-10.4); PLATELET COUNT 155 K/uL (130-400); RED BLOOD COUNT 3.95 M/uL (4.2-5.4); WHITE BLOOD COUNT 6.09 K/uL (4.8-10.8)
[2016-11-27] MEDS: DOCUSATE SODIUM 100 MG CAP PO SCH ×2 (08:38→21:10)
[2016-11-27] MEDS: FUROSEMIDE INJ 80 MG in SYRINGE 0 ML IV SCH ×2 (08:38→17:27)
[2016-11-27] MEDS: ISOSORBIDE DINITRATE 5 MG TAB PO SCH ×2 (08:39→16:49)
[2016-11-27] MEDS: ALLOPURINOL 300 MG TAB PO SCH (08:40)
[2016-11-27] MEDS: ASPIRIN 81 MG ECTAB PO SCH (08:40)
[2016-11-27] MEDS: METOPROLOL SUCC 25MG EXT REL TAB PO SCH ×2 (08:40→21:11)
[2016-11-27] MEDS: ATORVASTATIN 40 MG TAB PO SCH (08:41)
[2016-11-27] MEDS: POTASSIUM CHLORIDE 20 MEQ TABCR PO SCH (08:41)
[2016-11-27] MEDS: SENNA 8.6 MG TAB PO SCH (08:41)
[2016-11-27] MEDS: HEPARIN SOD 5000 UNIT/0.5 ML CARP SQ SCH ×2 (08:43→21:13)
[2016-11-27] MEDS: SPIRONOLACTONE 25 MG TAB PO SCH (08:44)
[2016-11-27] MEDS: POTASSIUM CHLR 10 MEQ / WTR 10 MEQ in PREMIXED WATER 100 ML IV SCH ×4 (08:49→11:54)
--- NOTE | 2016-11-27 11:07 | Progress Note ---
Subjective Date of Service: Nov 27, 2016. Subjective Pt evaluation today including: conversation w/ patient, physical exam, lab review, review of studies, review of inpatient medication list Saw/examined the patient in room 221 She is tired today No chest pain or shortness of breath Edema is improving slightly Review of Systems Constitutional: No fever, No chills Respiratory: No shortness of breath Cardiac: + edema, No chest pain Abdomen: No pain, No nausea, No vomiting, No diarrhea Medications Current Inpatient Medications Medications (Trade) Dose Ordered Sig/Jeri Route Start Time Stop Time Status Last Admin Dose Admin Acetaminophen (Tylenol Tab) 650 mg Q4H PRN PO 11/17/16 19:00 12/17/16 18:59 Promethazine HCl 12.5 mg/Sodium Chloride 50.5 ml @ 204 mls/hr Q6H PRN IV 11/17/16 19:15 12/17/16 19:14 Allopurinol (Zyloprim Tab) 300 mg DAILY PO 11/18/16 09:00 12/18/16 08:59 11/27/16 08:40 300 MG Aspirin (Ecotrin Tab) 81 mg DAILY PO 11/18/16 09:00 12/18/16 08:59 11/27/16 08:40 81 MG Atorvastatin Calcium (Lipitor Tab) 40 mg DAILY PO 11/18/16 09:00 12/18/16 08:59 11/27/16 08:41 40 MG Lorazepam (Ativan Tab) 0.5 mg HS PRN PO 11/17/16 20:00 12/17/16 19:59 11/22/16 20:38 0.5 MG Insulin Aspart (novoLOG ASPART) SLIDING SCALE If C... ACHS SC 11/17/16 21:00 12/17/16 20:59 11/25/16 17:16 5 UNITS Glucose (Glucose 40% Gel) 15-30 GRAMS 15 GRAMS... UD PRN PO 11/17/16 20:00 12/17/16 19:59 Glucose (Glucose Chew Tab) 4-8 Tablets 4 Tabl... UD PRN PO 11/17/16 20:00 12/17/16 19:59 Dextrose (Dextrose 50% 50ML Syringe) 25-50ML OF 50% DW IV FOR... UD PRN IV 11/17/16 20:00 12/17/16 19:59 Glucagon (Glucagon Inj) 1 mg UD PRN SQ 11/17/16 20:00 12/17/16 19:59 Heparin Sodium (Porcine) (Heparin Sq 5000 Unit/0.5ml) 5,000 unit Q12 SQ 11/18/16 21:00 12/17/16 21:59 11/27/16 08:43 5,000 UNIT Spironolactone (Aldactone Tab) 12.5 mg QAM PO 11/19/16 09:00 12/19/16 08:59 11/27/16 08:44 12.5 MG Isosorbide Dinitrate (Isordil Tab) 5 mg BID17 PO 11/19/16 17:00 12/19/16 16:59 11/27/16 08:39 5 MG Furosemide 80 mg/ Syringe 8 ml @ 4 mls/min BID17 IV 11/21/16 17:00 12/21/16 16:59 11/27/16 08:38 4 MLS/MIN Metoprolol Succinate (Toprol Xl Tab) 25 mg BID PO 11/21/16 21:00 12/21/16 20:59 11/26/16 20:50 25 MG Trazodone HCl (Desyrel Tab) 100 mg HS PO 11/22/16 21:00 12/22/16 20:59 11/26/16 20:51 100 MG Potassium Chloride (Klor-Con Tab) 40 meq QAM PO 11/24/16 10:00 12/24/16 09:59 11/26/16 08:45 40 MEQ Docusate Sodium (coLACE CAP) 100 mg BID PO 11/24/16 21:00 12/24/16 20:59 11/27/16 08:38 100 MG Senna (Senokot Tab) 8.6 mg QAM PO 11/25/16 09:00 12/25/16 08:59 11/25/16 07:48 8.6 MG Menthol (Nice Adlison) 1 adilson PRN PRN PO 11/24/16 17:00 12/24/16 16:59 11/24/16 17:54 1 ADILSON Metolazone (Zaroxolyn Tab) 5 mg DAILY@1630 PO 11/26/16 16:30 12/26/16 16:29 11/26/16 18:17 5 MG Potassium Chloride 10 meq/ Prmx 100 ml @ 100 mls/hr Q1H IV 11/27/16 09:00 11/27/16 12:59 11/27/16 08:49 100 MLS/HR Objective Vital Signs Date Time Temp Pulse Resp B/P (MAP) Pulse Ox O2 Delivery O2 Flow Rate FiO2 11/27/16 09:00 74 108/64 (79) 11/27/16 08:00 Room Air 11/27/16 07:27 36.6 65 18 84/55 (65) 94 Room Air 11/27/16 04:00 91 Room Air 11/27/16 03:31 36.5 69 19 97/59 (72) 91 Room Air 11/26/16 23:59 93 Room Air 11/26/16 23:04 36.2 76 20 102/65 (77) 93 Room Air 11/26/16 20:00 95 Room Air 11/26/16 19:27 36.2 72 22 90/53 (65) 91 Room Air 11/26/16 16:00 36.8 67 20 84/44 (57) 96 Room Air 11/26/16 16:00 Room Air 11/26/16 12:00 Room Air 11/26/16 11:25 36.5 64 16 97/61 (73) 94 Room Air Physical Exam General Appearance: no apparent distress Respiratory/Chest: chest non-tender, lungs clear, normal breath sounds, no respiratory distress, no accessory muscle use Cardiovascular: regular rate, rhythm, no murmur Extremities: + swelling, + pertinent finding (+2 pitting edema b/l LE, improving) Laboratory Results Last 24 Hours Test 11/26/16 12:49 11/26/16 15:46 11/26/16 20:23 11/27/16 06:43 White Blood Count 5.06 K/uL 6.09 K/uL Red Blood Count 3.98 M/uL 3.95 M/uL Hemoglobin 11.1 g/dL 11.1 g/dL Hematocrit 35.8 % 35.6 % Mean Corpuscular Volume 89.9 fL 90.1 fL Mean Corpuscular Hemoglobin 27.9 pg 28.1 pg Mean Corpuscular Hemoglobin Concent 31.0 g/dl 31.2 g/dl RDW Standard Deviation 62.4 fL 62.7 fL RDW Coefficient of Variation 19.1 % 19.2 % Platelet Count 164 K/uL 155 K/uL Mean Platelet Volume 11.1 fL 10.6 fL Sodium Level 134 mmol/L 134 mmol/L Potassium Level 3.6 mmol/L 3.2 mmol/L Chloride Level 94 mmol/L 94 mmol/L Carbon Dioxide Level 30 mmol/L 29 mmol/L Anion Gap 10.0 mmol/L 11.0 mmol/L Blood Urea Nitrogen 80 mg/dl 80 mg/dl Creatinine 2.10 mg/dl 2.00 mg/dl Est Creatinine Clear Calc Drug Dose 23.2 ml/min 24.3 ml/min Estimated GFR () 23.9 25.4 Estimated GFR (Non- 20.6 21.9 BUN/Creatinine Ratio 38.1 40.0 Random Glucose 134 mg/dl 103 mg/dl Calcium Level 9.7 mg/dl 9.7 mg/dl Bedside Glucose 139 mg/dl 122 mg/dl Nucleated RBC Absolute Count (auto) 0.02 K/uL Nucleated Red Blood Cells % 0.3 % Magnesium Level 1.9 mg/dl Assessment and Plan This is an 86 year old female with a PMH of CAD, presumed ischemic cardiomyopathy and systolic CHF with EF of ~ 15-20%, HTN, DM2, HLD, CKD stage 3 presents with worsening shortness of breath, edema, weight gain Ischemic Cardiomyopathy Acute on Chronic Systolic CHF 11/27 appreciate cardiology input continue Lasix and Zaroxolyn bilateral LE edema improving 11/26 continue Lasix, Aldactone; currently on IV Lasix 80mg BID switch to oral when okay with cardio check PRP, kidney function; if it rises, we can decrease diuretic dose 11/25 restarted Zaroxolyn as per cardiology continue Aldactone + Lasix 11/24 presented with bilateral lower extremity edema echo shows an EF of around 15-20% diuretic dosing being adjusted by cardiology; currently on Lasix and Zaroxolyn has been added continue Aldactone IV Lasix 80mg BID for now; monitor kidney function replete K, which was added this morning (11/24) by cardiology negative 2.5L fluid balance on 11/23 Acute Kidney Injury superimposed on CKD stage 3 11/27 creatinine at 2.0 today monitor daily, continue diuretics 11/26 creatinine on admission = 2.1 creatinine has been fluctuating likely cardiorenal syndrome due to above monitor the creatinine, avoid nephrotoxic agents when able creatinine ~ 2.0 may be new baseline UTI - resolved abx. stopped Confusion likely sundowning/hospital psychosis appreciate mental health input - no medical intervention as this would make things worse reassurance and possibly one-to-one may be needed CAD continue aspirin, statin, b-nadeen, Imdur DVT ppx subq heparin DNR
[2016-11-27] MEDS: METOLAZONE 5 MG TAB PO SCH (16:49)
[2016-11-27] MEDS ORDERED: NURSING VERBAL MED ORDER ONE (17:15)
[2016-11-27] MEDS ORDERED: POTASSIUM CHLORIDE 20 MEQ TABCR PO ONE (17:30)
[2016-11-27] MEDS: TRAZODONE HCL 50 MG TAB PO SCH (21:10)
[2016-11-28] VITALS (9 sets, daily range): BP systolic 91–108; BP diastolic 48–72; PULSE 70–79; TEMP 36.4–36.9; O2SAT 95–96
[2016-11-28 06:23] LABS: HEMATOCRIT 36.3 % (37-47); MEAN CELL VOLUME 90.5 fL (80-100); MEAN CORPUSCULAR HEMOGLOBIN 27.7 pg (25-34); MEAN CORPUSCULAR HGB CONC 30.6 g/dl (32-36); MEAN PLATELET VOLUME 10.7 fL (7.4-10.4); PLATELET COUNT 158 K/uL (130-400); RED BLOOD COUNT 4.01 M/uL (4.2-5.4); WHITE BLOOD COUNT 6.73 K/uL (4.8-10.8)
[2016-11-28 06:53] LABS: BUN/CREATININE RATIO 41.5 (10-20); CALCIUM 9.9 mg/dl (8.5-10.1); CREATININE 1.9 mg/dl (0.60-1.20); MAGNESIUM 1.8 mg/dl (1.8-2.4); POTASSIUM 3.3 mmol/L (3.5-5.1)
[2016-11-28] MEDS: INSULIN ASPART 100 UNITS/ML 3 ML PEN SC SCH ×4 (08:47→20:56)
[2016-11-28] MEDS: FUROSEMIDE INJ 80 MG in SYRINGE 0 ML IV SCH ×2 (08:48→17:38)
[2016-11-28] MEDS: ATORVASTATIN 40 MG TAB PO SCH (08:48)
[2016-11-28] MEDS: DOCUSATE SODIUM 100 MG CAP PO SCH ×2 (08:48→20:56)
[2016-11-28] MEDS: ISOSORBIDE DINITRATE 5 MG TAB PO SCH ×2 (08:48→17:00)
[2016-11-28] MEDS: METOPROLOL SUCC 25MG EXT REL TAB PO SCH ×2 (08:49→20:56)
[2016-11-28] MEDS: ASPIRIN 81 MG ECTAB PO SCH (08:49)
[2016-11-28] MEDS: SENNA 8.6 MG TAB PO SCH (08:49)
[2016-11-28] MEDS: SPIRONOLACTONE 25 MG TAB PO SCH ×2 (08:50→17:06)
[2016-11-28] MEDS: ALLOPURINOL 300 MG TAB PO SCH (08:50)
[2016-11-28] MEDS: POTASSIUM CHLORIDE 20 MEQ TABCR PO SCH (08:50)
[2016-11-28] MEDS: HEPARIN SOD 5000 UNIT/0.5 ML CARP SQ SCH ×2 (08:53→20:59)
--- NOTE | 2016-11-28 09:10 | Progress Note ---
Subjective Date of Service: Nov 28, 2016. Subjective Pt evaluation today including: conversation w/ patient, physical exam, lab review, review of studies, review of inpatient medication list Saw/examined the patient in room 221 She's doing okay, did not get sleep last night Denies shortness of breath or chest pain She is eager to go home Review of Systems Respiratory: No shortness of breath Cardiac: + edema, No chest pain Abdomen: No pain, No nausea, No vomiting, No diarrhea Medications Current Inpatient Medications Medications (Trade) Dose Ordered Sig/Jeri Route Start Time Stop Time Status Last Admin Dose Admin Acetaminophen (Tylenol Tab) 650 mg Q4H PRN PO 11/17/16 19:00 12/17/16 18:59 Promethazine HCl 12.5 mg/Sodium Chloride 50.5 ml @ 204 mls/hr Q6H PRN IV 11/17/16 19:15 12/17/16 19:14 Allopurinol (Zyloprim Tab) 300 mg DAILY PO 11/18/16 09:00 12/18/16 08:59 11/28/16 08:50 300 MG Aspirin (Ecotrin Tab) 81 mg DAILY PO 11/18/16 09:00 12/18/16 08:59 11/28/16 08:49 81 MG Atorvastatin Calcium (Lipitor Tab) 40 mg DAILY PO 11/18/16 09:00 12/18/16 08:59 11/28/16 08:48 40 MG Lorazepam (Ativan Tab) 0.5 mg HS PRN PO 11/17/16 20:00 12/17/16 19:59 11/22/16 20:38 0.5 MG Insulin Aspart (novoLOG ASPART) SLIDING SCALE If C... ACHS SC 11/17/16 21:00 12/17/16 20:59 11/25/16 17:16 5 UNITS Glucose (Glucose 40% Gel) 15-30 GRAMS 15 GRAMS... UD PRN PO 11/17/16 20:00 12/17/16 19:59 Glucose (Glucose Chew Tab) 4-8 Tablets 4 Tabl... UD PRN PO 11/17/16 20:00 12/17/16 19:59 Dextrose (Dextrose 50% 50ML Syringe) 25-50ML OF 50% DW IV FOR... UD PRN IV 11/17/16 20:00 12/17/16 19:59 Glucagon (Glucagon Inj) 1 mg UD PRN SQ 11/17/16 20:00 12/17/16 19:59 Heparin Sodium (Porcine) (Heparin Sq 5000 Unit/0.5ml) 5,000 unit Q12 SQ 11/18/16 21:00 12/17/16 21:59 11/28/16 08:53 5,000 UNIT Spironolactone (Aldactone Tab) 12.5 mg QAM PO 11/19/16 09:00 12/19/16 08:59 11/28/16 08:50 12.5 MG Isosorbide Dinitrate (Isordil Tab) 5 mg BID17 PO 11/19/16 17:00 12/19/16 16:59 11/28/16 08:48 5 MG Furosemide 80 mg/ Syringe 8 ml @ 4 mls/min BID17 IV 11/21/16 17:00 12/21/16 16:59 11/28/16 08:48 4 MLS/MIN Metoprolol Succinate (Toprol Xl Tab) 25 mg BID PO 11/21/16 21:00 12/21/16 20:59 11/28/16 08:49 25 MG Trazodone HCl (Desyrel Tab) 100 mg HS PO 11/22/16 21:00 12/22/16 20:59 11/27/16 21:10 100 MG Potassium Chloride (Klor-Con Tab) 40 meq QAM PO 11/24/16 10:00 12/24/16 09:59 11/28/16 08:50 40 MEQ Docusate Sodium (coLACE CAP) 100 mg BID PO 11/24/16 21:00 12/24/16 20:59 11/28/16 08:48 100 MG Senna (Senokot Tab) 8.6 mg QAM PO 11/25/16 09:00 12/25/16 08:59 11/28/16 08:49 8.6 MG Menthol (Nice Adilson) 1 adilson PRN PRN PO 11/24/16 17:00 12/24/16 16:59 11/24/16 17:54 1 ADILSON Metolazone (Zaroxolyn Tab) 5 mg DAILY@1630 PO 11/26/16 16:30 12/26/16 16:29 11/27/16 16:49 5 MG Objective Vital Signs Date Time Temp Pulse Resp B/P (MAP) Pulse Ox O2 Delivery O2 Flow Rate FiO2 11/28/16 08:08 36.9 75 16 108/72 (84) 95 Room Air 11/28/16 04:00 95 Room Air 11/28/16 03:35 36.5 79 18 100/65 (77) 96 Room Air 11/27/16 23:59 95 Room Air 11/27/16 23:23 36.5 77 18 82/52 (62) 95 Room Air 11/27/16 20:00 95 Room Air 11/27/16 19:03 36.4 70 18 91/53 (66) 95 Room Air 11/27/16 16:00 Room Air 11/27/16 15:40 36.3 69 18 93/56 (68) 95 Room Air 11/27/16 12:05 36.6 72 16 113/58 (76) 96 Room Air 11/27/16 12:00 Room Air Physical Exam General Appearance: no apparent distress Respiratory/Chest: lungs clear, normal breath sounds, no respiratory distress, no accessory muscle use Cardiovascular: regular rate, rhythm, no murmur ( ) Extremities: + pertinent finding (+2 pitting edema b/l LE, improving) Laboratory Results Last 24 Hours Test 11/27/16 11:23 11/27/16 16:15 11/27/16 20:01 11/28/16 06:12 Bedside Glucose 154 mg/dl 107 mg/dl 135 mg/dl White Blood Count 6.73 K/uL Red Blood Count 4.01 M/uL Hemoglobin 11.1 g/dL Hematocrit 36.3 % Mean Corpuscular Volume 90.5 fL Mean Corpuscular Hemoglobin 27.7 pg Mean Corpuscular Hemoglobin Concent 30.6 g/dl RDW Standard Deviation 63.0 fL RDW Coefficient of Variation 19.3 % Platelet Count 158 K/uL Mean Platelet Volume 10.7 fL Sodium Level 134 mmol/L Potassium Level 3.3 mmol/L Chloride Level 94 mmol/L Carbon Dioxide Level 30 mmol/L Anion Gap 10.0 mmol/L Blood Urea Nitrogen 79 mg/dl Creatinine 1.90 mg/dl Est Creatinine Clear Calc Drug Dose 24.4 ml/min Estimated GFR () 27.0 Estimated GFR (Non- 23.3 BUN/Creatinine Ratio 41.5 Random Glucose 105 mg/dl Calcium Level 9.9 mg/dl Magnesium Level 1.8 mg/dl Test 11/28/16 06:35 Bedside Glucose 116 mg/dl Assessment and Plan This is an 86 year old female with a PMH of CAD, presumed ischemic cardiomyopathy and systolic CHF with EF of ~ 15-20%, HTN, DM2, HLD, CKD stage 3 presents with worsening shortness of breath, edema, weight gain Ischemic Cardiomyopathy Acute on Chronic Systolic CHF 11/28 continue current diuretics replace K transition to PO in AM if okay with cardiology 11/27 appreciate cardiology input continue Lasix and Zaroxolyn bilateral LE edema improving 11/26 continue Lasix, Aldactone; currently on IV Lasix 80mg BID switch to oral when okay with cardio check PRP, kidney function; if it rises, we can decrease diuretic dose 11/25 restarted Zaroxolyn as per cardiology continue Aldactone + Lasix 11/24 presented with bilateral lower extremity edema echo shows an EF of around 15-20% diuretic dosing being adjusted by cardiology; currently on Lasix and Zaroxolyn has been added continue Aldactone IV Lasix 80mg BID for now; monitor kidney function replete K, which was added this morning (11/24) by cardiology negative 2.5L fluid balance on 11/23 Acute Kidney Injury superimposed on CKD stage 3 11/27 creatinine at 2.0 today monitor daily, continue diuretics 11/26 creatinine on admission = 2.1 creatinine has been fluctuating likely cardiorenal syndrome due to above monitor the creatinine, avoid nephrotoxic agents when able creatinine ~ 2.0 may be new baseline UTI - resolved abx. stopped Confusion likely sundowning/hospital psychosis appreciate mental health input - no medical intervention as this would make things worse reassurance and possibly one-to-one may be needed CAD continue aspirin, statin, b-nadeen, Imdur DVT ppx subq heparin DNR
--- NOTE | 2016-11-28 14:31 | PROGRESS NOTE ---
DATE: 11/28/2016 CONSULTATION FOLLOWUP NOTE The patient seen and examined. Chart, medications, telemetry reviewed. SUBJECTIVE: The patient is arousable, answers questions. Notes no chest pains or discomfort, has continued to manifest ongoing diuresis. Weight down on certain amount though good response to diuretic therapy yesterday. OBJECTIVE: VITAL SIGNS: Heart rate 74, blood pressure this morning was 91/55. NECK: Thin. There is no distinct jugular venous distention. LUNGS: Reveal bibasilar diminished breath sounds. CARDIOVASCULAR: Regular with a grade 2/6 systolic murmur. ABDOMEN: Soft, nontender, there is no hepatojugular reflux. EXTREMITIES: Reveal persistent 3+ lower extremity edema, diminished pulses bilaterally. LABORATORY DATA: White cell count 6.7, hemoglobin is 11.1. Sodium is 134, potassium 3.3, chloride 94, bicarb is 30, BUN 79, creatinine is 1.9. IMPRESSION: An 86-year-old female with complex history of recent falls. 1. Acute on chronic decompensated biventricular systolic heart failure. 2. Cardiorenal syndrome. 3. Presumed ischemic cardiomyopathy with severe left ventricular dysfunction. RECOMMENDATIONS: Continue ongoing IV diuretics with metolazone augmentation. We will supplement potassium once again today, given low potassiums. We will also increase spironolactone dosing cautiously.
[2016-11-28] MEDS ORDERED: NURSING DECISION MEDICATION ORDER SCH (15:00)
[2016-11-28] MEDS ORDERED: MICONAZOLE NITRATE POWDER 43 GM EXT PRN (15:00)
[2016-11-28] MEDS: METOLAZONE 5 MG TAB PO SCH (17:04)
[2016-11-28] MEDS: TRAZODONE HCL 50 MG TAB PO SCH (20:55)
[2016-11-29] VITALS (10 sets, daily range): BP systolic 89–107; BP diastolic 53–67; PULSE 69–87; TEMP 36.3–37.1; O2SAT 92–97
[2016-11-29] MEDS: LORAZEPAM 0.5 MG TAB PO PRN (01:56)
[2016-11-29] MEDS: INSULIN ASPART 100 UNITS/ML 3 ML PEN SC SCH ×4 (07:00→20:49)
[2016-11-29] MEDS: ISOSORBIDE DINITRATE 5 MG TAB PO SCH ×2 (07:34→17:00)
[2016-11-29] MEDS: ALLOPURINOL 300 MG TAB PO SCH (07:35)
[2016-11-29] MEDS: ASPIRIN 81 MG ECTAB PO SCH (07:36)
[2016-11-29] MEDS: ATORVASTATIN 40 MG TAB PO SCH (07:36)
[2016-11-29 07:37] LABS: HEMATOCRIT 38.2 % (37-47); MEAN CELL VOLUME 91.2 fL (80-100); MEAN CORPUSCULAR HEMOGLOBIN 27.4 pg (25-34); MEAN CORPUSCULAR HGB CONC 30.1 g/dl (32-36); MEAN PLATELET VOLUME 10.7 fL (7.4-10.4); PLATELET COUNT 165 K/uL (130-400); RED BLOOD COUNT 4.19 M/uL (4.2-5.4); WHITE BLOOD COUNT 7.02 K/uL (4.8-10.8)
[2016-11-29] MEDS: POTASSIUM CHLORIDE 20 MEQ TABCR PO SCH (07:37)
[2016-11-29] MEDS: SENNA 8.6 MG TAB PO SCH (07:37)
[2016-11-29] MEDS: DOCUSATE SODIUM 100 MG CAP PO SCH ×2 (07:37→20:49)
[2016-11-29] MEDS: METOPROLOL SUCC 25MG EXT REL TAB PO SCH ×2 (07:37→20:49)
[2016-11-29] MEDS: SPIRONOLACTONE 25 MG TAB PO SCH ×2 (07:39→17:19)
[2016-11-29] MEDS: FUROSEMIDE INJ 80 MG in SYRINGE 0 ML IV SCH ×2 (07:40→17:17)
[2016-11-29] MEDS: HEPARIN SOD 5000 UNIT/0.5 ML CARP SQ SCH ×2 (07:41→20:50)
[2016-11-29 08:14] LABS: BUN/CREATININE RATIO 41.7 (10-20); CALCIUM 10.3 mg/dl (8.5-10.1); CREATININE 1.9 mg/dl (0.60-1.20); MAGNESIUM 1.7 mg/dl (1.8-2.4); POTASSIUM 3.4 mmol/L (3.5-5.1)
[2016-11-29] MEDS ORDERED: MAGNESIUM SULFATE 1GM / D5W 1 GM in PREMIXED IN D5W 100 ML IV STA (10:03)
[2016-11-29] MEDS ORDERED: POTASSIUM CHLORIDE 10 MEQ TABCR PO STA (10:03)
--- NOTE | 2016-11-29 10:19 | Progress Note ---
Subjective Date of Service: Nov 29, 2016. Subjective Pt evaluation today including: conversation w/ patient, physical exam, lab review, review of studies, review of inpatient medication list Saw/examined the patient in room 221 She is resting comfortably; denies chest pain/shortness of breath Edema persists Legs look more red, but she tells me it is not painful No other issues to note Review of Systems Constitutional: No fever, No chills Respiratory: No cough, No sputum, No shortness of breath Cardiac: + edema, No chest pain Abdomen: No pain, No nausea, No vomiting, No diarrhea Medications Current Inpatient Medications Medications (Trade) Dose Ordered Sig/Jeri Route Start Time Stop Time Status Last Admin Dose Admin Acetaminophen (Tylenol Tab) 650 mg Q4H PRN PO 11/17/16 19:00 12/17/16 18:59 Promethazine HCl 12.5 mg/Sodium Chloride 50.5 ml @ 204 mls/hr Q6H PRN IV 11/17/16 19:15 12/17/16 19:14 Allopurinol (Zyloprim Tab) 300 mg DAILY PO 11/18/16 09:00 12/18/16 08:59 11/29/16 07:35 300 MG Aspirin (Ecotrin Tab) 81 mg DAILY PO 11/18/16 09:00 12/18/16 08:59 11/29/16 07:36 81 MG Atorvastatin Calcium (Lipitor Tab) 40 mg DAILY PO 11/18/16 09:00 12/18/16 08:59 11/29/16 07:36 40 MG Lorazepam (Ativan Tab) 0.5 mg HS PRN PO 11/17/16 20:00 12/17/16 19:59 11/29/16 01:56 0.5 MG Insulin Aspart (novoLOG ASPART) SLIDING SCALE If C... ACHS SC 11/17/16 21:00 12/17/16 20:59 11/25/16 17:16 5 UNITS Glucose (Glucose 40% Gel) 15-30 GRAMS 15 GRAMS... UD PRN PO 11/17/16 20:00 12/17/16 19:59 Glucose (Glucose Chew Tab) 4-8 Tablets 4 Tabl... UD PRN PO 11/17/16 20:00 12/17/16 19:59 Dextrose (Dextrose 50% 50ML Syringe) 25-50ML OF 50% DW IV FOR... UD PRN IV 11/17/16 20:00 12/17/16 19:59 Glucagon (Glucagon Inj) 1 mg UD PRN SQ 11/17/16 20:00 12/17/16 19:59 Heparin Sodium (Porcine) (Heparin Sq 5000 Unit/0.5ml) 5,000 unit Q12 SQ 11/18/16 21:00 12/17/16 21:59 11/29/16 07:41 5,000 UNIT Isosorbide Dinitrate (Isordil Tab) 5 mg BID17 PO 11/19/16 17:00 12/19/16 16:59 11/29/16 07:34 5 MG Furosemide 80 mg/ Syringe 8 ml @ 4 mls/min BID17 IV 11/21/16 17:00 12/21/16 16:59 11/29/16 07:40 4 MLS/MIN Metoprolol Succinate (Toprol Xl Tab) 25 mg BID PO 11/21/16 21:00 12/21/16 20:59 11/29/16 07:37 25 MG Trazodone HCl (Desyrel Tab) 100 mg HS PO 11/22/16 21:00 12/22/16 20:59 11/28/16 20:55 100 MG Potassium Chloride (Klor-Con Tab) 40 meq QAM PO 11/24/16 10:00 12/24/16 09:59 11/29/16 07:37 40 MEQ Docusate Sodium (coLACE CAP) 100 mg BID PO 11/24/16 21:00 12/24/16 20:59 11/28/16 20:56 100 MG Senna (Senokot Tab) 8.6 mg QAM PO 11/25/16 09:00 12/25/16 08:59 11/28/16 08:49 8.6 MG Menthol (Nice Adilson) 1 adilson PRN PRN PO 11/24/16 17:00 12/24/16 16:59 11/24/16 17:54 1 ADILSON Metolazone (Zaroxolyn Tab) 5 mg DAILY@1630 PO 11/26/16 16:30 12/26/16 16:29 11/28/16 17:04 5 MG Spironolactone (Aldactone Tab) 12.5 mg BID17 PO 11/28/16 17:00 12/19/16 08:59 11/29/16 07:39 12.5 MG Miconazole Nitrate (Desenex Powder) 1 appln PRN PRN EXT 11/28/16 15:00 12/28/16 14:59 Magnesium Sulfate 1 gm/Prmx 100 ml @ 100 mls/hr NOW STAT IV 11/29/16 10:03 11/29/16 11:02 Doxycycline Hyclate (Vibramycin Cap) 100 mg BID PO 11/29/16 10:30 12/09/16 10:29 Objective Vital Signs Date Time Temp Pulse Resp B/P (MAP) Pulse Ox O2 Delivery O2 Flow Rate FiO2 11/29/16 08:00 Room Air 11/29/16 07:24 36.4 71 18 99/61 (74) 97 Room Air 11/29/16 04:00 95 Room Air 11/29/16 03:21 36.3 75 20 92/55 (67) 92 Room Air 11/28/16 23:59 95 Room Air 11/28/16 23:14 36.7 76 20 99/62 (74) 96 Room Air 11/28/16 20:00 95 Room Air 11/28/16 19:29 36.8 71 18 92/59 (70) 95 Room Air 11/28/16 16:00 Room Air 11/28/16 15:28 36.4 70 16 95/48 (64) 96 Room Air 11/28/16 12:31 36.9 74 16 91/55 (67) 96 Room Air 11/28/16 12:00 Room Air Physical Exam General Appearance: no apparent distress Respiratory/Chest: lungs clear, normal breath sounds, no respiratory distress, no accessory muscle use Cardiovascular: regular rate, rhythm, no murmur Extremities: + swelling (+2 pitting edema b/l LE), + pertinent finding ( erythema noted on lower LE; venous stasis changes, but erythema overlying) Laboratory Results Last 24 Hours Test 11/28/16 11:29 11/28/16 16:16 11/28/16 20:10 11/29/16 07:10 Bedside Glucose 135 mg/dl 125 mg/dl 137 mg/dl 119 mg/dl Test 11/29/16 07:15 White Blood Count 7.02 K/uL Red Blood Count 4.19 M/uL Hemoglobin 11.5 g/dL Hematocrit 38.2 % Mean Corpuscular Volume 91.2 fL Mean Corpuscular Hemoglobin 27.4 pg Mean Corpuscular Hemoglobin Concent 30.1 g/dl RDW Standard Deviation 63.6 fL RDW Coefficient of Variation 19.4 % Platelet Count 165 K/uL Mean Platelet Volume 10.7 fL Sodium Level 135 mmol/L Potassium Level 3.4 mmol/L Chloride Level 94 mmol/L Carbon Dioxide Level 30 mmol/L Anion Gap 11.0 mmol/L Blood Urea Nitrogen 79 mg/dl Creatinine 1.90 mg/dl Est Creatinine Clear Calc Drug Dose 25.4 ml/min Estimated GFR () 27.0 Estimated GFR (Non- 23.3 BUN/Creatinine Ratio 41.7 Random Glucose 111 mg/dl Calcium Level 10.3 mg/dl Magnesium Level 1.7 mg/dl Assessment and Plan This is an 86 year old female with a PMH of CAD, presumed ischemic cardiomyopathy and systolic CHF with EF of ~ 15-20%, HTN, DM2, HLD, CKD stage 3 presents with worsening shortness of breath, edema, weight gain Ischemic Cardiomyopathy Acute on Chronic Systolic CHF 11/29 continue diuresis as she is still have negative fluid balance swelling persists, but improving erythema noted around the LLE - added doxycycline for possible cellulitis 11/28 continue current diuretics replace K transition to PO in AM if okay with cardiology 11/27 appreciate cardiology input continue Lasix and Zaroxolyn bilateral LE edema improving 11/26 continue Lasix, Aldactone; currently on IV Lasix 80mg BID switch to oral when okay with cardio check PRP, kidney function; if it rises, we can decrease diuretic dose 11/25 restarted Zaroxolyn as per cardiology continue Aldactone + Lasix 11/24 presented with bilateral lower extremity edema echo shows an EF of around 15-20% diuretic dosing being adjusted by cardiology; currently on Lasix and Zaroxolyn has been added continue Aldactone IV Lasix 80mg BID for now; monitor kidney function replete K, which was added this morning (11/24) by cardiology negative 2.5L fluid balance on 11/23 Acute Kidney Injury superimposed on CKD stage 3 11/27 creatinine at 2.0 today monitor daily, continue diuretics 11/26 creatinine on admission = 2.1 creatinine has been fluctuating likely cardiorenal syndrome due to above monitor the creatinine, avoid nephrotoxic agents when able creatinine ~ 2.0 may be new baseline UTI - resolved abx. stopped Confusion likely sundowning/hospital psychosis appreciate mental health input - no medical intervention as this would make things worse reassurance and possibly one-to-one may be needed CAD continue aspirin, statin, b-nadeen, Imdur DVT ppx subq heparin DNR
[2016-11-29] MEDS: DOXYCYCLINE HYCLATE 100 MG CAP PO SCH ×2 (10:50→20:49)
--- NOTE | 2016-11-29 10:51 | Cardiology Follow-Up ---
Subjective General Date of Service: Nov 29, 2016. Chief Complaint: Heart failure Pt evaluation today including: conversation w/ patient, physical exam, chart review, lab review, review of studies, review of inpatient medication list History of Present Illness Patient seen and examined. Denies chest pain. Comfortable at rest. No cough. No palpitations. Ongoing peripheral edema. Negative fluid balance over the last 5 days. Weights have not been accurately recorded. Telemetry: Sinus at 70 bpm currently. Ectopy. Allergies Coded Allergies: Naproxen (Verified Allergy, Unknown, ., 11/17/16) Tramadol (Verified Allergy, Unknown, ., 11/17/16) Social History Hx Tobacco Use In Past Year?: No Hx Alcohol Use - Type And Amou: No Physical Exam Vital Signs Last Vital Signs Documentation Date Time Temp Pulse Resp B/P (MAP) Pulse Ox O2 Delivery O2 Flow Rate FiO2 11/29/16 08:00 Room Air 11/29/16 07:24 36.4 71 18 99/61 (74) 97 11/25/16 16:00 2.0 Physical Exam Constitutional: General Apperance: overweight Level of Distress: NAD Psychiatric: Mental Status: active & alert Orientation: to time, to place, to person Memory: recent memory normal, remote memory normal Head: normocephalic, atraumatic Eyes: Pupils: PERRLA Neck: pertinent finding (No overt JVD ) Lungs: Respiratory effort: no dyspnea Auscultation: no wheezing, no rales/crackles, no rhonchi, decreased breath sounds Cardiovascular: Heart Auscultation: RRR, normal S1, normal S2, no rubs, II/ TONIA, gallop Peripheral Pulses: Radial Pulse: normal on the left, normal on the right Dorsalis Pedis Pulse: absent on the left, absent on the right Abdomen: Bowel Sounds: normal Inspection & Palpation: soft, non-distended, no masses Extremities: no varicosities, no clubbing, no ulcers, edema (2+ distal lower extremity edema with erythema suggestive of bilateral lower extremity cellulitis. ) Neurologic: Cranial Nerves: grossly intact Assessment and Plan Assessment and Plan Acute decompensated systolic congestive heart failure, failing outpatient attempts of management with titration of furosemide and use of metolazone. Severe systolic congestive heart failure (presumably ischemic) with NYHA Class III+ dyspnea, LVEF 15-20%, QRS interval less than 150 ms. Stage III chronic kidney disease Cardiorenal syndrome. Hypokalemia related to diuretic therapy. Bilateral lower extremity cellulitis PSVT versus possible atrial flutter Untreated obstructive sleep apnea Type II diabetes mellitus ACEI/ARB contraindicated History of left breast cancer status post lumpectomy and radiation therapy, 2001 PLAN AND RECOMMENDATIONS: Continue to diurese patient with IV Lasix and oral metolazone. Supplement potassium, maintain electrolytes. Continue Toprol XL, spironolactone, Isordil, ASA, and statin. No TAMMY inhibition, ARB, or Entresto Sodium and fluid restrict Eventual transition to oral Torsemide prior to discharge. Patient seen and personally examined. Ambulated in hallway this am. Leg edema persistent but overall volume status gradually improving. Plan as above Rafa Nolan MD Laboratory Results Last 24 Hours Test 11/28/16 11:29 11/28/16 16:16 11/28/16 20:10 11/29/16 07:10 Bedside Glucose 135 mg/dl 125 mg/dl 137 mg/dl 119 mg/dl Test 11/29/16 07:15 White Blood Count 7.02 K/uL Red Blood Count 4.19 M/uL Hemoglobin 11.5 g/dL Hematocrit 38.2 % Mean Corpuscular Volume 91.2 fL Mean Corpuscular Hemoglobin 27.4 pg Mean Corpuscular Hemoglobin Concent 30.1 g/dl RDW Standard Deviation 63.6 fL RDW Coefficient of Variation 19.4 % Platelet Count 165 K/uL Mean Platelet Volume 10.7 fL Sodium Level 135 mmol/L Potassium Level 3.4 mmol/L Chloride Level 94 mmol/L Carbon Dioxide Level 30 mmol/L Anion Gap 11.0 mmol/L Blood Urea Nitrogen 79 mg/dl Creatinine 1.90 mg/dl Est Creatinine Clear Calc Drug Dose 25.4 ml/min Estimated GFR () 27.0 Estimated GFR (Non- 23.3 BUN/Creatinine Ratio 41.7 Random Glucose 111 mg/dl Calcium Level 10.3 mg/dl Magnesium Level 1.7 mg/dl
[2016-11-29] MEDS: METOLAZONE 5 MG TAB PO SCH (16:37)
[2016-11-29] MEDS: TRAZODONE HCL 50 MG TAB PO SCH (20:49)
[2016-11-30] VITALS (11 sets, daily range): BP systolic 93–104; BP diastolic 54–65; PULSE 68–77; TEMP 36.4–37.1; O2SAT 94–98
[2016-11-30] MEDS: LORAZEPAM 0.5 MG TAB PO PRN (01:34)
[2016-11-30 06:50] LABS: HEMATOCRIT 35.5 % (37-47); MEAN CELL VOLUME 89.9 fL (80-100); MEAN CORPUSCULAR HEMOGLOBIN 27.6 pg (25-34); MEAN CORPUSCULAR HGB CONC 30.7 g/dl (32-36); MEAN PLATELET VOLUME 11.7 fL (7.4-10.4); PLATELET COUNT 164 K/uL (130-400); RED BLOOD COUNT 3.95 M/uL (4.2-5.4); WHITE BLOOD COUNT 7.57 K/uL (4.8-10.8)
[2016-11-30 07:23] LABS: BUN/CREATININE RATIO 44.6 (10-20); CALCIUM 9.4 mg/dl (8.5-10.1); CREATININE 1.9 mg/dl (0.60-1.20); MAGNESIUM 1.7 mg/dl (1.8-2.4); POTASSIUM 3.7 mmol/L (3.5-5.1)
[2016-11-30] MEDS: ISOSORBIDE DINITRATE 5 MG TAB PO SCH ×2 (09:00→17:27)
[2016-11-30] MEDS: INSULIN ASPART 100 UNITS/ML 3 ML PEN SC SCH ×4 (09:02→20:29)
[2016-11-30] MEDS: HEPARIN SOD 5000 UNIT/0.5 ML CARP SQ SCH (09:02)
[2016-11-30] MEDS: DOCUSATE SODIUM 100 MG CAP PO SCH ×2 (09:03→20:53)
[2016-11-30] MEDS: ALLOPURINOL 300 MG TAB PO SCH (09:03)
[2016-11-30] MEDS: METOPROLOL SUCC 25MG EXT REL TAB PO SCH (09:04)
[2016-11-30] MEDS: DOXYCYCLINE HYCLATE 100 MG CAP PO SCH ×2 (09:04→20:53)
[2016-11-30] MEDS: SENNA 8.6 MG TAB PO SCH (09:04)
[2016-11-30] MEDS: ATORVASTATIN 40 MG TAB PO SCH (09:04)
[2016-11-30] MEDS: ASPIRIN 81 MG ECTAB PO SCH (09:05)
[2016-11-30] MEDS: FUROSEMIDE INJ 80 MG in SYRINGE 0 ML IV SCH ×2 (09:06→17:57)
[2016-11-30] MEDS: SPIRONOLACTONE 25 MG TAB PO SCH ×2 (09:06→17:27)
[2016-11-30] MEDS: POTASSIUM CHLORIDE 20 MEQ TABCR PO SCH (09:06)
--- NOTE | 2016-11-30 09:57 | Cardiology Follow-Up ---
Subjective General Date of Service: Nov 30, 2016. Chief Complaint: Heart failure Pt evaluation today including: conversation w/ patient, physical exam, chart review, lab review, review of studies, review of inpatient medication list History of Present Illness Patient seen and examined. + Ongoing difficulty sleeping. Comfortable at rest. Dyspneic with ambulation. Ongoing peripheral edema as well as evidence of left greater than right lower extremity cellulitis. Denies chest pain, cough, palpitations. Negative fluid balance continues, down 6,335 mL's over the past five days. Weights have not been accurately recorded. Telemetry: Sinus in the 70's. Ectopy in singles and couplets. Allergies Coded Allergies: Naproxen (Verified Allergy, Unknown, ., 11/17/16) Tramadol (Verified Allergy, Unknown, ., 11/17/16) Social History Hx Tobacco Use In Past Year?: No Hx Alcohol Use - Type And Amou: No Physical Exam Vital Signs Last Vital Signs Documentation Date Time Temp Pulse Resp B/P (MAP) Pulse Ox O2 Delivery O2 Flow Rate FiO2 11/30/16 09:43 69 95/60 (72) 11/30/16 08:00 Room Air 11/30/16 07:47 37.1 20 94 11/25/16 16:00 2.0 Physical Exam Constitutional: General Apperance: overweight Level of Distress: NAD Psychiatric: Mental Status: active & alert Orientation: to time, to place, to person Memory: recent memory normal, remote memory normal Head: normocephalic, atraumatic Eyes: Pupils: PERRLA Neck: pertinent finding (No overt JVD ) Lungs: Respiratory effort: no dyspnea Auscultation: no wheezing, no rales/crackles, no rhonchi, decreased breath sounds Cardiovascular: Heart Auscultation: RRR, normal S1, normal S2, no rubs, II/ TONIA, gallop Peripheral Pulses: Radial Pulse: normal on the left, normal on the right Dorsalis Pedis Pulse: absent on the left, absent on the right Abdomen: Bowel Sounds: normal Inspection & Palpation: soft, non-distended, no masses Extremities: no varicosities, no clubbing, no ulcers, edema (2+ distal lower extremity edema with erythema suggestive of bilateral lower extremity cellulitis. ) Neurologic: Cranial Nerves: grossly intact Assessment and Plan Assessment and Plan Ongoing evidence of acute decompensated systolic congestive heart failure Severe systolic congestive heart failure (presumably ischemic) with NYHA Class III+ dyspnea, LVEF 15-20%, QRS interval less than 150 ms. Stage III chronic kidney disease Cardiorenal syndrome. Hypokalemia related to diuretic therapy. Bilateral lower extremity cellulitis PSVT versus possible atrial flutter, resolved. Untreated obstructive sleep apnea Type II diabetes mellitus ACEI/ARB contraindication. History of left breast cancer status post lumpectomy and radiation therapy, 2001 PLAN AND RECOMMENDATIONS: Continue to diurese patient with IV Lasix and oral metolazone. ? transition to oral Torsemide tomorrow morning. Maintain electrolytes. Sodium and fluid restrict Continue Toprol XL, spironolactone, Isordil, ASA, and statin. No TAMMY inhibition, ARB, or Entresto Patient see and examined, plan as above. Continues slow diuresis, relative hypotension limiting therapies. Rafa Nolan MD Laboratory Results Last 24 Hours Test 11/29/16 11:17 11/29/16 16:42 11/29/16 20:04 11/30/16 06:20 Bedside Glucose 145 mg/dl 150 mg/dl 148 mg/dl White Blood Count 7.57 K/uL Red Blood Count 3.95 M/uL Hemoglobin 10.9 g/dL Hematocrit 35.5 % Mean Corpuscular Volume 89.9 fL Mean Corpuscular Hemoglobin 27.6 pg Mean Corpuscular Hemoglobin Concent 30.7 g/dl RDW Standard Deviation 62.8 fL RDW Coefficient of Variation 19.0 % Platelet Count 164 K/uL Mean Platelet Volume 11.7 fL Sodium Level 136 mmol/L Potassium Level 3.7 mmol/L Chloride Level 94 mmol/L Carbon Dioxide Level 31 mmol/L Anion Gap 11.0 mmol/L Blood Urea Nitrogen 85 mg/dl Creatinine 1.90 mg/dl Est Creatinine Clear Calc Drug Dose 25.5 ml/min Estimated GFR () 27.0 Estimated GFR (Non- 23.3 BUN/Creatinine Ratio 44.6 Random Glucose 113 mg/dl Calcium Level 9.4 mg/dl Magnesium Level 1.7 mg/dl Test 11/30/16 07:00 Bedside Glucose 121 mg/dl
--- NOTE | 2016-11-30 12:09 | Progress Note ---
Internal Med Progress Note Date of Service: Nov 30, 2016. Provider Documentation: SUBJECTIVE: The patient was seen and examined Remains stable since admission Not any better since admission Denies any pain or increase SOB OBJECTIVE: Vital Signs-as noted below Exam: General-No distress at rest Eyes-Normal ENT-normal Neck-supple Lungs-Decreased breath sound bilaterally Minimal crackles at the bases Heart-Regular Abdomen-Distended,soft ,nontender,possible mild ascites Extremities-1 to 2 + edema bilaterally with cellulitis Neuro-AAOx3 Generally weak and lethargic Lab data as noted below. ASSESSMENT & PLAN: This is an 86 year old female with a PMH of CAD, presumed ischemic cardiomyopathy and systolic CHF with EF of ~ 15-20%, HTN, DM2, HLD, CKD stage 3 presents with worsening shortness of breath, edema, weight gain and bilateral legs cellulitis Ischemic Cardiomyopathy Acute on Chronic Systolic CHF Presented with bilateral lower extremity edema ECHO shows an EF of around 15-20% IV Lasix 80mg BID for now with Metolazone and Aldactone Monitor kidney function and monitor Electrolytes Diuresing enough Will transition to oral Torsemide on discharge Acute Kidney Injury superimposed on CKD stage 3 Creatinine on admission = 2.1 Remains stable at 1.9 for the las few days Bilateral Legs Cellulitis Continue Doxycycline Complicated by Edema UTI - resolved abx. stopped Confusion Likely sundowning/hospital psychosis Appreciate mental health input - no medical intervention as this would make things worse Denies any acute issue now CAD Continue Toprol XL, spironolactone, Isordil, ASA, and statin. No TAMMY inhibition, ARB, or Entresto No acute symptoms DM Monitor Blood sugar Continue SSI DVT ppx Subq heparin DNR Disposition PT/OT evaluation Vital Signs: Date Time Temp Pulse Resp B/P (MAP) Pulse Ox O2 Delivery O2 Flow Rate FiO2 11/30/16 11:11 Room Air 11/30/16 11:11 36.9 68 16 94/59 (71) 98 Room Air 11/30/16 08:50 69 95/60 (72) 11/30/16 08:00 Room Air 11/30/16 07:47 37.1 72 20 104/65 (78) 94 Room Air 11/30/16 04:00 94 Room Air 11/30/16 03:50 36.9 77 20 97/60 (72) 94 Room Air 11/30/16 00:20 36.4 73 18 93/55 (68) 95 Room Air 11/29/16 23:59 94 Room Air 11/29/16 20:47 75 89/53 (65) 11/29/16 20:00 94 Room Air 11/29/16 19:40 37.0 71 22 96/59 (71) 94 Room Air 11/29/16 17:13 73 98/59 (72) 11/29/16 15:48 Room Air 11/29/16 15:42 37.1 69 22 107/67 (80) 96 Room Air 11/29/16 12:00 Room Air Lab Results: Results Past 24 Hours Test 11/29/16 16:42 11/29/16 20:04 11/30/16 06:20 11/30/16 07:00 Range/Units Bedside Glucose 150 148 121 70-90 mg/dl White Blood Count 7.57 4.8-10.8 K/uL Red Blood Count 3.95 4.2-5.4 M/uL Hemoglobin 10.9 12.0-16.0 g/dL Hematocrit 35.5 37-47 % Mean Corpuscular Volume 89.9 80-100 fL Mean Corpuscular Hemoglobin 27.6 25-34 pg Mean Corpuscular Hemoglobin Concent 30.7 32-36 g/dl RDW Standard Deviation 62.8 36.4-46.3 fL RDW Coefficient of Variation 19.0 11.5-14.5 % Platelet Count 164 130-400 K/uL Mean Platelet Volume 11.7 7.4-10.4 fL Sodium Level 136 136-145 mmol/L Potassium Level 3.7 3.5-5.1 mmol/L Chloride Level 94 98-107 mmol/L Carbon Dioxide Level 31 21-32 mmol/L Anion Gap 11.0 3-11 mmol/L Blood Urea Nitrogen 85 7-18 mg/dl Creatinine 1.90 0.60-1.20 mg/dl Est Creatinine Clear Calc Drug Dose 25.5 ml/min Estimated GFR () 27.0 Estimated GFR (Non- 23.3 BUN/Creatinine Ratio 44.6 10-20 Random Glucose 113 70-99 mg/dl Calcium Level 9.4 8.5-10.1 mg/dl Magnesium Level 1.7 1.8-2.4 mg/dl Test 11/30/16 10:46 Range/Units Bedside Glucose 125 70-90 mg/dl
[2016-11-30] MEDS: METOLAZONE 5 MG TAB PO SCH (17:26)
[2016-11-30 20:13] LABS: HEMATOCRIT 35.4 % (37-47)
[2016-11-30] MEDS: TRAZODONE HCL 50 MG TAB PO SCH (20:53)
[2016-12-01] VITALS (7 sets, daily range): BP systolic 92–107; BP diastolic 62–67; PULSE 77–85; TEMP 36.4–37.2; O2SAT 94–98
[2016-12-01] MEDS: LORAZEPAM 0.5 MG TAB PO PRN (00:52)
[2016-12-01 08:05] LABS: BUN/CREATININE RATIO 42.4 (10-20); CALCIUM 9.9 mg/dl (8.5-10.1); CREATININE 1.8 mg/dl (0.60-1.20); MAGNESIUM 1.6 mg/dl (1.8-2.4); PHOSPHORUS 2.7 mg/dl (2.5-4.9); POTASSIUM 3.6 mmol/L (3.5-5.1)
[2016-12-01] MEDS: DOXYCYCLINE HYCLATE 100 MG CAP PO SCH ×2 (08:36→20:23)
[2016-12-01] MEDS: ISOSORBIDE DINITRATE 5 MG TAB PO SCH ×2 (08:37→17:49)
[2016-12-01] MEDS: SENNA 8.6 MG TAB PO SCH (08:37)
[2016-12-01] MEDS: ATORVASTATIN 40 MG TAB PO SCH (08:37)
[2016-12-01] MEDS: DOCUSATE SODIUM 100 MG CAP PO SCH ×2 (08:37→20:26)
[2016-12-01] MEDS: SPIRONOLACTONE 25 MG TAB PO SCH (08:37)
[2016-12-01] MEDS: ALLOPURINOL 300 MG TAB PO SCH (08:37)
[2016-12-01] MEDS: ASPIRIN 81 MG ECTAB PO SCH (08:37)
[2016-12-01] MEDS: POTASSIUM CHLORIDE 20 MEQ TABCR PO SCH (08:38)
[2016-12-01] MEDS: INSULIN ASPART 100 UNITS/ML 3 ML PEN SC SCH ×4 (08:39→20:24)
[2016-12-01] MEDS ORDERED: TORSEMIDE 20 MG TAB PO ONE ×2 (09:26→09:40)
[2016-12-01] MEDS ORDERED: SPIRONOLACTONE 25 MG TAB PO ONE (09:30)
--- NOTE | 2016-12-01 09:31 | Cardiology Follow-Up ---
Subjective General Date of Service: Dec 01, 2016. Chief Complaint: Heart failure Pt evaluation today including: conversation w/ patient, physical exam, chart review, lab review, review of studies, review of inpatient medication list History of Present Illness Patient seen and examined. Slept relatively well. Comfortable at rest. Dyspneic with ambulation. Ongoing distal peripheral edema as well as evidence of left greater than right lower extremity cellulitis (mildly improved today). Denies chest pain, cough, palpitations. I/O's are negative 11,954 ml's this admission. Weights are not accurately recorded. Telemetry: Sinus in the 70's. Ectopy in singles and couplets. Allergies Coded Allergies: Naproxen (Verified Allergy, Unknown, ., 11/17/16) Tramadol (Verified Allergy, Unknown, ., 11/17/16) Social History Hx Tobacco Use In Past Year?: No Hx Alcohol Use - Type And Amou: No Physical Exam Vital Signs Last Vital Signs Documentation Date Time Temp Pulse Resp B/P (MAP) Pulse Ox O2 Delivery O2 Flow Rate FiO2 12/01/16 08:03 36.5 80 20 106/64 (78) 96 Room Air 11/25/16 16:00 2.0 Physical Exam Constitutional: General Apperance: overweight Level of Distress: NAD Psychiatric: Mental Status: active & alert Orientation: to time, to place, to person Memory: recent memory normal, remote memory normal Head: normocephalic, atraumatic Eyes: Pupils: PERRLA Neck: pertinent finding (No overt JVD ) Lungs: Respiratory effort: no dyspnea Auscultation: no wheezing, no rales/crackles, no rhonchi, decreased breath sounds Cardiovascular: Heart Auscultation: RRR, normal S1, normal S2, no rubs, II/ TONIA, gallop Peripheral Pulses: Radial Pulse: normal on the left, normal on the right Dorsalis Pedis Pulse: absent on the left, absent on the right Abdomen: Bowel Sounds: normal Inspection & Palpation: soft, non-distended, no masses Extremities: no varicosities, no clubbing, no ulcers, edema (2+ distal lower extremity edema with erythema suggestive of bilateral lower extremity cellulitis. ) Neurologic: Cranial Nerves: grossly intact Assessment and Plan Assessment and Plan Admission with acute decompensated systolic congestive heart failure Severe systolic congestive heart failure (presumably ischemic) with NYHA Class III+ dyspnea, LVEF 15-20%, QRS interval less than 150 ms. Stage III chronic kidney disease Cardiorenal syndrome. Bilateral lower extremity cellulitis PSVT versus possible atrial flutter, resolved. Untreated obstructive sleep apnea Type II diabetes mellitus ACEI/ARB contraindication. History of left breast cancer status post lumpectomy and radiation therapy, 2001 PLAN AND RECOMMENDATIONS: Discontinue IV Lasix Hold metolazone; will likely need PRN down the road, with 40 mEq's PO potassium chloride. Start Torsemide, 50 mg by mouth twice a day Change spironolactone to 25 mg every morning Decrease supplemental potassium Resume Toprol XL (held last night for unknown reason(s) Continue Sodium and fluid restrictions Continue Isordil, ASA, and statin. No TAMMY inhibition, ARB, or Entresto Patient seen and examined. Plan as above, clinically improved. Will transition meds to oral therapies. Rafa Nolan MD Laboratory Results Last 24 Hours Test 11/30/16 10:46 11/30/16 16:32 11/30/16 19:47 11/30/16 20:07 Bedside Glucose 125 mg/dl 108 mg/dl 130 mg/dl Hemoglobin 11.0 g/dL Hematocrit 35.4 % Test 12/01/16 06:14 12/01/16 07:31 Bedside Glucose 115 mg/dl Sodium Level 135 mmol/L Potassium Level 3.6 mmol/L Chloride Level 93 mmol/L Carbon Dioxide Level 31 mmol/L Anion Gap 11.0 mmol/L Blood Urea Nitrogen 76 mg/dl Creatinine 1.80 mg/dl Est Creatinine Clear Calc Drug Dose 25.4 ml/min Estimated GFR () 28.8 Estimated GFR (Non- 24.9 BUN/Creatinine Ratio 42.4 Random Glucose 107 mg/dl Calcium Level 9.9 mg/dl Phosphorus Level 2.7 mg/dl Magnesium Level 1.6 mg/dl
[2016-12-01] MEDS: METOPROLOL SUCC 25MG EXT REL TAB PO SCH ×2 (11:42→20:00)
[2016-12-01] MEDS: TORSEMIDE 20 MG TAB PO SCH ×2 (11:43→20:26)
--- NOTE | 2016-12-01 14:51 | Progress Note ---
Internal Med Progress Note Date of Service: Dec 01, 2016. Provider Documentation: SUBJECTIVE: The patient was seen and examined Remains stable since admission Not any better since admission Diuresing more recently Has had Rectal bleed yesterday -no more episodes OBJECTIVE: Vital Signs-as noted below Exam: General-No distress at rest Eyes-Normal ENT-normal Neck-supple Lungs-Decreased breath sound bilaterally Minimal crackles at the bases Heart-Regular Abdomen-Distended,soft ,nontender,possible mild ascites Extremities-1 to 2 + edema bilaterally with cellulitis Neuro-AAOx3 Generally weak and lethargic Lab data as noted below. ASSESSMENT & PLAN: This is an 86 year old female with a PMH of CAD, presumed ischemic cardiomyopathy and systolic CHF with EF of ~ 15-20%, HTN, DM2, HLD, CKD stage 3 presents with worsening shortness of breath, edema, weight gain and bilateral legs cellulitis Ischemic Cardiomyopathy Acute on Chronic Systolic CHF Presented with bilateral lower extremity edema ECHO shows an EF of around 15-20% IV Lasix 80mg BID for now with Metolazone and Aldactone Monitor kidney function and monitor Electrolytes Diuresing enough Transition to Torsemide 50mg BID from today Transferred to [place] Likely discharge tomorrow Acute Kidney Injury superimposed on CKD stage 3 Creatinine on admission = 2.1 Remains stable at 1.9 for the las few days Will check Renal function tomorrow Bilateral Legs Cellulitis Continue Doxycycline Complicated by Edema Looking better UTI - resolved abx. stopped Confusion Likely /hospital psychosis Appreciate mental health input - no medical intervention as this would make things worse Denies any acute issue now CAD Continue Toprol XL, spironolactone, Isordil, ASA, and statin. No TAMMY inhibition, ARB, or Entresto No acute symptoms DM Monitor Blood sugar Continue SSI DVT ppx Subq heparin DNR Disposition PT/OT evaluation Vital Signs: Date Time Temp Pulse Resp B/P (MAP) Pulse Ox O2 Delivery O2 Flow Rate FiO2 12/01/16 14:44 37.2 77 20 95 12/01/16 12:00 Room Air 12/01/16 11:47 37.2 77 20 107/62 (77) 95 Room Air 12/01/16 08:03 36.5 80 20 106/64 (78) 96 Room Air 12/01/16 08:00 Room Air 12/01/16 04:00 Room Air 12/01/16 03:05 36.4 83 19 92/63 (73) 94 Room Air 11/30/16 23:59 95 Room Air 11/30/16 23:31 36.9 76 19 93/54 (67) 95 Room Air 11/30/16 20:00 Room Air 11/30/16 19:45 36.7 72 18 94/58 (70) 97 Room Air 11/30/16 16:36 36.6 75 20 99/64 (76) 97 Room Air 11/30/16 16:36 Room Air 11/30/16 16:00 Room Air Lab Results: Results Past 24 Hours Test 11/30/16 16:32 11/30/16 19:47 11/30/16 20:07 12/01/16 06:14 Range/Units Bedside Glucose 108 130 115 70-90 mg/dl Hemoglobin 11.0 12.0-16.0 g/dL Hematocrit 35.4 37-47 % Test 12/01/16 07:31 12/01/16 11:36 Range/Units Sodium Level 135 136-145 mmol/L Potassium Level 3.6 3.5-5.1 mmol/L Chloride Level 93 98-107 mmol/L Carbon Dioxide Level 31 21-32 mmol/L Anion Gap 11.0 3-11 mmol/L Blood Urea Nitrogen 76 7-18 mg/dl Creatinine 1.80 0.60-1.20 mg/dl Est Creatinine Clear Calc Drug Dose 25.4 ml/min Estimated GFR () 28.8 Estimated GFR (Non- 24.9 BUN/Creatinine Ratio 42.4 10-20 Random Glucose 107 70-99 mg/dl Calcium Level 9.9 8.5-10.1 mg/dl Phosphorus Level 2.7 2.5-4.9 mg/dl Magnesium Level 1.6 1.8-2.4 mg/dl Bedside Glucose 124 70-90 mg/dl
[2016-12-01] MEDS: MAGNESIUM OXIDE 400 MG TAB PO SCH (20:24)
[2016-12-01] MEDS: TRAZODONE HCL 50 MG TAB PO SCH (20:24)
[2016-12-02] VITALS: O2SAT 98
[2016-12-02 00:06] VITALS: BP 95/60; PULSE 86; TEMP 36.6; O2SAT 92
[2016-12-02] MEDS: LORAZEPAM 0.5 MG TAB PO PRN (04:27)
[2016-12-02 07:05] LABS: BUN/CREATININE RATIO 44.8 (10-20); CREATININE 1.7 mg/dl (0.60-1.20); POTASSIUM 3.7 mmol/L (3.5-5.1)
[2016-12-02 07:30] VITALS: BP 97/58; PULSE 85; TEMP 36.6; O2SAT 92
[2016-12-02] MEDS: METOPROLOL SUCC 25MG EXT REL TAB PO SCH ×2 (08:00→19:35)
[2016-12-02] MEDS ORDERED: TORSEMIDE 20 MG TAB PO SCH (08:00)
[2016-12-02] MEDS: ALLOPURINOL 300 MG TAB PO SCH (08:21)
[2016-12-02] MEDS: TORSEMIDE 20 MG TAB PO SCH ×2 (08:21→19:30)
[2016-12-02] MEDS: ASPIRIN 81 MG ECTAB PO SCH (08:21)
[2016-12-02] MEDS: ATORVASTATIN 40 MG TAB PO SCH (08:22)
[2016-12-02] MEDS: POTASSIUM CHLORIDE 20 MEQ TABCR PO SCH (08:22)
[2016-12-02] MEDS: SENNA 8.6 MG TAB PO SCH (08:23)
[2016-12-02] MEDS: SPIRONOLACTONE 25 MG TAB PO SCH (08:23)
[2016-12-02] MEDS: DOCUSATE SODIUM 100 MG CAP PO SCH ×2 (08:23→19:28)
[2016-12-02] MEDS: DOXYCYCLINE HYCLATE 100 MG CAP PO SCH ×2 (08:24→19:29)
[2016-12-02] MEDS: MAGNESIUM OXIDE 400 MG TAB PO SCH ×2 (08:24→19:29)
[2016-12-02] MEDS: ISOSORBIDE DINITRATE 5 MG TAB PO SCH ×2 (08:25→16:43)
[2016-12-02] MEDS: INSULIN ASPART 100 UNITS/ML 3 ML PEN SC SCH ×4 (09:01→22:00)
--- NOTE | 2016-12-02 11:01 | Cardiology Follow-Up ---
Subjective General Date of Service: Dec 02, 2016. Chief Complaint: Heart failure Pt evaluation today including: conversation w/ patient, physical exam, chart review, lab review, review of studies, review of inpatient medication list History of Present Illness Patient seen and examined. Comfortable at rest. Less dyspneic. Distal peripheral edema and cellulitis are mildly improved today. Denies chest pain, cough, palpitations. I/O's are negative 13,255 ml's this admission. Weights are not accurately recorded. Telemetry: Nonmonitored bed today (454) Allergies Coded Allergies: Naproxen (Verified Allergy, Unknown, ., 11/17/16) Tramadol (Verified Allergy, Unknown, ., 11/17/16) Social History Hx Tobacco Use In Past Year?: No Hx Alcohol Use - Type And Amou: No Physical Exam Vital Signs Last Vital Signs Documentation Date Time Temp Pulse Resp B/P (MAP) Pulse Ox O2 Delivery O2 Flow Rate FiO2 12/02/16 07:30 36.6 85 20 97/58 (71) 92 Room Air 11/25/16 16:00 2.0 Physical Exam Constitutional: General Apperance: overweight Level of Distress: NAD Psychiatric: Mental Status: active & alert Orientation: to time, to place, to person Memory: recent memory normal, remote memory normal Head: normocephalic, atraumatic Eyes: Pupils: PERRLA Neck: pertinent finding (No overt JVD ) Lungs: Respiratory effort: no dyspnea Auscultation: no wheezing, no rales/crackles, no rhonchi, decreased breath sounds Cardiovascular: Heart Auscultation: RRR, normal S1, normal S2, no rubs, II/ TONIA, gallop Peripheral Pulses: Radial Pulse: normal on the left, normal on the right Dorsalis Pedis Pulse: absent on the left, absent on the right Abdomen: Bowel Sounds: normal Inspection & Palpation: soft, non-distended, no masses Extremities: no varicosities, no clubbing, no ulcers, edema (2+ distal lower extremity edema with erythema suggestive of bilateral lower extremity cellulitis. ) Neurologic: Cranial Nerves: grossly intact Assessment and Plan Assessment and Plan Admission with acute decompensated systolic congestive heart failure Severe systolic congestive heart failure (presumably ischemic) with NYHA Class III+ dyspnea, LVEF 15-20%, QRS interval less than 150 ms. Stage III chronic kidney disease Cardiorenal syndrome. Bilateral lower extremity cellulitis PSVT versus possible atrial flutter, resolved. Untreated obstructive sleep apnea Type II diabetes mellitus ACEI/ARB contraindication. History of left breast cancer status post lumpectomy and radiation therapy, 2001 PLAN AND RECOMMENDATIONS: Continue as prescribed/listed Will arrange follow-up in [place] as requested Patient seen and examined personally, assessment as above. Now on oral medical regimen, CHF instructions emphasized Rafa Nolan MD Laboratory Results Last 24 Hours Test 12/01/16 11:36 12/01/16 16:30 12/01/16 20:22 12/02/16 05:49 Bedside Glucose 124 mg/dl 125 mg/dl 165 mg/dl Sodium Level 135 mmol/L Potassium Level 3.7 mmol/L Chloride Level 94 mmol/L Carbon Dioxide Level 34 mmol/L Anion Gap 7.0 mmol/L Blood Urea Nitrogen 76 mg/dl Creatinine 1.70 mg/dl Est Creatinine Clear Calc Drug Dose 28.2 ml/min Estimated GFR () 30.9 Estimated GFR (Non- 26.6 BUN/Creatinine Ratio 44.8 Random Glucose 112 mg/dl Calcium Level 10.0 mg/dl
[2016-12-02 15:09] VITALS: BP 103/67; PULSE 93; TEMP 36.4; O2SAT 98
--- NOTE | 2016-12-02 16:38 | Progress Note ---
Internal Med Progress Note Date of Service: Dec 02, 2016. Provider Documentation: SUBJECTIVE: The patient was seen and examined Remains stable since admission Diuresing more recently Has had Rectal bleed yesterday 10/31/16 -no more episodes Remains stable but says not yet ready to be discharged OBJECTIVE: Vital Signs-as noted below Exam: General-No distress at rest Eyes-Normal ENT-normal Neck-supple Lungs-Decreased breath sound bilaterally Minimal crackles at the bases Heart-Regular Abdomen-Distended,soft ,nontender,possible mild ascites Extremities-1 to 2 + edema bilaterally with cellulitis has redness but no warmth and or tenderness Neuro-AAOx3 Generally weak and lethargic Lab data as noted below. ASSESSMENT & PLAN: This is an 86 year old female with a PMH of CAD, presumed ischemic cardiomyopathy and systolic CHF with EF of ~ 15-20%, HTN, DM2, HLD, CKD stage 3 presents with worsening shortness of breath, edema, weight gain and bilateral legs cellulitis Ischemic Cardiomyopathy Acute on Chronic Systolic CHF Presented with bilateral lower extremity edema ECHO shows an EF of around 15-20% IV Lasix 80mg BID for now with Metolazone and Aldactone Monitor kidney function and monitor Electrolytes Diuresing enough Transition to Torsemide 50mg BID from today Transferred to [place] Remains stable Renal function remains stable Likely home tomorrow morning Acute Kidney Injury superimposed on CKD stage 3 Creatinine on admission = 2.1 Remains stable at 1.9 for the las few days Will check Renal function tomorrow Kidney function remains stable Bilateral Legs Cellulitis Continue Doxycycline Complicated by Edema Remains erythematous but no other signs of Inflammation UTI - resolved abx. stopped Confusion Likely /hospital psychosis Appreciate mental health input - no medical intervention as this would make things worse Denies any acute issue now CAD Continue Toprol XL, spironolactone, Isordil, ASA, and statin. No TAMMY inhibition, ARB, or Entresto No acute symptoms DM Monitor Blood sugar Continue SSI DVT ppx Subq heparin DNR Disposition PT/OT evaluation Increase ambulation Likely home tomorrow Vital Signs: Date Time Temp Pulse Resp B/P (MAP) Pulse Ox O2 Delivery O2 Flow Rate FiO2 12/02/16 15:09 36.4 93 18 103/67 (79) 98 Room Air 12/02/16 07:30 36.6 85 20 97/58 (71) 92 Room Air 12/02/16 00:06 36.6 86 20 95/60 (72) 92 Room Air 12/02/16 00:00 98 Room Air 12/01/16 20:00 98 Room Air 12/01/16 17:47 101/67 (78) Lab Results: Results Past 24 Hours Test 12/01/16 20:22 12/02/16 05:49 Range/Units Bedside Glucose 165 70-90 mg/dl Sodium Level 135 136-145 mmol/L Potassium Level 3.7 3.5-5.1 mmol/L Chloride Level 94 98-107 mmol/L Carbon Dioxide Level 34 21-32 mmol/L Anion Gap 7.0 3-11 mmol/L Blood Urea Nitrogen 76 7-18 mg/dl Creatinine 1.70 0.60-1.20 mg/dl Est Creatinine Clear Calc Drug Dose 28.2 ml/min Estimated GFR () 30.9 Estimated GFR (Non- 26.6 BUN/Creatinine Ratio 44.8 10-20 Random Glucose 112 70-99 mg/dl Calcium Level 10.0 8.5-10.1 mg/dl
[2016-12-02 16:43] VITALS: BP 97/65
[2016-12-02 19:33] VITALS: BP 99/65; PULSE 86; O2SAT 94
[2016-12-02] MEDS: TRAZODONE HCL 50 MG TAB PO SCH (22:25)
[2016-12-03 01:00] VITALS: BP 113/79; PULSE 91; TEMP 36.5; O2SAT 94
[2016-12-03] MEDS: LORAZEPAM 0.5 MG TAB PO PRN (01:01)
[2016-12-03 07:46] VITALS: BP 92/55; PULSE 82; TEMP 37.1; O2SAT 97
[2016-12-03] MEDS: METOPROLOL SUCC 25MG EXT REL TAB PO SCH (08:20)
[2016-12-03] MEDS: SENNA 8.6 MG TAB PO SCH (08:21)
[2016-12-03] MEDS: DOXYCYCLINE HYCLATE 100 MG CAP PO SCH (08:21)
[2016-12-03] MEDS: ISOSORBIDE DINITRATE 5 MG TAB PO SCH (08:21)
[2016-12-03] MEDS: ALLOPURINOL 300 MG TAB PO SCH (08:22)
[2016-12-03] MEDS: DOCUSATE SODIUM 100 MG CAP PO SCH (08:22)
[2016-12-03] MEDS: ATORVASTATIN 40 MG TAB PO SCH (08:22)
[2016-12-03] MEDS: ASPIRIN 81 MG ECTAB PO SCH (08:22)
[2016-12-03] MEDS: MAGNESIUM OXIDE 400 MG TAB PO SCH (08:22)
[2016-12-03] MEDS: TORSEMIDE 20 MG TAB PO SCH (08:23)
[2016-12-03] MEDS: POTASSIUM CHLORIDE 20 MEQ TABCR PO SCH (08:24)
[2016-12-03] MEDS: SPIRONOLACTONE 25 MG TAB PO SCH (08:24)
[2016-12-03] MEDS: INSULIN ASPART 100 UNITS/ML 3 ML PEN SC SCH ×2 (08:34→12:44)
--- NOTE | 2016-12-03 09:23 | Cardiology Follow-Up ---
Subjective General Date of Service: Dec 03, 2016. Chief Complaint: Heart failure Pt evaluation today including: conversation w/ patient, physical exam, chart review, lab review, review of studies, review of inpatient medication list History of Present Illness Patient seen and examined. Nausea this AM, aided by drinking juice. Mild cough. Stable peripheral edema. Minimally improved cellulitis changes. Denies chest pain or palpitations. I/O's are negative 14,570 ml's this admission. Weights are not accurately recorded. Telemetry: Nonmonitored bed today (454) Allergies Coded Allergies: Naproxen (Verified Allergy, Unknown, ., 11/17/16) Tramadol (Verified Allergy, Unknown, ., 11/17/16) Social History Hx Tobacco Use In Past Year?: No Hx Alcohol Use - Type And Amou: No Physical Exam Vital Signs Last Vital Signs Documentation Date Time Temp Pulse Resp B/P (MAP) Pulse Ox O2 Delivery O2 Flow Rate FiO2 12/03/16 07:46 37.1 82 18 92/55 (67) 97 12/03/16 00:00 Room Air 11/25/16 16:00 2.0 Physical Exam Constitutional: General Apperance: overweight Level of Distress: NAD Psychiatric: Mental Status: active & alert Orientation: to time, to place, to person Memory: recent memory normal, remote memory normal Head: normocephalic, atraumatic Eyes: Pupils: PERRLA Neck: pertinent finding (No overt JVD ) Lungs: Respiratory effort: no dyspnea Auscultation: no wheezing, no rales/crackles, no rhonchi, decreased breath sounds Cardiovascular: Heart Auscultation: RRR, normal S1, normal S2, no rubs, II/ TONIA, gallop Peripheral Pulses: Radial Pulse: normal on the left, normal on the right Dorsalis Pedis Pulse: absent on the left, absent on the right Abdomen: Bowel Sounds: normal Inspection & Palpation: soft, non-distended, no masses Extremities: no varicosities, no clubbing, no ulcers, edema (2+ distal lower extremity edema with erythema suggestive of bilateral lower extremity cellulitis. ) Neurologic: Cranial Nerves: grossly intact Assessment and Plan Assessment and Plan Admission with acute decompensated systolic congestive heart failure Severe systolic congestive heart failure (presumably ischemic) with NYHA Class III+ dyspnea, LVEF 15-20%, QRS interval less than 150 ms. Stage III chronic kidney disease Cardiorenal syndrome. Bilateral lower extremity cellulitis PSVT versus possible atrial flutter, resolved. Untreated obstructive sleep apnea Type II diabetes mellitus ACEI/ARB contraindication. History of left breast cancer status post lumpectomy and radiation therapy, 2001 PLAN AND RECOMMENDATIONS: 1. Basic metabolic panel requested. 2. Continue as prescribed/listed, pending #1. 3. Follow-up in [place] as requested; office aware - will contact patient post discharge Laboratory Results Last 24 Hours Test 12/02/16 11:26 12/02/16 16:50 12/02/16 20:24 12/03/16 07:38 Bedside Glucose 145 mg/dl 124 mg/dl 151 mg/dl 121 mg/dl Test 12/03/16 08:43
[2016-12-03 09:38] LABS: BUN/CREATININE RATIO 44.2 (10-20); CALCIUM 10.3 mg/dl (8.5-10.1); CREATININE 1.8 mg/dl (0.60-1.20); POTASSIUM 3.3 mmol/L (3.5-5.1)
[2016-12-03] MEDS ORDERED: POTASSIUM CHLORIDE 10 MEQ TABCR PO ONE (12:00)
--- NOTE | 2016-12-03 15:00 | Progress Note ---
Internal Med Progress Note Date of Service: Dec 03, 2016. Provider Documentation: SUBJECTIVE: The patient was seen and examined Much improved over time Ambulating reasonably Ready to be discharged today OBJECTIVE: Vital Signs-as noted below Exam: General-No distress at rest Eyes-Normal ENT-normal Neck-supple Lungs-Decreased breath sound bilaterally Minimal crackles at the bases Heart-Regular Abdomen-Distended,soft ,nontender,possible mild ascites Extremities-1 to 2 + edema bilaterally with cellulitis has redness but no warmth and or tenderness Neuro-AAOx3 Generally weak and lethargic Lab data as noted below. ASSESSMENT & PLAN: This is an 86 year old female with a PMH of CAD, presumed ischemic cardiomyopathy and systolic CHF with EF of ~ 15-20%, HTN, DM2, HLD, CKD stage 3 presents with worsening shortness of breath, edema, weight gain and bilateral legs cellulitis Ischemic Cardiomyopathy Acute on Chronic Systolic CHF Presented with bilateral lower extremity edema ECHO shows an EF of around 15-20% IV Lasix 80mg BID for now with Metolazone and Aldactone Monitor kidney function and monitor Electrolytes Diuresing enough Transition to Torsemide 50mg BID Likely home tomorrow morning Renal function remains stable Denies any symptoms Will discharge home today Acute Kidney Injury superimposed on CKD stage 3 Creatinine on admission = 2.1 Remains stable at 1.9 for the las few days Will check Renal function tomorrow Kidney function remains stable Bilateral Legs Cellulitis Continue Doxycycline Complicated by Edema Remains erythematous but no other signs of Inflammation Clinically much improved UTI - resolved abx. stopped Confusion Likely sundowning/hospital psychosis Appreciate mental health input - no medical intervention as this would make things worse Denies any acute issue now CAD Continue Toprol XL, spironolactone, Isordil, ASA, and statin. No TAMMY inhibition, ARB, or Entresto No acute symptoms DM Monitor Blood sugar Continue SSI DVT ppx Subq heparin DNR Disposition PT/OT evaluation Increase ambulation Discussed with the Daughter Likely home today Vital Signs: Date Time Temp Pulse Resp B/P (MAP) Pulse Ox O2 Delivery O2 Flow Rate FiO2 12/03/16 08:00 Room Air 12/03/16 07:46 37.1 82 18 92/55 (67) 97 12/03/16 01:00 36.5 91 16 113/79 (90) 94 12/03/16 00:00 Room Air 12/02/16 20:00 Room Air 12/02/16 19:33 86 20 99/65 (76) 94 Room Air 12/02/16 16:43 97/65 (76) 12/02/16 16:00 Room Air 12/02/16 15:09 36.4 93 18 103/67 (79) 98 Room Air Lab Results: Results Past 24 Hours Test 12/02/16 16:50 12/02/16 20:24 12/03/16 07:38 12/03/16 08:43 Range/Units Bedside Glucose 124 151 121 70-90 mg/dl Sodium Level 135 136-145 mmol/L Potassium Level 3.3 3.5-5.1 mmol/L Chloride Level 92 98-107 mmol/L Carbon Dioxide Level 35 21-32 mmol/L Anion Gap 8.0 3-11 mmol/L Blood Urea Nitrogen 80 7-18 mg/dl Creatinine 1.80 0.60-1.20 mg/dl Est Creatinine Clear Calc Drug Dose 26.7 ml/min Estimated GFR () 28.8 Estimated GFR (Non- 24.9 BUN/Creatinine Ratio 44.2 10-20 Random Glucose 129 70-99 mg/dl Calcium Level 10.3 8.5-10.1 mg/dl
[2016-12-03] MEDS ORDERED: DXY100 PO (15:07)
[2016-12-03] MEDS ORDERED: DMD20 PO (15:07)
[2016-12-03] MEDS ORDERED: SPR25 PO (15:07)
[2016-12-03] MEDS ORDERED: MCRK20 PO (15:07)
[2016-12-03] MEDS ORDERED: TPRSR25 PO (15:07)
[2016-12-03] MEDS ORDERED: CLC100 PO (15:07)
[2016-12-03] MEDS ORDERED: LCTX PO (15:07)
[2016-12-03] MEDS ORDERED: MGNO400 PO (15:07)
[2016-12-03] MEDS ORDERED: ISR5 PO (15:07)
--- NOTE | 2016-12-03 15:14 | Discharge Instructions ---
Discharge Instructions Date of Service Dec 03, 2016. Admission Reason for Admission: CHF Discharge Discharge Diagnosis / Problem: CHF,Bilateral Leg cellulitis Discharge Goals Goal(s): Prevent Disease Progression Activity Recommendations Activity Limitations: resume your previous activity (Take precaution to avoid fall) . Instructions / Follow-Up Instructions / Follow-Up Dr Escobar on 12/07/16 ,Please keep cardiology appointment Current Hospital Diet Patient's current hospital diet: AHA Diet (Heart Healthy), Low Sodium Diet (2gm Na), Diabetes Type 2 Diet Discharge Diet Recommended Diet: AHA Diet (Heart Healthy), Low Sodium Diet (2gm Na) Fluid Restriction: 1500 ml (6 cups) Pending Studies Studies pending at discharge: no Medical Emergencies . Who to Call and When: Medical Emergencies: If at any time you feel your situation is an emergency, please call 911 immediately. . Non-Emergent Contact Non-Emergency issues call your: Primary Care Provider . Past History Medical & Surgical History: (1) CKD (chronic kidney disease), stage III (2) DM type 2 (diabetes mellitus, type 2) (3) HTN (hypertension) (4) Systolic CHF (5) EVGENY (obstructive sleep apnea) (6) HLD (hyperlipidemia) (7) Anxiety . "Provider Documentation" section prepared by Kari Casas. . VTE Core Measure Inpt VTE Proph given/why not?: Unfractionated heparin SQ
[2016-12-03 15:56] VITALS: BP 92/55; PULSE 82; TEMP 37.1; O2SAT 97
[2016-12-03 15:57] VITALS: BP 97/61; PULSE 72; TEMP 36.8; O2SAT 98
[2016-12-04] MEDS ORDERED: POTASSIUM CHLORIDE 10 MEQ TABCR PO SCH (08:00)
--- NOTE | 2016-12-04 08:18 | Discharge Summary ---
Discharge Summary Date of Service Dec 04, 2016. Discharge Summary Admission Date: Nov 17, 2016 at 19:05 Discharge Date: Dec 03, 2016 Discharge Disposition: Home Principal Diagnosis: CHF,Bilateral Leg cellulitis Secondary Diagnoses/Problems: Please see H&P and Hospital Progress note Consultations: Cardiology Medication Reconciliation New Medications: Lactobacillus Acidophilus (Lactinex) Tab 2 TAB PO BID, #30 TAB Potassium Chloride (Klor-Con M20) 20 Meq Tabcr 20 MEQ PO DAILY, #30 Docusate Sodium (Docusate Sodium) 100 Mg Cap 100 MG PO BID for 30 Days, #60 CAP Doxycycline Hyclate (Doxycycline Hyclate) 100 Mg Cap 100 MG PO BID for 6 Days, #12 CAP Isosorbide Dinitrate (Isosorbide Dinitrate) 5 Mg Tab 5 MG PO BID17 for 30 Days, #60 TAB Magnesium Oxide (Magnesium-Oxide) 400 Mg Tab 400 MG PO BID for 30 Days, #60 TAB Metoprolol Succinate (Metoprolol Succinate ER) 25 Mg Tabcr 25 MG PO BID for 30 Days, #60 Spironolactone (Spironolactone) 25 Mg Tab 25 MG PO QAM for 30 Days, #30 TAB Torsemide (Torsemide) 20 Mg Tab 50 MG PO BID for 30 Days, #150 TAB Continued Medications: Allopurinol (Zyloprim) 300 Mg Tab 300 MG PO DAILY Aspirin (Aspirin Ec) 81 Mg Tab 81 MG PO DAILY Atorvastatin (Lipitor) 40 Mg Tab 40 MG PO DAILY Fluticasone Propionate (Nasal) (Flonase Allergy Relief) 50 Mcg/Act Spr 2 SPRAYS CLARISSE DAILY Lorazepam (Ativan) 0.5 Mg Tab 0.5 MG PO HS PRN for Insomnia Metformin Hcl (Glucophage) 500 Mg Tab 500 MG PO BID Trazodone Hcl (Trazodone) 50 Mg Tab 2 TAB PO HS Discontinued Medications: Furosemide (Lasix) 80 Mg Tab 80 MG PO DAILY Admission Information HPI (per Admitting provider): 86 year old female who presented to the ED by referral of her PCP for evaluation of shortness of breath, worsening edema, and weight gain. 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 She has been been having symptoms of shortness of breath and edema for the past 1 1/2 months. She initially was taking Lasix 80mg daily and that was increased to BID dosing. She continued to have symptoms so Zaroxolyn 3 times weekly was added. Then due to worsening renal function, Zaroxolyn was stopped and she was continued on the Lasix 80mg BID. Labs were then again checked and renal function was unchanged so she was decreased back down to Lasix 80mg daily. Patient reports persistent shortness of breath. She has shortness of breath with minimal activity. She has had a dry non productive cough. She denies chest pain or palpitations. She reports some mild lightheadedness when standing too quickly. No syncopal events. She has lower extremity edema that has been gradually worsening. Abdomen is a little more swollen as well. She denies abdominal pain, nausea, vomiting, or diarrhea. She denies fever or chills. No urinary symptoms. In the ED, patient is saturating well on room air. CXR shows mild CHF. Creat is 2.1, K+ 3.3, Mg+ 1.3. Past Medical/Surgical History Medical Problems: (1) Anxiety Status: Chronic (2) Breast cancer Permanent Comment: s/p lymph node resection Status: Chronic (3) DM type 2 (diabetes mellitus, type 2) Status: Chronic (4) HLD (hyperlipidemia) Status: Chronic (5) HTN (hypertension) Status: Chronic (6) EVGENY (obstructive sleep apnea) Status: Chronic (7) Systolic CHF Status: Chronic Family History non contributory due to patient's advanced age Social History Smoking Status: Never Smoker Alcohol Use: none Immunizations History of Influenza Vaccine: Yes Influenza Vaccine Date: Nov 27, 2015 History of Tetanus Vaccine?: Yes Tetanus Immunization Date: Sep 17, 2015 History of Pneumococcal: Yes Pneumococcal Date: Oct 29, 2014 Multi-Drug Resistant Organisms History of MDRO: No Allergies Coded Allergies: Naproxen (Verified Allergy, Unknown, ., 11/17/16) Tramadol (Verified Allergy, Unknown, ., 11/17/16) Home Medications Scheduled Allopurinol (Zyloprim), 300 MG PO DAILY Aspirin (Aspirin Ec), 81 MG PO DAILY Atorvastatin (Lipitor), 40 MG PO DAILY Fluticasone Propionate (Nasal) (Flonase Allergy Relief), 2 SPRAYS CLARISSE DAILY Furosemide (Lasix), 80 MG PO DAILY Metformin Hcl (Glucophage), 500 MG PO BID Trazodone Hcl (Trazodone), 2 TAB PO HS Scheduled PRN Lorazepam (Ativan), 0.5 MG PO HS PRN for Insomnia Review of Systems ROS per HPI, all other systems reviewed and negative Physical Ex - H&P Physical Exam Vital Signs Date Time Temp Pulse Resp B/P (MAP) Pulse Ox O2 Delivery O2 Flow Rate FiO2 11/17/16 19:41 100 18 102/66 97 Nasal Cannula 2.0 11/17/16 19:34 Nasal Cannula 2.5 11/17/16 17:44 Nasal Cannula 2.0 11/17/16 17:42 95 28 102/62 96 Room Air 11/17/16 16:28 95 Room Air 11/17/16 16:28 95 Room Air 11/17/16 16:28 36.9 101 25 98/60 97 Room Air General Appearance: no apparent distress Head: normocephalic, atraumatic Eyes: normal inspection ENT: hearing grossly normal Neck: supple Respiratory/Chest: + decreased breath sounds, + pertinent finding (mild conversational dyspnea) Cardiovascular: + tachycardia (mild, HR in the 90s; regular rhythm), + pertinent finding (+2 pitting edema BLLE) Abdomen/GI: normal bowel sounds, non tender, soft, + distended Extremities/Musculoskelatal: normal inspection, no calf tenderness Neurologic/Psych: no motor/sensory deficits, alert, normal mood/affect, oriented x 3 Skin: normal color, warm/dry Diagnostics - H&P Diagnostics Laboratory Results Results Past 24 Hours Test 11/17/16 16:29 11/17/16 17:38 Range/Units White Blood Count 6.85 4.8-10.8 K/uL Red Blood Count 4.24 4.2-5.4 M/uL Hemoglobin 11.7 12.0-16.0 g/dL Hematocrit 38.4 37-47 % Mean Corpuscular Volume 90.6 80-100 fL Mean Corpuscular Hemoglobin 27.6 25-34 pg Mean Corpuscular Hemoglobin Concent 30.5 32-36 g/dl Platelet Count 217 130-400 K/uL Mean Platelet Volume 11.3 7.4-10.4 fL Neutrophils (%) (Auto) 78.5 % Lymphocytes (%) (Auto) 14.3 % Monocytes (%) (Auto) 5.8 % Eosinophils (%) (Auto) 0.6 % Basophils (%) (Auto) 0.4 % Neutrophils # (Auto) 5.37 1.4-6.5 K/uL Lymphocytes # (Auto) 0.98 1.2-3.4 K/uL Monocytes # (Auto) 0.40 0.11-0.59 K/uL Eosinophils # (Auto) 0.04 0-0.5 K/uL Basophils # (Auto) 0.03 0-0.2 K/uL RDW Standard Deviation 59.4 36.4-46.3 fL RDW Coefficient of Variation 18.4 11.5-14.5 % Immature Granulocyte % (Auto) 0.4 % Immature Granulocyte # (Auto) 0.03 0.00-0.02 K/uL Sodium Level 141 136-145 mmol/L Potassium Level 3.3 3.5-5.1 mmol/L Chloride Level 101 98-107 mmol/L Carbon Dioxide Level 29 21-32 mmol/L Anion Gap 11.0 3-11 mmol/L Blood Urea Nitrogen 61 7-18 mg/dl Creatinine 2.10 0.60-1.20 mg/dl Est Creatinine Clear Calc Drug Dose 23.8 ml/min Estimated GFR () 23.9 Estimated GFR (Non- 20.6 BUN/Creatinine Ratio 29.0 10-20 Random Glucose 115 70-99 mg/dl Calcium Level 9.3 8.5-10.1 mg/dl Magnesium Level 1.3 1.8-2.4 mg/dl Total Bilirubin 1.4 0.2-1 mg/dl Aspartate Amino Transf (AST/SGOT) 34 15-37 U/L Alanine Aminotransferase (ALT/SGPT) 20 12-78 U/L Alkaline Phosphatase 73 45-117 U/L Troponin I 0.086 0-0.045 ng/ml Pro-B-Type Natriuretic Peptide 74002 0-1800 pg/ml Total Protein 7.0 6.4-8.2 gm/dl Albumin 3.8 3.4-5.0 gm/dl Globulin 3.2 2.5-4.0 gm/dl Albumin/Globulin Ratio 1.2 0.9-2 Arterial Blood pH 7.47 7.35-7.45 Arterial Blood Partial Pressure CO2 34 35-46 mmHg Arterial Blood Partial Pressure O2 78 80-95 mm/Hg Arterial Blood HCO3 25 19-24 mmol/L Arterial Blood Oxygen Saturation 95.2 90-95 % Arterial Blood Base Excess 1.1 -9-1.8 mEq/L Arterial Blood Gas Delivery ROOM AIR Rainer Test POS POS Diagnostic Radiology CXR IMPRESSION: Cardiomegaly and mild pulmonary vascular congestion. No evidence of lobar consolidation BLLE DOPPLER IMPRESSION: No evidence of deep venous thrombus within the bilateral lower extremities. Impression - H&P Impression Assessment and Plan ACUTE ON CHRONIC SYSTOLIC CHF SONIA ON CKD STAGE III - admit to tele - patient presenting to the ED by referral of her PCP for worsening shortness of breath and edema over the past ~ 6 weeks - patient with history of cardiomyopathy, presumed ischemic, with an EF of 20-25 % on echo from 02/2015 (note patient declined further ischemic work up) - patient had been on beta nadeen therapy in the past however it appears as though she self stopped this over the summer - PCP has been titrating diuretic therapy over the past ~ 6 weeks however patient has developed worsening renal function; baseline creat had run in the mid 1's and more recently has been running ~ 1.9-2.1; may need to allow higher creatine to allow for appropriate diuresis - noted no TAMMY/ARB therapy due to CKD - consider resumption of beta nadeen if BP allows - will give Lasix 40mg IV tonight - place squires for strict I/Os, daily weight, low Na+ diet - update echo - cardiology consult, input appreciated ELEVATED TROPONIN - likely demand ischemia due to acute CHF - no reports of chest pain - EKG shows new intraventricular block which is new from EKG from April 2015 however was present on EKG from the clinic on 11/06/16 - will continue to cycle cardiac enzymes - continue ASA and statin HYPOKALEMIA, HYPOMAGNESEMIA - replace, follow up labs in AM DM - hgb a1c 5.9 08/2016 - hold metformin and utilize SSI while hospitalized DVT PROPHYLAXIS - SQ Heparin CODE STATUS - Patient is a DNR as per my discussion with her. DISPO - In my clinical judgment this beneficiary meets acute admission criteria, established by CMS, that includes being hospitalized through two midnights. 86 yo F with chronic systolic heart failure from presumed ischemic heart disease (declined workup in past/no ICD in place-declined) p/w 10 lb weight gain. She has chronic orthopnea and JASMINE that has not changed. She is comfortable and denies any chest pain. She has had multiple changes in her diuretic therapy as above with Lasix and metolazone in recent weeks. She also reports a dry cough x 2 weeks. Agree that mildly elevated troponin is related to demand ischemia, however, TRS is 5 so would be quick to add heparin if cardiac enzymes carlos overnight. She self administers meds and has noted noncompliance in the past. Would likely benefit from spironolactone, hydralazine/nitrates as cannot take ACEI or ARB at this time, BB. No mortality benefit from dig but this has also been suggested. Defer med management to Cardiology. Repeat TTE pending with h/o . Denies syncope or angina. Awaiting response from Lasix given tonight and titrate as tolerated for symptom relief. I have seen and examined the patient and otherwise agree with the assessment and plan as stated. DO Parmjit Level of Care Telemetry Advanced Directives Existing Living Will: Yes Existing Power of Workforce Management Analyst: Yes Resuscitation Status DO NOT RESUSCITATE VTE Prophylaxis VTE Risk Assessment Done? Y/N: Yes Risk Level: Moderate Physical Exam (per Admitting): General Appearance: no apparent distress Head: normocephalic, atraumatic Eyes: normal inspection ENT: hearing grossly normal Neck: supple Respiratory/Chest: + decreased breath sounds, + pertinent finding (mild conversational dyspnea) Cardiovascular: + tachycardia (mild, HR in the 90s; regular rhythm), + pertinent finding (+2 pitting edema BLLE) Abdomen/GI: normal bowel sounds, non tender, soft, + distended Extremities/Musculoskelatal: normal inspection, no calf tenderness Neurologic/Psych: no motor/sensory deficits, alert, normal mood/affect, oriented x 3 Skin: normal color, warm/dry Hospital Course This is an 86 year old female with a PMH of CAD, presumed ischemic cardiomyopathy and systolic CHF with EF of ~ 15-20%, HTN, DM2, HLD, CKD stage 3 presents with worsening shortness of breath, edema, weight gain and bilateral legs cellulitis Ischemic Cardiomyopathy Acute on Chronic Systolic CHF Presented with bilateral lower extremity edema ECHO shows an EF of around 15-20% IV Lasix 80mg BID for now with Metolazone and Aldactone Monitor kidney function and monitor Electrolytes Diuresing enough Transition to Torsemide 50mg BID Likely home tomorrow morning Renal function remains stable Denies any symptoms Will discharge home today Acute Kidney Injury superimposed on CKD stage 3 Creatinine on admission = 2.1 Remains stable at 1.9 for the las few days Will check Renal function tomorrow Kidney function remains stable Bilateral Legs Cellulitis Continue Doxycycline Complicated by Edema Remains erythematous but no other signs of Inflammation Clinically much improved UTI - resolved abx. stopped Confusion Likely sundowning/hospital psychosis Appreciate mental health input - no medical intervention as this would make things worse Denies any acute issue now CAD Continue Toprol XL, spironolactone, Isordil, ASA, and statin. No TAMMY inhibition, ARB, or Entresto No acute symptoms DM Monitor Blood sugar Continue SSI DVT ppx Subq heparin DNR Disposition PT/OT evaluation Increase ambulation Discussed with the Daughter Likely home today Total time spent on discharge = 35 minutes This includes examination of the patient, discharge planning, medication reconciliation, and communication with other providers. Discharge Instructions Date of Service Dec 03, 2016. Admission Reason for Admission: CHF Discharge Discharge Diagnosis / Problem: CHF,Bilateral Leg cellulitis Discharge Goals Goal(s): Prevent Disease Progression Activity Recommendations Activity Limitations: resume your previous activity (Take precaution to avoid fall) . Instructions / Follow-Up Instructions / Follow-Up Dr Escobar on 12/07/16 ,Please keep cardiology appointment Current Hospital Diet Patient's current hospital diet: AHA Diet (Heart Healthy), Low Sodium Diet (2gm Na), Diabetes Type 2 Diet Discharge Diet Recommended Diet: AHA Diet (Heart Healthy), Low Sodium Diet (2gm Na) Fluid Restriction: 1500 ml (6 cups) Pending Studies Studies pending at discharge: no Medical Emergencies . Who to Call and When: Medical Emergencies: If at any time you feel your situation is an emergency, please call 911 immediately. . Non-Emergent Contact Non-Emergency issues call your: Primary Care Provider . Past History Medical & Surgical History: (1) CKD (chronic kidney disease), stage III (2) DM type 2 (diabetes mellitus, type 2) (3) HTN (hypertension) (4) Systolic CHF (5) EVGENY (obstructive sleep apnea) (6) HLD (hyperlipidemia) (7) Anxiety . "Provider Documentation" section prepared by Kari Casas. . VTE Core Measure Inpt VTE Proph given/why not?: Unfractionated heparin SQ <Electronically signed by Kari Casas M.D.> Signed: 12/03/16 1514 Additional Copies To Radames Valdez M.D.
== END 2016-12-03 16:38 | disposition home or self-care (01) | DRG 291 ==
LOC: EDBD 16:19 → C.EDC 16:20 → C.2T 19:05 → ENRESERV 19:18 → C.MS4W 12-01 15:15
PROVIDERS: ADMIT Hospitalist; ATTEND Internal Medicine
DX: I13.0 Hypertensive heart and chronic kidney disease with heart failure and stage 1 through stage 4 chronic kidney disease, or unspecified chronic kidney disease (principal); I50.23 Acute on chronic systolic (congestive) heart failure; N39.0 Urinary tract infection, site not specified; N17.9 Acute kidney failure, unspecified; Z66 Do not resuscitate; N18.3 Chronic kidney disease, stage 3 (moderate); F41.9 Anxiety disorder, unspecified; I12.9 Hypertensive chronic kidney disease with stage 1 through stage 4 chronic kidney disease, or unspecified chronic kidney disease; E11.9 Type 2 diabetes mellitus without complications; E78.5 Hyperlipidemia, unspecified; G47.33 Obstructive sleep apnea (adult) (pediatric); E87.6 Hypokalemia; E83.42 Hypomagnesemia; K58.9 Irritable bowel syndrome, unspecified; Z85.3 Personal history of malignant neoplasm of breast; Z79.82 Long term (current) use of aspirin; Z80.3 Family history of malignant neoplasm of breast